=== PATIENT | female | born 1970 | race Caucasian/White ===

== ENCOUNTER 2017-04-18 13:15 | Outpatient (CLI) | payer BC | END 2017-04-18 13:16 | disposition home or self-care (01) | LOC: ULT 13:15 | PROVIDERS: ATTEND Internal Medicine Hematology & Oncology | DX: Z51.11 Encounter for antineoplastic chemotherapy (principal); C15.8 Malignant neoplasm of overlapping sites of esophagus; I34.0 Nonrheumatic mitral (valve) insufficiency; I07.1 Rheumatic tricuspid insufficiency | CPT/HCPCS: 80053; 82248; 83615; 84100; 84550; 85025; 93306 ==

== ENCOUNTER 2017-05-03 20:24 | Inpatient (IN) | payer BC ==
[~2017-05-03 20:24] MED LIST: ISOVUE-370 76%-LOCM 1 ML ONE
[2017-05-03 21:17] LABS: Hematocrit 37.1 % (36.0-47.0); Mean Platelet Volume 6.9 fL (7.4-10.4); Red Blood Cell (RBC) Count 4.33 mill/uL (4.20-5.40); White Blood Cell (WBC) Count 0.5 thou/uL (4.8-10.8)
[2017-05-03 21:26] LABS: ALT (SGPT) 108 U/L (8-55); AST (SGOT) 81 U/L (5-34); Alkaline Phosphatase 131 U/L (40-150); Anion Gap 13 mmol/L (10-20); BUN (Urea Nitrogen) 4 mg/dL (7.0-18.7); Bilirubin, Total 1.9 mg/dL (0.2-1.2); Calc. Creatinine Clearance 0 mL/min (70-130); Calcium 8.2 mg/dL (7.8-10.44); Carbon Dioxide 21 mmol/L (22-29); Chloride 98 mmol/L (98-107); Estimated GFR-MDRD Greater than 90; Globulin 2.6 g/dL (2.4-3.5); Lipase 66 U/L (8-78)
--- NOTE | 2017-05-03 21:41 | RAD ---
PORTABLE CHEST ONE VIEW: 05/03/2017 8:36 p.m. HISTORY: Fever. Dizziness. Diarrhea. Nausea. COMPARISON: 03/19/2017 FINDINGS: The right-sided Port-A-Cath remains in place. The heart size is normal. The lungs are well expande d without confluent areas of consolidation, pneumothorax, or pleural effusions. IMPRESSION: No acute process. POS: [facility]
[2017-05-03 22:08] LABS: Lactic Acid - Sepsis 2.8 mmol/L (0.5-2.2)
[2017-05-03] MEDS ORDERED: Acetaminophen 325 MG TAB ONE (22:38)
[2017-05-03] MEDS ORDERED: Ondansetron HCl/PF 4 MG/2 ML Vial ONE (22:38)
[2017-05-03 22:44] LABS: Bilirubin Small (Negative); Blood, Urine Negative (Negative); Glucose, Urine (Dipstick) Negative (Negative); Ketone, Urine Trace mg/dL (Negative); Nitrite Negative (Negative); Protein, Urine (Dipstick) Negative (Neg-Trace)
[2017-05-03] MEDS ORDERED: Cefepime 2 GM in Sodium Chloride 0.9% 100 ML IVPB SCH (22:45)
[2017-05-03 22:47] LABS: Bacteria/HPF None Seen HPF (None Seen); Hyaline Casts/LPF 0-3 HYALINE CAST LPF (0-3 Hyaline); RBC/HPF 0-3 HPF (0-3); Squamous Epithelial 0-3 HPF (0-3); WBC/HPF 0-3 HPF (0-3)
[2017-05-03] MEDS ORDERED: Potassium Chloride 20 MEQ in Sodium Chloride 0.9% 250 ML 250 ML IVPB SCH (23:45)
--- NOTE | 2017-05-03 23:46 | PDOC.EVN ---
Event Note - Event Note Event Note: [id number] h&p dictated 1. Neutropenic fever 2. Abdominal pain + Diarrhea 3. Hypokalemia 4. Hyponatremia 5. Metastatic esophageal ca plan: see orders
--- NOTE | 2017-05-03 23:58 | CT ---
CT ABDOMEN AND PELVIS WITH IV CONTRAST 05/03/17 HISTORY: Fever, nausea, vomiting, diarrhea, diffuse abdominal pain. Patient is currently undergoing chemother apy for esophageal cancer. Last treatment eight days ago. FINDINGS: Comparison is made with exam of 03/07/17. There has been interval improvement in the left lower lobe consolidation since the CT scan of the est dated 03/10/17. Bilateral pleural effusions have resolved. There are changes of fatty infiltration of the liver. There is focal area of relatively lower attenu ation in the liver close to the hilum which may be part of the fatty infiltration since there is a v essel passing through this region and less likely mass. The patient is post cholecystectomy. The spl een is enlarged. The pancreas, and kidneys are normal. There has been interval reduction in the size of the upper abdominal lymph nodes measuring 16 mm in the gastrohepatic region and 15 mm in the rig ht retrocrural region. The right adrenal mass currently measures 2 cm. The left adrenal mass has res olved in the interim. No free air is seen. There is a small amount of free fluid in the pelvis. The uterus and ovaries are present. The right retroperitoneal soft tissue mass/enlarged lymph node is significantly smaller. T he small bowel loops are not abnormally dilated. No osteolytic or osteoblastic lesions are noted. IMPRESSION: 1. Interval improvement since 03/07/17. 2. Small amount of free fluid in the pelvis is new since the previous exam of 03/07/17. POS: [facility]
[2017-05-04] MEDS ORDERED: HYDROcodone/Acetaminophen 5/325 mg Tablet PO PRN (00:34)
[2017-05-04] MEDS ORDERED: Ondansetron HCl/PF 4 MG/2 ML Vial IVP PRN (00:34)
[2017-05-04] MEDS ORDERED: Acetaminophen 325 MG TAB PO PRN (00:34)
[2017-05-04] MEDS ORDERED: PROVENTIL INHALER 6.7 G (200 INHALATIONS) INH PRN (00:36)
[2017-05-04] MEDS ORDERED: Morphine IR Tab 15 MG TAB PO SCH (01:00)
[2017-05-04] MEDS ORDERED: Morphine IR Tab 15 MG TAB PO PRN (01:04)
[2017-05-04 02:09] VITALS: BMI 28.5
[2017-05-04] MEDS: Sodium Chloride 0.9% 1,000 ML IV SCH ×3 (02:36→17:31)
[2017-05-04] MEDS ORDERED: metroNIDAZOLE 500 MG in Premix Bag 1 BAG IVPB SCH (06:00)
[2017-05-04 06:27] LABS: Anion Gap 10 mmol/L (10-20); BUN (Urea Nitrogen) 4 mg/dL (7.0-18.7); Calc. Creatinine Clearance 167 mL/min (70-130); Calcium 7.5 mg/dL (7.8-10.44); Carbon Dioxide 20 mmol/L (22-29); Chloride 103 mmol/L (98-107); Estimated GFR-MDRD Greater than 90
[2017-05-04 06:33] LABS: Anisocytosis MODERATE=16-30 cells (100X) (0-5/hpf); Band 4 % (5-11); Hematocrit 33.7 % (36.0-47.0); Macrocytosis SLIGHT = 6-15 cells (100X) (0-5/hpf); Mean Platelet Volume 8.1 fL (7.4-10.4); Neutrophil 12 % (42-75); Ovalocytes SLIGHT = 2-5 cells (100X) (0-1/hpf); Polychromasia SLIGHT = 2-3 cells (100X) (0-2/hpf); Reactive Lymphocytes 8 % (0-10); Tear Drops SLIGHT = 2-5 cells (100X) (0-1/hpf); White Blood Cell (WBC) Count 1.3 thou/uL (4.8-10.8)
[2017-05-04] MEDS ORDERED: Ferrous Sulfate 325 MG TAB PO SCH (09:00)
[2017-05-04] MEDS ORDERED: Morphine ER 30 MG TAB PO SCH (09:00)
--- NOTE | 2017-05-04 09:45 | HP ---
DATE OF ADMISSION: 05/03/2017 HISTORY OF PRESENT ILLNESS: The patient is 46 years old female with past medical history of metasta tic esophageal cancer, pancreatitis, obesity, currently on chemotherapy, last chemotherapy was 1 wee k back. The patient now came to the hospital because of the fever, body aches, and vomiting, and ab dominal pain. The patient started having abdominal pain yesterday, abdominal pain is more on the ri ght side of the abdomen and it has been constant. No aggravating or relieving factors. Associated with the diarrhea also, the patient has diarrhea for the last 6 months since the chemotherapy was st arted. Complaints of fever, fever is around 102 today. Denies any chest pain, denies any trouble b reathing, denies any cough, denies any sputum production. The patient complains of episodes of vomi ting also and fatigue, that is why she came to the ER. PAST MEDICAL HISTORY: As per HPI. PAST SURGICAL HISTORY: Cholecystectomy, ERCP, knee surgery, MediPort placement. SOCIAL HISTORY: Denies smoking, denies alcohol, denies any drugs. FAMILY HISTORY: Positive for heart problems. REVIEW OF SYSTEMS: Constitutional: Positive for body aches. Positive for fatigue. Positive for f ever. Eyes: Denies any vision problems. Ears: Denies any hearing loss. Neck: Denies any neck p ain. Cardiovascular system: Denies any chest pain, denies any palpitations. Gastrointestinal: Po sitive for abdominal pain. Positive for nausea, vomiting. Musculoskeletal: Positive for generaliz ed body aches. Integumentary: Denies any rash. Cranial nerve system: Denies syncope, denies ligh theadedness. Psychiatric: Denies anxiety. All other review of systems are reviewed and are negati ve. PHYSICAL EXAMINATION: CONSTITUTIONAL/VITAL SIGNS: At the time of H and P performed, blood pressure is stable, 102 in the ER temperature, pulse ox 97% on room air. GENERAL: The patient appears comfortable. HEENT: Pupils equal, round, and reactive. Anterior naris patent. Nose normal. Teeth intact. Ton zandra is moist. NECK: Supple. No JVD. CARDIOVASCULAR SYSTEM: S1, S2 present. Regular rate and rhythm, no murmurs, no rubs, no gallops. RESPIRATORY SYSTEM: Diminished breath sounds present. No wheezing, no rhonchi. Normal effort. GASTROINTESTINAL: Abdomen is tender to palpate, mild all over the abdomen. No guarding, no rebound tenderness. MUSCULOSKELETAL: No edema. INTEGUMENTARY: No rashes seen. PSYCHIATRIC: Mood appropriate at this time. LABORATORY DATA: At the time of H and P performed, white count 2.5, hemoglobin 12, platelet count i s 49. BMP shows sodium 129, potassium 3, chloride 98, CO2 of 21, BUN of 4, creatinine 0.59. AST 81 , ALT 108, alkaline phosphatase 131, albumin 3.4. Chest x-ray no obvious infiltrates seen. ASSESSMENT AND PLAN: The patient is 46 years old female: 1. Neutropenic fever. Plan to do blood cultures, urine culture, and sensitivity. Plan to consult ID to evaluate the patient. Plan to start the patient on broad spectrum antibiotics and will follow the patient. 2. Abdominal pain plus chronic diarrhea. Plan to check CT abdomen and pelvis with IV contrast to e valuate any colitis. Plan to start patient empirically on IV Flagyl also and we will monitor the pa tient closely, p.r.n. pain medications. 3. History of metastatic esophageal cancer. Plan to consult Hematology/Oncology to evaluate the pa tient for nausea, vomiting, p.r.n. antiemetics, start IV fluids. 4. Hypokalemia. Monitor potassium and replace potassium. 5. Hyponatremia due to hypovolemia. Monitor sodium level. We will start IV fluids. The case was discussed in detail with the patient. The patient is FULL CODE.
[2017-05-04] MEDS: Famotidine 20 MG TAB PO SCH ×2 (10:13→20:16)
[2017-05-04] MEDS ORDERED: [UNRECOGNIZED DRUG - OTHER] IVPB PRN (10:39)
[2017-05-04 11:02] LABS: Magnesium 1.3 mg/dL (1.6-2.6)
[2017-05-04] MEDS ORDERED: Magnesium Sulfate 4 GM, Admixture Fee 1 EACH in Sodium Chloride 0.9% 250 ML 250 ML IVPB SCH (11:15)
[2017-05-04] MEDS ORDERED: Ondansetron HCl/PF 8 MG, Admixture Fee 1 EACH in Sodium Chloride 0.9% 50 ML IVPB PRN (11:16)
[2017-05-04] MEDS: Cefepime 2 GM in Sodium Chloride 0.9% 100 ML IVPB SCH ×2 (12:01→20:16)
[2017-05-04] MEDS: K-Phos Neutral 250 MG TAB PO SCH ×3 (12:03→20:16)
--- NOTE | 2017-05-04 12:26 | CON ---
DATE OF CONSULTATION: 05/04/2017 REASON FOR CONSULTATION: Neutropenic fever. HISTORY OF PRESENT ILLNESS: Ms. Cummings is a 46-year-old female, who has stage IV metastatic esophag eal adenocarcinoma, currently undergoing treatment with FOLFOX and weekly Herceptin. Her last Herce ptin was on Sunday. She received FOLFOX on 04/26/2017. She has had significant nausea issues with FOLFOX treatment. She has been on Varubi and Sancuso patch. She removed her Sancuso pa tch on Sunday as directed and began to have nausea. On , she was unable to keep anything d own. She also had some abdominal pain and fevers, so presented to the emergency room for evaluation : Her WBC count was 900. She had a 101.3 fevers, so was admitted for neutropenia. She has been pa ncultured and started on empiric antibiotics with vancomycin and cefepime. Her white count has impr lan today slightly. Her diarrhea has controlled, but she still complains of nausea and overall fat igue. PAST MEDICAL HISTORY: 1. Stage IV esophageal cancer. 2. Arthritis. 3. Anemia. 4. Acid reflux. PAST SURGICAL HISTORY: 1. Left knee replacement. 2. Cholecystectomy. ALLERGIES: No known drug allergies. HOME MEDICATIONS: 1. Ativan 0.5 mg p.o. q.6 hours p.r.n. 2. Protonix 40 mg daily. 3. Sancuso patch every 7 days. 4. Varubi on the day of treatment. 5. Zofran p.r.n. FAMILY HISTORY: Noncontributory. SOCIAL HISTORY: , lives alone. No children. No alcohol, tobacco or illicit drug use. REVIEW OF SYSTEMS: CONSTITUTIONAL: Positive for fever, chills. No night sweats or weight loss. EYES: No blurred or double vision. ENT: No pain, hoarseness, sore throat or dysphagia. CARDIOVASCULAR: No chest pain, palpitations or syncope. RESPIRATORY: No shortness of breath, dyspnea on exertion or orthopnea. GASTROINTESTINAL: Positive for nausea, vomiting, diarrhea, and abdominal pain. GENITOURINARY: No dysuria or hematuria. MUSCULOSKELETAL: No joint or back pain. SKIN: No rash or pruritus. HEMATOLOGIC: No bleeding, bruising or clotting. NEUROLOGIC: Positive for weakness. No headache, numbness, tingling or seizure activity. PSYCHIATRIC: Positive for anxiety and depression. PHYSICAL EXAMINATION: VITAL SIGNS: Temperature is 97.9, pulse is 103, respiratory rate 22, BP is 119/75. She is 100% on room air. GENERAL: Well-developed, well-nourished female in no acute distress. HEENT: Normocephalic, atraumatic. Pupils equal and reactive to light. NECK: Supple with some right supraclavicular lymph nodes. CARDIOVASCULAR: Regular rate and rhythm. LUNGS: Clear. ABDOMEN: Soft, nontender, bowel sounds are positive. EXTREMITIES: No clubbing, cyanosis or edema. SKIN: No rash. HEMATOLOGIC: No petechia or purpura. NEUROLOGICAL: Nonfocal. PSYCHIATRIC: The patient is alert and oriented and appropriate. PERTINENT LABORATORY AND X-RAYS: Current WBCs of 1300, hemoglobin 10.7, hematocrit 33.7, platelet c ount is 39,000, 12% neutrophils, 4% bands, 44% lymphocytes. Sodium is 130, potassium 3.4, chloride 103, CO2 is 20, BUN is 4, creatinine 0.51. Lactic acid is 2.4, calcium 7.5, phosphorus 2, magnesium 1.3, bilirubin is 1.9, AST is 81, ALT is 108, alkaline phosphatase is 131. Serum total protein 3, albumin 3.4, globulin 2.6, lipase 66. Urine is negative for bacteria. Abdominal pelvis CT shows no acute finding but interval improvement since the February CT. Chest x-ray showed no acute process. ASSESSMENT: 1. Metastatic esophageal cancer, on chemotherapy. 2. Neutropenic fever secondary to #1. 3. Thrombocytopenia secondary to #1. 4. Abdominal pain with nausea, vomiting, and diarrhea. DISCUSSION: The patient has been pancultured and started on empiric antibiotics. She has been feve r free since admission. She does complain of nausea. We will add some antiemetic medications as becka bustamante requires a significant amount of meds to control her nausea. We will continue the IV fluid. Teo mmended discharge home once her fever is resolved for greater than 24 hours and her neutrophil count continues to rise.
--- NOTE | 2017-05-04 12:38 | PQF ---
CLINICAL DOCUMENTATION IMPROVEMENT CLARIFICATION FORM: ICD-10 Updated PLEASE DO AN ADDENDUM TO THE PROGRESS NOTE WITH ANY DOCUMENTATION UPDATES OR ADDITIONS AND CARRY THROUGH TO DC SUMMARY. THANK YOU. DATE: 05/04/17 ATTN: DR. CLAY Please exercise your independent, professional judgment in responding to the clarification form. Clinical indicators are provided on the bottom of this form for your review Please check appropriate box(s): [ ] Sepsis due to: (Pna, UTI, gangrenous gall bladder, etc.) Due to: [ ] Device (please specify) [ ] Implant [ ] Graft [ ] Infusion [ ] SIRS due to non-infectious process (please specify etiology) [ ] with organ dysfunction [ ] without organ dysfunction [ ] Severe sepsis with acute organ dysfunction of: (Examples: respiratory failure, encephalopathy, acute kidney failure, other) [ ] Localized infection without sepsis [ ] Other diagnosis [ ] Unable to determine In addition, please specify: Present on Admission (POA): [ ] Yes [ ] No [ ] Unable to determine For continuity of documentation, please document condition throughout progress notes and discharge summary. Thank You. CLINICAL INDICATORS - SIGNS / SYMPTOMS / LABS ER NOTE: "SEPSIS" PULSE 126 RR 25 TEMP 101.3 LACTIC ACID 2.4 GLUCOSE 173 RISKS: METASTATIC ESOPHAGEAL CA WITH CHEMO TREATMENT: IV FLUIDS IV VANCOMYCIN (ER-PRESENT) IV FLAGYL IV MAXIPIME (ER-PRESENT) BLOOD CULTURES CARDIAC MONITORING (This form is maintained as a part of the permanent medical record) 2014 [employer]. All Rights Reserved KAELYN [email or web address] Office: [phone] Thanks GUILLERMO
[2017-05-04] MEDS ORDERED: Lorazepam 0.5 MG TAB PO SCH (13:00)
[2017-05-04] MEDS: Lorazepam 0.5 MG TAB PO SCH ×3 (13:08→20:16)
--- NOTE | 2017-05-04 13:14 | PDOC.PN ---
- Subjective Encounter Start Date: 05/04/17 Encounter Start Time: 12:00 Patient seen and examined. Diarrhea improving. Afebrile. Feels somewhat better. No overnight events - Objective MAR Reviewed: Yes Vital Signs & Weight: Vital Signs (12 hours) Temp Pulse Resp BP Pulse Ox 05/04/17 11:30 99 F 98 16 106/61 96 05/04/17 02:05 97.9 F 103 H 22 H 119/75 100 I&O: 05/03/17 05/04/17 05/05/17 06:59 06:59 06:59 Intake Total 460 Balance 460 Result Diagrams: 05/04/17 05:22 05/04/17 05:22 Additional Labs: Laboratory Tests 05/04/17 05:22 Phosphorus 2.0 L Magnesium 1.3 L EKG Reviewed by me: Yes (Tele SR) Phys Exam - Physical Examination Constitutional: NAD Respiratory: no wheezing, no rales, no rhonchi Dec AE at bases, Symmetrical Cardiovascular: RRR, no rub no rubs/gallops Gastrointestinal: soft, no distention, positive bowel sounds mild gen tenderness Musculoskeletal: no edema Neurological: non-focal, moves all 4 limbs Psychiatric: normal affect, A&O x 3 Dx/Plan (1) Sepsis with acute organ dysfunction Code(s): A41.9 - SEPSIS, UNSPECIFIED ORGANISM; R65.20 - SEVERE SEPSIS WITHOUT SEPTIC SHOCK Status: Acute (2) Neutropenic fever Code(s): D70.9 - NEUTROPENIA, UNSPECIFIED; R50.81 - FEVER PRESENTING WITH CONDITIONS CLASSIFIED ELSEWHERE Status: Acute (3) Nausea vomiting and diarrhea Code(s): R11.2 - NAUSEA WITH VOMITING, UNSPECIFIED; R19.7 - DIARRHEA, UNSPECIFIED Status: Acute Comment: with abd pain (4) Electrolyte abnormality Code(s): E87.8 - OTH DISORDERS OF ELECTROLYTE AND FLUID BALANCE, NEC Status: Acute Comment: Hyponatremia, Hypokalemia, Hypophosphatemia (5) Pancytopenia due to chemotherapy Code(s): D61.810 - ANTINEOPLASTIC CHEMOTHERAPY INDUCED PANCYTOPENIA Status: Acute (6) Hypochromic microcytic anemia Code(s): D50.9 - IRON DEFICIENCY ANEMIA, UNSPECIFIED Status: Chronic (7) Esophageal cancer Status: Chronic (8) Metabolic acidosis Code(s): E87.2 - ACIDOSIS Status: Acute Comment: Lactic acidosis - Plan cont current plan of care, continue antibiotics, DVT proph w/SCDs * Transfer to Oncology * Replace electrolytes * Cont Vancomycin/Cefepine * Oncology following * Await ID input * Cont to monitor * Monitor Vancomycin levels * DC MS ROBB - Patient has this med at home - however has stopped taking it. * Resume other home meds * Add stool w/u Review of Systems - Review of Systems Respiratory: negative: Cough, Dry, Shortness of Breath, Hemoptysis, SOB with Excertion, Pleuritic Pain, Sputum, Wheezing Cardiovascular: negative: Chest Pain, Palpitations, Orthopnea, Paroxysmal Noc. Dyspnea, Edema, Light Headedness, Other - Medications/Allergies Allergies/Adverse Reactions: Allergies Allergy/AdvReac Type Severity Reaction Status Date / Time chicken derived Allergy Verified 03/07/17 17:22 egg Allergy Verified 03/07/17 17:22 Medications: Current Medications Acetaminophen (Tylenol) 650 mg PO Q4H PRN PRN Reason: Headache/Fever or Pain Hydrocodone Bitart/Acetaminophen ([place] 5/325) 1 tab PO Q4H PRN PRN Reason: Moderate Pain (4-6) Albuterol Sulfate (Proventil Hfa) 2 puff INH Q6H PRN PRN Reason: SOB &/or Wheezing Famotidine (Pepcid) 20 mg PO BID [facility] Last Admin: 05/04/17 10:13 Dose: 20 mg Cefepime HCl 2 gm/ Sodium (Chloride) 100 mls @ 200 mls/hr IVPB Q12HR [facility] Last Admin: 05/04/17 12:01 Dose: 100 mls Sodium Chloride (Normal Saline 0.9%) 1,000 mls @ 100 mls/hr IV .Q10H [facility] Last Admin: 05/04/17 02:36 Dose: 1,000 mls Vancomycin HCl 1.5 gm/ Sodium (Chloride) 300 mls @ 200 mls/hr IVPB 1200,2359 [facility] Metronidazole 500 mg/ Device 100 mls @ 100 mls/hr IVPB Q8HR [facility] Last Admin: 05/04/17 05:29 Dose: 100 mls Magnesium Sulfate 4 gm/Miscellaneous Medication 1 each/ Sodium Chloride 258 mls @ 86 mls/hr IVPB ONE [facility] Stop: 05/04/17 15:00 Last Admin: 05/04/17 13:04 Dose: 258 mls Ondansetron HCl 8 mg/Miscellaneous Medication 1 each/ Sodium Chloride 54 mls @ 200 mls/hr IVPB Q6H PRN PRN Reason: Nausea Lorazepam (Ativan) 0.5 mg PO QID [facility] Last Admin: 05/04/17 13:08 Dose: 0.5 mg Miscellaneous Medication (Pharmacy To Dose) 1 each IVPB PRN PRN PRN Reason: Pharmacy to dose Morphine Sulfate (Morphine Sulfate Ir Tab) 15 mg PO Q4H PRN PRN Reason: breakthrough Pain Last Admin: 05/04/17 02:32 Dose: 15 mg Ondansetron HCl (Zofran) 4 mg IVP Q6H PRN PRN Reason: Nausea/Vomiting Last Admin: 05/04/17 10:21 Dose: 4 mg Pantoprazole Sodium (Protonix) 40 mg PO DAILY [facility] Phosphorus ([place] Neutral) 500 mg PO QID- [facility] Last Admin: 05/04/17 12:03 Dose: 500 mg Promethazine HCl (Phenergan) 25 mg PO Q6H PRN PRN Reason: Nausea/Vomiting Sodium Chloride (Flush - Normal Saline) 10 ml IVF Q12HR [facility] Last Admin: 05/04/17 10:15 Dose: Not Given Sodium Chloride (Flush - Normal Saline) 10 ml IVF PRN PRN PRN Reason: Saline Flush
--- NOTE | 2017-05-04 13:56 | CON ---
DATE OF CONSULTATION: 05/04/2017 REASON FOR CONSULTATION: Fever and neutropenia. HISTORY OF PRESENT ILLNESS: A 46-year-old with a history of stage IV esophageal cancer, undergoing treatment with palliative chemo with FOLFOX and Herceptin through a port in the right subclavian loc ation. The patient developed some abdominal pain which was fairly intense localized to the entire a bdomen associated with fever and inability to keep any food or fluid. Initial evaluation showed a t emperature of 101, total neutrophil count in the 200 range and therefore she was admitted and starte d on broad spectrum coverage. CT of abdomen and pelvis with actual improvement. The spleen was fel t to be enlarged. There was evidence of reduction in size of abdominal lymph nodes, left adrenal ma ss had resolved and right adrenal mass was 2 cm. Currently, she is feeling better. She denies any headaches, visual symptoms, sore throat, odynophag ia, dysphagia, nausea is still there a little bit. No cough, no chest pain. Abdominal pain has imp roved markedly. Still with loose stools intermittently, voiding without difficulty. No joint sympt oms. No neurological symptoms. PAST MEDICAL HISTORY: Metastatic esophageal cancer, degenerative arthritis, prior left knee replace ment, cholecystectomy, chemotherapy, port placement. ALLERGIES: None. MEDICATIONS: Ativan, Protonix, Varvi and Sancuso, for nausea management Zofran. FAMILY HISTORY: Noncontributory. SOCIAL HISTORY: Never a smoker. No alcoholic beverage use. PHYSICAL EXAMINATION: VITAL SIGNS: T-max 97.9 to 99, blood pressure 106/61, pulse 98-103, respirations 16, O2 sat 96 to 1 00%. SKIN: Not remarkable. Port site appears normal and is accessed. No King catheter. No lymphadeno faith. HEENT: Ocular movements are conjugate. Sclerae white. Oral cavity normal. NECK: Supple. LUNGS: With symmetric clear breath sounds. HEART: S1, S2, regular rate. No S3 or S4. ABDOMEN: Slightly distended, not tender anymore. No bladder distention. No organomegaly or ascite s. EXTREMITIES: No joint inflammatory activity, no edema, clubbing or cyanosis. Pulses are 1+ in dors natanael pedis. Plantar responses are flexor. No clonus. Moves all extremities equally. NEUROLOGIC: Cognitive function appears to be intact. LABORATORY DATA: White cell count is now 1.3, total neutrophil count 200, hemoglobin 10.7, platelet s 39. Sodium 130, creatinine 0.51, AST 81, ALT 108, albumin 3.4, bilirubin 1.9. Urinalysis with fa irly unremarkable findings. Microbiology with 2 sets of blood cultures, no growth thus far. Negati ve influenza testing and a chest x-ray with no acute process. ASSESSMENT: 1. Metastatic esophageal cancer on chemotherapy with FOLFOX and Herceptin. 2. Neutropenia with fever and abdominal pain. DISCUSSION: The patient to continue on broad spectrum coverage. In view of the CT findings, I woul d go ahead and discontinue Flagyl and maintain vancomycin and cefepime and should expect prompt ninfa very of neutrophil count and resolution of the fever. If blood cultures remain negative then transi tion to oral antimicrobial therapy for discharge planning. If the blood cultures result positive, t hen will have to assess for the possibility of a device colonization.
[2017-05-04] MEDS: Vancomycin HCl 1.5 GM in Sodium Chloride 0.9% 250 ML 300 ML IVPB SCH (14:45)
[2017-05-05] MEDS: Loperamide HCl 2 MG CAP PO PRN ×5 (00:01→12:12)
[2017-05-05] MEDS: Vancomycin HCl 1.5 GM in Sodium Chloride 0.9% 250 ML 300 ML IVPB SCH ×3 (00:01→21:33)
[2017-05-05 05:02] LABS: Phosphorus 1.3 mg/dL (2.3-4.7)
[2017-05-05] MEDS: Sodium Chloride 0.9% 1,000 ML IV SCH ×2 (06:25→18:18)
[2017-05-05] MEDS ORDERED: Potassium Phosphate 9 MMOL in Sodium Chloride 0.9% 250 ML 250 ML IVPB SCH (06:30)
[2017-05-05] MEDS ORDERED: Potassium Chloride 20 MEQ TAB PO SCH (07:00)
[2017-05-05] MEDS: K-Phos Neutral 250 MG TAB PO SCH ×4 (07:07→21:20)
[2017-05-05] MEDS: Pantoprazole 40 MG GRANULES PACKET PO SCH (08:34)
[2017-05-05] MEDS: Cefepime 2 GM in Sodium Chloride 0.9% 100 ML IVPB SCH ×2 (08:34→21:29)
[2017-05-05] MEDS: Famotidine 20 MG TAB PO SCH ×2 (08:35→21:25)
[2017-05-05] MEDS: Lorazepam 0.5 MG TAB PO SCH ×4 (08:35→21:25)
--- NOTE | 2017-05-05 11:48 | PDOC.PN ---
- Subjective Encounter Start Date: 05/05/17 Encounter Start Time: 11:20 Subjective: No new complaint+diarrhea, vomiting. - Objective Vital Signs & Weight: Vital Signs (12 hours) Temp Pulse Resp BP BP Pulse Ox 05/05/17 07:36 98.1 F 76 16 05/05/17 07:34 98.1 F 76 16 111/63 99 05/05/17 04:00 98.6 F 82 18 119/59 L 05/05/17 01:19 96 05/05/17 00:00 98.8 F 84 18 107/59 L 98 Weight Admit Weight 166 lb Weight 166 lb I&O: 05/04/17 05/05/17 05/06/17 06:59 06:59 06:59 Intake Total 460 1440 Output Total 1900 Balance 460 -460 Result Diagrams: 05/04/17 05:22 05/05/17 04:22 Phys Exam - Physical Examination Constitutional: NAD HEENT: moist MMs, sclera anicteric Neck: no JVD Respiratory: clear to auscultation bilateral Cardiovascular: RRR Gastrointestinal: soft, non-tender Musculoskeletal: no edema Neurological: moves all 4 limbs Psychiatric: A&O x 3 Dx/Plan (1) Hypokalemia Code(s): E87.6 - HYPOKALEMIA Status: Acute Plan: f/u chemistry. Comment: supplemented. (2) Hypomagnesemia Code(s): E83.42 - HYPOMAGNESEMIA Status: Acute Plan: f/u Mg level.. (3) Metabolic acidosis Code(s): E87.2 - ACIDOSIS Status: Acute Comment: Non AG , due to diarrhea. (4) Nausea vomiting and diarrhea Code(s): R11.2 - NAUSEA WITH VOMITING, UNSPECIFIED; R19.7 - DIARRHEA, UNSPECIFIED Status: Acute Plan: f/u stools c.dif. Most likely diarrhea is due to chemotherapy. Comment: with abd pain (5) Neutropenic fever Code(s): D70.9 - NEUTROPENIA, UNSPECIFIED; R50.81 - FEVER PRESENTING WITH CONDITIONS CLASSIFIED ELSEWHERE Status: Acute Plan: As per oncology. Received granulocyte stimulating factor. (6) Pancytopenia due to chemotherapy Code(s): D61.810 - ANTINEOPLASTIC CHEMOTHERAPY INDUCED PANCYTOPENIA Status: Acute (7) Sepsis with acute organ dysfunction Code(s): A41.9 - SEPSIS, UNSPECIFIED ORGANISM; R65.20 - SEVERE SEPSIS WITHOUT SEPTIC SHOCK Status: Acute Plan: f/u BxC (8) Esophageal cancer Status: Chronic - Plan * .
[2017-05-05 12:55] LABS: Magnesium 1.9 mg/dL (1.6-2.6)
[2017-05-05 13:00] LABS: Phosphorus 1.2 mg/dL (2.3-4.7)
[2017-05-05 13:27] LABS: Hematocrit 28.7 % (36.0-47.0); Mean Platelet Volume 7.3 fL (7.4-10.4); Red Blood Cell (RBC) Count 3.34 mill/uL (4.20-5.40); White Blood Cell (WBC) Count 2.2 thou/uL (4.8-10.8)
[2017-05-05 14:13] LABS: Anisocytosis SLIGHT = 6-15 cells (100X) (0-5/hpf); Band 23 % (5-11); Dohle Bodies SLIGHT; Elliptocytes SLIGHT = 2-5 cells (100X) (0-1/hpf); Metamyelocyte 1 % (0-0); Myelocyte 1 % (0-0); Neutrophil 15 % (42-75); Nucleated RBC 2 % (0); Ovalocytes SLIGHT = 2-5 cells (100X) (0-1/hpf); Polychromasia SLIGHT = 2-3 cells (100X) (0-2/hpf); Reactive Lymphocytes 7 % (0-10); Tear Drops SLIGHT = 2-5 cells (100X) (0-1/hpf); Toxic Granulation SLIGHT
[2017-05-05] MEDS: DEXAMETHASONE IVPB SCH (16:18)
[2017-05-05] MEDS: ONDANSETRON HCL IVPB SCH (16:18)
[2017-05-05] MEDS: SODIUM CHLORIDE 0.9% IVPB SCH (16:18)
[2017-05-05] MEDS: Opium Tincture 10% (1ml Charge) PO SCH ×2 (18:14→22:00)
[2017-05-06] MEDS: DEXAMETHASONE IVPB SCH ×4 (00:16→23:28)
[2017-05-06] MEDS: SODIUM CHLORIDE 0.9% IVPB SCH ×4 (00:16→23:28)
[2017-05-06] MEDS: ONDANSETRON HCL IVPB SCH ×4 (00:16→23:28)
[2017-05-06] MEDS: Vancomycin HCl 1.5 GM in Sodium Chloride 0.9% 250 ML 300 ML IVPB SCH ×3 (03:55→19:59)
[2017-05-06] MEDS: Sodium Chloride 0.9% 1,000 ML IV SCH ×3 (04:15→18:09)
[2017-05-06 05:44] LABS: ALT (SGPT) 102 U/L (8-55); AST (SGOT) 50 U/L (5-34); Alkaline Phosphatase 188 U/L (40-150); Anion Gap 6 mmol/L (10-20); BUN (Urea Nitrogen) 12 mg/dL (7.0-18.7); Bilirubin, Total 0.4 mg/dL (0.2-1.2); Calc. Creatinine Clearance 186 mL/min (70-130); Calcium 7.6 mg/dL (7.8-10.44); Carbon Dioxide 36 mmol/L (22-29); Chloride 93 mmol/L (98-107); Estimated GFR-MDRD Greater than 90; Globulin 2.1 g/dL (2.4-3.5); Protein, Total 4.5 g/dL (6.0-8.3)
[2017-05-06] MEDS: Opium Tincture 10% (1ml Charge) PO SCH ×5 (06:01→20:37)
[2017-05-06 06:26] LABS: Band 1 % (5-11); Bite Cells SLIGHT = 2-5 cells (100X) (0-1/hpf); Mean Platelet Volume 6.2 fL (7.4-10.4); Neutrophil 80 % (42-75); Nucleated RBC 3 % (0); Red Blood Cell (RBC) Count 3.59 mill/uL (4.20-5.40); Schistocytes SLIGHT = 2-5 cells (100X) (0-1/hpf); Tear Drops SLIGHT = 2-5 cells (100X) (0-1/hpf); White Blood Cell (WBC) Count 5.9 thou/uL (4.8-10.8)
[2017-05-06] MEDS: K-Phos Neutral 250 MG TAB PO SCH ×4 (07:32→20:34)
[2017-05-06] MEDS: Famotidine 20 MG TAB PO SCH ×2 (08:47→20:36)
[2017-05-06] MEDS: Cefepime 2 GM in Sodium Chloride 0.9% 100 ML IVPB SCH ×2 (08:48→20:00)
[2017-05-06] MEDS: Pantoprazole 40 MG GRANULES PACKET PO SCH (08:49)
[2017-05-06] MEDS: Lorazepam 0.5 MG TAB PO SCH ×5 (11:26→22:59)
[2017-05-06 11:43] LABS: Vancomycin, Trough 18.8 ug/mL
--- NOTE | 2017-05-06 12:18 | PDOC.PN ---
- Subjective Encounter Start Date: 05/06/17 Encounter Start Time: 12:15 Subjective: No new complaint, feels better. -: +diarrhea. - Objective Vital Signs & Weight: Vital Signs (12 hours) Temp Pulse Resp BP Pulse Ox 05/06/17 08:00 97.4 F L 80 18 05/06/17 07:40 97.4 F L 80 18 127/80 96 05/06/17 04:00 97.7 F 74 18 131/71 97 Weight Admit Weight 166 lb Weight 166 lb I&O: 05/05/17 05/06/17 05/07/17 06:59 06:59 06:59 Intake Total 1440 6216 Output Total 1900 Balance -460 6216 Result Diagrams: 05/06/17 05:38 05/06/17 05:38 Phys Exam - Physical Examination HEENT: moist MMs Neck: no JVD Respiratory: clear to auscultation bilateral Cardiovascular: RRR Gastrointestinal: soft Musculoskeletal: no edema Neurological: moves all 4 limbs Psychiatric: A&O x 3 Dx/Plan (1) Hypokalemia Code(s): E87.6 - HYPOKALEMIA Status: Acute Comment: supplemented. (2) Hypomagnesemia Code(s): E83.42 - HYPOMAGNESEMIA Status: Acute (3) Metabolic acidosis Code(s): E87.2 - ACIDOSIS Status: Acute Comment: Non AG , due to diarrhea. (4) Nausea vomiting and diarrhea Code(s): R11.2 - NAUSEA WITH VOMITING, UNSPECIFIED; R19.7 - DIARRHEA, UNSPECIFIED Status: Acute Comment: with abd pain (5) Neutropenic fever Code(s): D70.9 - NEUTROPENIA, UNSPECIFIED; R50.81 - FEVER PRESENTING WITH CONDITIONS CLASSIFIED ELSEWHERE Status: Acute (6) Pancytopenia due to chemotherapy Code(s): D61.810 - ANTINEOPLASTIC CHEMOTHERAPY INDUCED PANCYTOPENIA Status: Acute (7) Sepsis with acute organ dysfunction Code(s): A41.9 - SEPSIS, UNSPECIFIED ORGANISM; R65.20 - SEVERE SEPSIS WITHOUT SEPTIC SHOCK Status: Acute (8) Esophageal cancer Status: Chronic - Plan Doing well. -: Neutropenia resolved. -: Home if OK with oncology. * .
[2017-05-06] MEDS ORDERED: Iopamidol 370 76% 100 ML VIAL ONE (14:56)
--- NOTE | 2017-05-06 17:24 | CT ---
CT OF CHEST WITH INTRAVENOUS CONTRAST ENHANCEMENT CT OF ABDOMEN AND PELVIS WITH INTRAVENOUS CONTRAST ENHANCEMENT: History: Follow up of esophageal carcinoma. Comparison: CT abdomen and pelvis, 05-03-17. PET scan 03-03-17. CT chest, abdomen, and pelvis 02-15-17. FINDINGS: The lungs show significant improvement in the areas of parenchymal consolidation as compared to the prior study. Some minimal residual changes along the major fissure on the left. There are small bila teral pleural effusions, left larger than right. The left effusion is larger than on the previous ex am. The right is similar. There has been a substantial improvement to the mediastinal lymphadenopathy. Right paratracheal node s are significantly reduced in size. A comparison is a node measuring 1.4 cm on the previous examina tion now measuring 7 mm. The circumferential wall thickening of the distal esophagus is also signifi cantly improved and the subcarinal lymph nodes appear to have almost completely resolved. There is a lso significant improvement in the bilateral hilar lymph nodes. The best example for comparison is a n azygous node on the previous exam measuring 2.5 cm and now measures 7 mm. The lower neck adenopath y is not completely visualized on this examination but the portion that is seen is significantly imp roved as compared to the previous exam. There is no significant axillary lymphadenopathy. Hiatal hernia is present. CT OF ABDOMEN PERFORMED WITH CONTRAST ENHANCEMENT: Liver shows no focal abnormalities. Spleen is enlarged. Pancreas region is unremarkable. The gallbla dder has been removed. The paraesophageal lymph nodes seen along the distal esophagus shows substan tial improvement, one that measured 2 cm in size on the previous examination now measures 4-5 mm. Re trocrural lymph node which measured 2.3 cm on the previous examination now measures 1.4 cm. Gastrohe patic lymph nodes are smaller. The right adrenal mass is decreased in size and measures 3.1 cm on the prior examination in maximum dimension, now measuring 1.6 cm. No significant periaortic lymphadenopathy is noted. Right and left kidneys are normal in size and not obstructed. CT OF PELVIS PERFORMED INTRAVENOUS CONTRAST ENHANCEMENT: There is no evidence of any significant adenopathy, mass, or free fluid. Due to the isodense appearance of some of the masses seen within the muscle it is difficult to defin itely compare, although the area within the tensor fascioletta on the left does appear improved. IMPRESSION: 1. Significant overall improvement of the appearance of the adenopathy within the chest, abdomen, an d pelvis. 2. Splenomegaly with fatty change of the liver. 3. Hiatal hernia. The soft tissue mass of the distal esophagus is also decreased in size. POS: [facility]
[2017-05-07] MEDS: Vancomycin HCl 1.5 GM in Sodium Chloride 0.9% 250 ML 300 ML IVPB SCH ×3 (04:03→21:11)
[2017-05-07 05:26] LABS: Mean Platelet Volume 8.2 fL (7.4-10.4); Red Blood Cell (RBC) Count 3.49 mill/uL (4.20-5.40); White Blood Cell (WBC) Count 14.8 thou/uL (4.8-10.8)
[2017-05-07 05:27] LABS: Band 16 % (5-11); Metamyelocyte 2 % (0-0); Neutrophil 64 % (42-75)
[2017-05-07] MEDS: DEXAMETHASONE IVPB SCH (07:17)
[2017-05-07] MEDS: ONDANSETRON HCL IVPB SCH (07:17)
[2017-05-07] MEDS: K-Phos Neutral 250 MG TAB PO SCH ×3 (07:17→17:31)
[2017-05-07] MEDS: SODIUM CHLORIDE 0.9% IVPB SCH (07:17)
[2017-05-07 09:12] LABS: Anion Gap 12 mmol/L (10-20); BUN (Urea Nitrogen) Less than 4 mg/dL (7.0-18.7); Calc. Creatinine Clearance 158 mL/min (70-130); Carbon Dioxide 21 mmol/L (22-29); Chloride 110 mmol/L (98-107); Estimated GFR-MDRD Greater than 90
[2017-05-07] MEDS: Lorazepam 0.5 MG TAB PO SCH ×4 (09:17→21:10)
[2017-05-07] MEDS: Cefepime 2 GM in Sodium Chloride 0.9% 100 ML IVPB SCH ×2 (09:17→21:11)
[2017-05-07] MEDS: Famotidine 20 MG TAB PO SCH ×2 (09:17→21:10)
[2017-05-07] MEDS: Pantoprazole 40 MG GRANULES PACKET PO SCH (09:18)
[2017-05-07] MEDS: Sodium Chloride 0.9% 1,000 ML IV SCH (09:46)
[2017-05-07] MEDS: Opium Tincture 10% (1ml Charge) PO SCH ×4 (10:22→21:09)
[2017-05-07] MEDS: NS 0.9% w/ 40 MEQ KCL 1,000 ML IV SCH (10:23)
--- NOTE | 2017-05-07 14:12 | PDOC.PN ---
- Subjective Encounter Start Date: 05/07/17 Encounter Start Time: 13:30 Patient seen and examined. No new complaints. No overnight events. Diarrhea + - Objective MAR Reviewed: Yes Vital Signs & Weight: Vital Signs (12 hours) Temp Pulse Resp BP BP Pulse Ox 05/07/17 08:00 98 F 68 16 132/69 98 05/07/17 04:00 98 F 78 18 126/74 98 Weight Admit Weight 166 lb Weight 166 lb I&O: 05/06/17 05/07/17 05/08/17 06:59 06:59 06:59 Intake Total 6216 4911 Balance 6216 4911 Result Diagrams: 05/07/17 04:20 05/07/17 08:26 Phys Exam - Physical Examination Constitutional: NAD Respiratory: no wheezing, no rales, no rhonchi Cardiovascular: RRR, no rub Gastrointestinal: soft, positive bowel sounds Musculoskeletal: no edema Neurological: moves all 4 limbs Dx/Plan (1) Sepsis with acute organ dysfunction Code(s): A41.9 - SEPSIS, UNSPECIFIED ORGANISM; R65.20 - SEVERE SEPSIS WITHOUT SEPTIC SHOCK Status: Acute (2) Neutropenic fever Code(s): D70.9 - NEUTROPENIA, UNSPECIFIED; R50.81 - FEVER PRESENTING WITH CONDITIONS CLASSIFIED ELSEWHERE Status: Acute (3) Nausea vomiting and diarrhea Code(s): R11.2 - NAUSEA WITH VOMITING, UNSPECIFIED; R19.7 - DIARRHEA, UNSPECIFIED Status: Acute Comment: with abd pain (4) Electrolyte abnormality Code(s): E87.8 - OTH DISORDERS OF ELECTROLYTE AND FLUID BALANCE, NEC Status: Acute Comment: Hyponatremia, Hypokalemia, Hypophosphatemia (5) Pancytopenia due to chemotherapy Code(s): D61.810 - ANTINEOPLASTIC CHEMOTHERAPY INDUCED PANCYTOPENIA Status: Acute Comment: improving (6) Hypochromic microcytic anemia Code(s): D50.9 - IRON DEFICIENCY ANEMIA, UNSPECIFIED Status: Chronic (7) Esophageal cancer Status: Chronic (8) Metabolic acidosis Code(s): E87.2 - ACIDOSIS Status: Acute - Plan cont current plan of care, DVT proph w/SCDs * Cont Atbx * ID/Oncology following * Cont to monitor * On Steroids * Cont Opium tincture * Replace Electrolytes * AM labs Review of Systems - Review of Systems Constitutional: negative: Fever, Chills, Sweats, Weakness, Malaise, Other Cardiovascular: negative: Chest Pain, Palpitations, Orthopnea, Paroxysmal Noc. Dyspnea, Edema, Light Headedness, Other Gastrointestinal: Diarrhea. negative: Nausea, Vomiting, Abdominal Pain, Constipation, Melena, Hematochezia, Other - Medications/Allergies Allergies/Adverse Reactions: Allergies Allergy/AdvReac Type Severity Reaction Status Date / Time chicken derived Allergy Verified 03/07/17 17:22 egg Allergy Verified 03/07/17 17:22 Medications: Current Medications Acetaminophen (Tylenol) 650 mg PO Q4H PRN PRN Reason: Headache/Fever or Pain Hydrocodone Bitart/Acetaminophen (Thrall 5/325) 1 tab PO Q4H PRN PRN Reason: Moderate Pain (4-6) Albuterol Sulfate (Proventil Hfa) 2 puff INH Q6H PRN PRN Reason: SOB &/or Wheezing Famotidine (Pepcid) 20 mg PO BID [facility] Last Admin: 05/07/17 09:17 Dose: 20 mg Cefepime HCl 2 gm/ Sodium (Chloride) 100 mls @ 200 mls/hr IVPB Q12HR [facility] Last Admin: 05/07/17 09:17 Dose: 100 mls Vancomycin HCl 1.5 gm/ Sodium (Chloride) 300 mls @ 200 mls/hr IVPB 0400,1200, 2000 [facility] Last Admin: 05/07/17 12:33 Dose: 300 mls Potassium Chloride/Sodium Chloride (Ns 0.9% W/ 40 Meq Kcl) 1,000 mls @ 100 mls/ hr IV .Q10H [facility] Last Admin: 05/07/17 10:23 Dose: 1,000 mls Loperamide HCl (Imodium) 2 mg PO PRN PRN PRN Reason: Diarrhea/Loose Stools Last Admin: 05/05/17 12:12 Dose: 2 mg Lorazepam (Ativan) 0.5 mg PO QID [facility] Last Admin: 05/07/17 12:34 Dose: 0.5 mg Miscellaneous Medication (Pharmacy To Dose) 1 each IVPB PRN PRN PRN Reason: Pharmacy to dose Miscellaneous Medication (Phos-Nak) 1 pkt PO BID-[facility] Morphine Sulfate (Morphine Sulfate Ir Tab) 15 mg PO Q4H PRN PRN Reason: breakthrough Pain Last Admin: 05/04/17 02:32 Dose: 15 mg Ondansetron HCl (Zofran Odt) 8 mg SL TID [facility] Opium Tincture (Opium Tincture 10%) 1 ml PO QID [facility] Last Admin: 05/07/17 10:22 Dose: 1 ml Pantoprazole Sodium (Protonix) 40 mg PO DAILY [facility] Phosphorus (Kphos Neutral) 500 mg PO QID-WM [facility] Last Admin: 05/07/17 12:34 Dose: 500 mg Potassium Chloride (Klor-Con) 20 meq PO BID-WM [facility] Prednisone (Prednisone) 20 mg PO QAM-WM [facility] Promethazine HCl (Phenergan) 25 mg PO Q6H PRN PRN Reason: Nausea/Vomiting Sodium Chloride (Flush - Normal Saline) 10 ml IVF Q12HR [facility] Last Admin: 05/07/17 09:18 Dose: 10 ml Sodium Chloride (Flush - Normal Saline) 10 ml IVF PRN PRN PRN Reason: Saline Flush
[2017-05-07] MEDS: Ondansetron ODT 8 MG TAB SL SCH ×2 (14:18→21:10)
[2017-05-08 04:36] LABS: Anion Gap 7 mmol/L (10-20); BUN (Urea Nitrogen) Less than 4 mg/dL (7.0-18.7); BUN/Creatinine Ratio 7.55; Calc. Creatinine Clearance 161 mL/min (70-130); Calcium 7.7 mg/dL (7.8-10.44); Carbon Dioxide 23 mmol/L (22-29); Chloride 111 mmol/L (98-107); Estimated GFR-MDRD Greater than 90; Magnesium 1.8 mg/dL (1.6-2.6)
[2017-05-08 05:23] LABS: Anisocytosis MODERATE=16-30 cells (100X) (0-5/hpf); Band 14 % (5-11); Hematocrit 28.4 % (36.0-47.0); Mean Platelet Volume 6.8 fL (7.4-10.4); Metamyelocyte 2 % (0-0); Neutrophil 62 % (42-75); Ovalocytes SLIGHT = 2-5 cells (100X) (0-1/hpf); Polychromasia SLIGHT = 2-3 cells (100X) (0-2/hpf); Red Blood Cell (RBC) Count 3.38 mill/uL (4.20-5.40); Tear Drops SLIGHT = 2-5 cells (100X) (0-1/hpf); White Blood Cell (WBC) Count 17.8 thou/uL (4.8-10.8)
[2017-05-08] MEDS: Vancomycin HCl 1.5 GM in Sodium Chloride 0.9% 250 ML 300 ML IVPB SCH (06:21)
[2017-05-08] MEDS ORDERED: predniSONE 20 MG TAB PO SCH (08:00)
[2017-05-08 08:15] VITALS: BP 157/83; TEMP 98.3
[2017-05-08] MEDS: Cefepime 2 GM in Sodium Chloride 0.9% 100 ML IVPB SCH (09:38)
[2017-05-08] MEDS: Ondansetron ODT 8 MG TAB SL SCH ×2 (09:38→16:02)
[2017-05-08] MEDS: Famotidine 20 MG TAB PO SCH (09:39)
[2017-05-08] MEDS: Lorazepam 0.5 MG TAB PO SCH ×3 (09:39→17:34)
[2017-05-08] MEDS: Opium Tincture 10% (1ml Charge) PO SCH ×3 (10:37→17:36)
[2017-05-08] MEDS: NS 0.9% w/ 40 MEQ KCL 1,000 ML IV SCH ×2 (13:02)
--- NOTE | 2017-05-08 16:00 | DIS ---
DATE OF DISCHARGE: 05/08/2017 DISCHARGE DISPOSITION: Home. FOLLOWUP: 1. Follow up with primary care physician, Dr. Anant Esquivel in 1 week. 2. Follow up with Dr. Moya as scheduled. 3. Base met with phosphorus in 3-4 days is recommended, primary care physician to follow. ALLERGIES: The patient is allergic to CHICKEN and EGGS. The patient was seen and examined on the day of discharge. Denies any new complaints. Diarrhea has improved. DISCHARGE MEDICATIONS: 1. Levaquin 500 mg daily for the next 5 days. 2. Imodium as needed. 3. Prednisone 10 mg daily for the next 2 days, then 5 mg for the next 2 days, then discontinue. 4. Potassium chloride 20 mEq twice a day for next 5 days. 5. Phos-NaK 1 packet twice a day. 6. Protonix 40 mg daily. 7. Zofran as needed. 8. Morphine sulfate as needed. 9. Prochlorperazine 10 mg 4 times a day. INPATIENT CONSULTANTS: Oncology, Dr. Moya. Infectious Disease, Dr. Gil. BRIEF HOSPITAL COURSE: The patient is a 46-year-old female with esophageal cancer, currently on marvin motherapy, who presented to the hospital with fever, nausea, vomiting, diarrhea, with generalized cheri dy aches. Please refer to the history and physical dated 05/04/2017 for further details. The patient was admitted to the hospital with the diagnosis of neutropenic fever. Her initial labs showed WBC of 0.5. She was started on broad spectrum antibiotics. A CT scan of the abdomen and pel vis on admission showed a small amount of free fluid in the pelvis, otherwise unremarkable. She was seen by Infectious Disease as well as Oncology. Her white blood cell gradually improved. Nausea a nd vomiting were controlled with antiemetics. Diarrhea was controlled with opium tincture. Overall , symptoms have improved. White blood cells on the day of discharge is 17.8. She also had electrol yte imbalance including hypokalemia, hypomagnesemia, and hypophosphatemia that has been replaced. S he appears stable for discharge. She has been cleared by Oncology Service. FINAL DIAGNOSES: 1. Sepsis with acute organ dysfunction/neutropenic fever. 2. Pancytopenia secondary to chemotherapy. 3. Nausea, vomiting, and diarrhea. 4. Electrolyte imbalance as discussed above. 5. Chronic anemia. 6. Moderate protein calorie malnutrition. 7. Esophageal cancer. 8. Fatty liver. 9. Hyponatremia, corrected. 10. Abnormal liver function tests. Her total bilirubin on admission was 1.9, repeat was 0.4. AST was 81 on admission and 50 two days later. 11. Repeat magnesium and phosphorus as outpatient is recommended later this week. Primary care han ch advised to follow. Plan of care was discussed with the patient in detail. She stated understanding.
== END 2017-05-08 18:35 | disposition home or self-care (01) | DRG 871 ==
LOC: ERS 20:24 → 2NO 05-04 02:02 → ONC 05-04 14:50
PROVIDERS: ADMIT Internal Medicine; ATTEND Internal Medicine
DX: A41.9 Sepsis, unspecified organism (principal); D61.810 Antineoplastic chemotherapy induced pancytopenia; C15.9 Malignant neoplasm of esophagus, unspecified; D70.9 Neutropenia, unspecified; E44.0 Moderate protein-calorie malnutrition; E87.1 Hypo-osmolality and hyponatremia; E86.0 Dehydration; E87.6 Hypokalemia; E83.42 Hypomagnesemia; E83.39 Other disorders of phosphorus metabolism; R50.81 Fever presenting with conditions classified elsewhere; T45.1X5A Adverse effect of antineoplastic and immunosuppressive drugs, initial encounter; D53.9 Nutritional anemia, unspecified; R94.5 Abnormal results of liver function studies; M19.90 Unspecified osteoarthritis, unspecified site; E66.9 Obesity, unspecified
CPT/HCPCS: 36415; 36416; 51701; 71010; 71260; 74177; 80048; 80053; 80069; 80202; 81003; 81015; 83605; 83630; 83690; 83735; 84100; 84132; 85025; 87015; 87040; 87045; 87046; 87077; 87086; 87324; 87328; 87329; 87449; 87899; 93005; 94760; 96361; 96365; 96366; 96367; 96375; A4216; A4353; J0692; J1100; J1642; J2405; J3370; J3475; J3480; J7050; J7506

== ENCOUNTER 2017-05-28 13:39 | Outpatient (CLI) | payer BC ==
--- NOTE | 2017-05-28 19:37 | NM ---
NUCLEAR MEDICINE MUGA SCAN: Radiopharmaceutical: 27.4 mCi Technetium 99M tagged red cells, IV. Indication: Malignant neoplasm of overlapping sites of the esophagus. FINDINGS: Scintigraphic imaging performed of the cardiac chambers. The estimated LVEF is 54.5%. IMPRESSION: Calculated LVEF of 54.5%. POS: [facility]
== END 2017-05-28 13:40 | disposition home or self-care (01) ==
LOC: NM 13:39
PROVIDERS: ATTEND Internal Medicine Hematology & Oncology
DX: C15.8 Malignant neoplasm of overlapping sites of esophagus (principal); N18.2 Chronic kidney disease, stage 2 (mild); D63.1 Anemia in chronic kidney disease; D50.8 Other iron deficiency anemias
CPT/HCPCS: 78472; A9604; J1642

== ENCOUNTER 2017-06-25 13:34 | Outpatient (CLI) | payer BC ==
--- NOTE | 2017-06-25 18:57 | NM ---
MUGA SCAN: Technique: Multiple gated acquisitions of the heart performed after administration of 20 mCi Techneti um tagged red blood cells IV. History: Malignant neoplasm of the esophagus. Follow up ejection fraction. FINDINGS: Left ventricular wall motion appears normal. Left ventricular ejection fraction recorded at 54.9%. Prior left ventricular ejection fraction from a MUGA scan dated 05-28-17 was recorded at 54.5%. POS: [facility]
== END 2017-06-25 13:35 | disposition home or self-care (01) ==
LOC: NM 13:34
PROVIDERS: ATTEND Internal Medicine Hematology & Oncology
DX: C15.8 Malignant neoplasm of overlapping sites of esophagus (principal); D50.8 Other iron deficiency anemias; N18.2 Chronic kidney disease, stage 2 (mild); D63.1 Anemia in chronic kidney disease
CPT/HCPCS: 78472; A9604

== ENCOUNTER 2017-08-13 08:37 | Outpatient (CLI) | payer BC ==
--- NOTE | 2017-08-13 11:52 | NM ---
NUCLEAR MEDICINE MUGA SCAN: CLINICAL HISTORY: Malignant neoplasm of overlapping sites of esophagus. Cardiac function evaluation. FINDINGS: Scintigraphic imaging is performed which reveals appropriate scintigraphic activity overlying the car diac chambers. Gated imaging reveals a calculated LVEF at 54.8%. IMPRESSION: 1. Left ventricular ejection fraction calculated at 54.8%. 2. Comparing to 06/25/17 exam, this is grossly stable. POS: [facility]
== END 2017-08-13 08:38 | disposition home or self-care (01) ==
LOC: NM 08:37
PROVIDERS: ATTEND Internal Medicine Hematology & Oncology
DX: C15.8 Malignant neoplasm of overlapping sites of esophagus (principal)
CPT/HCPCS: 78472; A9604; J1642

== ENCOUNTER 2017-09-06 08:48 | Outpatient (CLI) | payer BC ==
--- NOTE | 2017-09-06 10:52 | CT ---
CT CHEST WITH IV CONTRAST CT ABDOMEN WITH IV CONTRAST: Date: 09/06/17 HISTORY: Esophageal cancer. Patient is currently on chemotherapy. COMPARISON: 05/06/17. FINDINGS: There are multiple new parenchymal lung nodules consistent with metastatic disease. There is patchy c onsolidation in the lower lobes, left greater than right. There is a 3.9 cm mass in the posteromedial aspect of the right middle lobe. Bilateral small pleural effusions, left larger than right, are agai n seen. There is interval development of left axillary lymphadenopathy noted with the larger axillary lymph node measuring 2.1 cm. There is a right paraesophageal 10.0 mm lymph node. Enlarged right retrocrural lymph nodes are again noted. A hiatal hernia is again seen. There is thickening of the wall of the esophagus. The spleen is enlarg ed measuring 16.0 cm in AP dimension. There are changes of cholecystectomy. The pancreas and kidneys are unremarkable. Changes of fatty infiltration of the liver with focal sparing adjacent to the gallbladder fossa are a gain noted. There is a new 1.0 cm low density lesion in the subcapsular aspect of the right lobe of t he liver. The right adrenal mass is enlarged measuring 2.0 cm. A new left adrenal mass is noted measu ring 4.0 cm. A 12.0 mm periaortic lymph node and another 12.0 mm posterior gastric/gastrohepatic lymph node is see n. No free air or free fluid is seen in the abdomen. There are new lytic lesions in the skeleton involving the L3 vertebral body, right iliac crest, and t he posterior aspect of the right iliac bone adjacent to the sacrum. The bone island in the right sacr al ala is again seen. IMPRESSION: Interval worsening since 05/06/17, with lung, liver, adrenal, osseous, and lymph yareli metastatic dis ease. POS: [facility]
[2017-09-06] MEDS ORDERED: Iopamidol 370 76% 100 ML VIAL ONE (11:47)
--- NOTE | 2017-09-06 11:48 | CT ---
CT SOFT TISSUES NECK UTILIZING IV CONTRAST: Date: 09/06/17 INDICATION: History of esophageal cancer, follow-up response to therapy. COMPARISON: Prior exam dated 02/08/17. FINDINGS: The air space opacities involving the right upper lobe and superior segment of both lower lobes has s ignificantly improved. There is mild area of patchy opacity seen within the medial aspect of the righ t upper lobe that remains, image 87, series 2. Scattered emphysema is similar. There is persistent circumferential wall thickening involving the intrathoracic esophagus that is sli ghtly less prominent than seen on the comparison examination. The bulky mediastinal hilar lymphadenopathy has significantly decreased in size from the prior examin ation. The proximal subcarinal lymph node measuring 1.5 cm has significantly reduced in size. The add itional index node within the left supraclavicular region previously measuring 5.4 x 3.5 cm now measu res 2.8 x 1.1 cm. The right-sided supraclavicular node previously measuring 2.6 cm now measures 8.0 m m in size. The remaining visualized aerodigestive tract is normal appearing. The parotid, submandibular, and thy roid glands are normal appearing. The visualized carotid vasculature appears within normal limits. Pa rapharyngeal fat and croze cutter space appears within normal limits. Visualized orbits and intracrania l contents are unremarkable. No acute osseous abnormality is evident. There are small bilateral pleural effusions, left greater than right, that are slightly increased fro m the prior exam. IMPRESSION: 1. Findings consistent with response to therapy. There has been significant reduction in size of the extensive lymphadenopathy involving the neck base and upper mediastinal and hilar regions. There has also been decrease in prominence of the circumferential soft tissue thickening involving the intrath oracic esophagus. 2. There has been improvement in the air space disease involving the superior segments of both lower lobes, as well as the right upper lobe. Small focal area of air space opacity remains within the med ial right upper lobe which may reflect a residual area of pneumonitis. Recommend continued follow-up. 3. Small bilateral pleural effusions, left greater than right, slightly more prominent than seen on the most recent comparison in January. POS: [facility]
== END 2017-09-06 08:49 | disposition home or self-care (01) ==
LOC: CT 08:48
PROVIDERS: ATTEND Internal Medicine Hematology & Oncology
DX: C15.8 Malignant neoplasm of overlapping sites of esophagus (principal); C79.51 Secondary malignant neoplasm of bone; C78.2 Secondary malignant neoplasm of pleura; C78.7 Secondary malignant neoplasm of liver and intrahepatic bile duct; C77.9 Secondary and unspecified malignant neoplasm of lymph node, unspecified; J90 Pleural effusion, not elsewhere classified
CPT/HCPCS: 70491; 71260; 74160

== ENCOUNTER 2017-09-19 10:15 | Outpatient (CLI) | payer BC | END 2017-09-19 10:16 | disposition home or self-care (01) | LOC: BICRAD 10:15 | PROVIDERS: ATTEND Internal Medicine Hematology & Oncology | DX: R06.02 Shortness of breath (principal); C15.8 Malignant neoplasm of overlapping sites of esophagus; N18.2 Chronic kidney disease, stage 2 (mild); D50.8 Other iron deficiency anemias; J81.1 Chronic pulmonary edema; R91.8 Other nonspecific abnormal finding of lung field | CPT/HCPCS: 71046 ==

== ENCOUNTER 2017-10-03 13:05 | Outpatient (CLI) | payer BC ==
--- NOTE | 2017-10-03 15:46 | RAD ---
PA AND LATERAL CHEST: HISTORY: A 46-year-old female with shortness of breath and known esophageal cancer. 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 FINDINGS: Right subclavian catheter and injection port. There are extensive bilateral new interstitial and maximiliano eolar nodular parenchymal changes in the lungs bilaterally, particularly the perihilar regions and th e infrahilar regions, with some nodularity, moreso on the right side. There is evidence for a small hiatal hernia. Postop cholecystectomy changes are noted. IMPRESSION: Interval development of new interstitial and alveolar nodular parenchymal changes bilaterally, partic ularly in the perihilar and low and mid lung zone regions, greater on the right side. These are new when compared to the 09/06/2017 study. Given this significant change, I favor this being either asym metric edema versus bilateral pneumonia or pneumonitis over this being new pulmonary metastasis. Findings were discussed with Dr. Moya by phone at 2:14 p.m. [facility]
== END 2017-10-03 13:06 | disposition home or self-care (01) ==
LOC: ULT 13:05
PROVIDERS: ATTEND Internal Medicine Hematology & Oncology
DX: Z51.11 Encounter for antineoplastic chemotherapy (principal); C15.8 Malignant neoplasm of overlapping sites of esophagus; R06.02 Shortness of breath
CPT/HCPCS: 71046; 77412; 93306

== ENCOUNTER 2017-10-04 16:57 | Inpatient (IN) | payer BC ==
[2017-10-04 17:49] VITALS: BMI 24.0
[2017-10-04] MEDS ORDERED: Albuterol Sulfate 2.5 mg/3 ml Neb NEB PRN (18:03)
[2017-10-04] MEDS ORDERED: Acetaminophen 325 MG TAB PO PRN (18:03)
[2017-10-04] MEDS: Sodium Chloride 0.9% 1,000 ML IV SCH (18:18)
[2017-10-04 18:49] LABS: #Lymphocytes 0.3 thou/uL (1.20-3.40); #Monocytes 0.7 thou/uL (0.11-0.59); #Neutrophils 9.2 thou/uL (1.40-6.50); %Basophils 0.3 % (0.0-1.0); %Eosinophils 0.4 % (0.0-10.0); %Lymphocytes 2.6 % (21.0-51.0); %Monocytes 6.6 % (0.0-10.0); %Neutrophils 90.1 % (42.0-75.0); Hemoglobin 11.9 g/dL (12.0-16.0); Mean Corpuscular HGB CONC 31.3 g/dL (32.0-36.0); Mean Corpuscular Hemoglobin 24.7 pg (27.0-31.0); Mean Corpuscular Volume 78.9 fl (81.0-99.0); Mean Platelet Volume 10.1 fL (7.4-10.4); Platelet Count 235 thou/uL (130-400); RBC Distribution Width 17.1 % (11.5-14.5); Red Blood Cell (RBC) Count 4.83 mill/uL (4.20-5.40); White Blood Cell (WBC) Count 10.2 thou/uL (4.8-10.8)
[2017-10-04] MEDS ORDERED: Lorazepam 2 MG/ML VIAL SLOW IVP PRN (18:58)
[2017-10-04] MEDS ORDERED: guaiFENesin/Codeine Phosphate 200 mg/20 mg 10 ml UD Cup PO PRN (18:59)
[2017-10-04 19:02] LABS: Anion Gap 16 mmol/L (10-20); BUN (Urea Nitrogen) 19 mg/dL (7.0-18.7); Calc. Creatinine Clearance 122 mL/min (70-130); Calcium 8.7 mg/dL (7.8-10.44); Carbon Dioxide 23 mmol/L (22-29); Chloride 96 mmol/L (98-107); Estimated GFR-MDRD Greater than 90; Glucose 126 mg/dL (70-105); Potassium 4.5 mmol/L (3.5-5.1); Sodium 130 mmol/L (136-145)
[2017-10-04] MEDS: Vancomycin HCl 1 GM in Premix Bag 1 BAG IVPB SCH (19:45)
[2017-10-04] MEDS ORDERED: Acetaminophen/Codeine 30-300mg Tablet PO PRN (20:07)
[2017-10-04] MEDS: guaiFENesin ER 600 MG TAB PO SCH (20:07)
[2017-10-04] MEDS ORDERED: Calcium Carbonate 500 MG ChewTAB PO PRN (20:11)
[2017-10-04] MEDS ORDERED: Senokot 8.6 MG TAB PO PRN (20:11)
[2017-10-04] MEDS ORDERED: Bisacodyl 5 MG TAB PO PRN (20:11)
[2017-10-04] MEDS ORDERED: Ondansetron HCl/PF 4 MG/2 ML Vial IVP PRN (20:11)
[2017-10-04] MEDS ORDERED: Mag-Al 1200 mg/1200 mg/30 ML UDCUP PO PRN (20:11)
[2017-10-04] MEDS ORDERED: Milk Of Magnesia 30 ML UDCUP PO PRN (20:11)
[2017-10-04] MEDS ORDERED: cloNIDine 0.1 MG TAB PO PRN (20:13)
[2017-10-04] MEDS: Morphine ER 30 MG TAB PO SCH (20:48)
[2017-10-04] MEDS: Meropenem 1 GM in Sterile Water 20 ML SLOW IVP SCH (21:26)
--- NOTE | 2017-10-04 21:32 | HP ---
DATE OF ADMISSION: 10/04/2017 CHIEF COMPLAINT: Shortness of breath for 2 or 3 weeks. HISTORY OF PRESENTING ILLNESS: Ms. Cummings is a very pleasant 46-year-old female, who has known stage IV esophageal cancer, who presented as a direct admit from Cardiology office today. History is main ly obtained by the patient herself and electronic medical records have been reviewed. According to Ms. Cummings, she has been off of chemotherapy since 06/2017. She has been diagnosed with lung mets even before then. She has been feeling fine since June up until 3 weeks ago when she started to have more weakness, tiredness and worsening shortness of breath. She has known metastases to lung, liver, adrenal bones and lymph nodes. She has finished chemo and radiation in the past, bu t also was restarted on chemotherapy and radiation just earlier this month. In fact, she has finishe d her first round of chemotherapy just yesterday. Because of the worsening shortness of breath for 3 weeks, she has seen her oncologist, Dr. Moya and was referred to Cardiology today and actually un derwent an echocardiogram. The echocardiogram was unremarkable except for mild decrease in the eject ion fraction at 45% to 50%. Because of significant shortness of breath, a chest x-ray was ordered, w hich was concerning for possible bilateral pneumonitis versus pneumonia versus edema with multiple pe rihilar and alveolar interstitial nodular parenchymal changes. Because of all of this, she was sent to the hospital as a direct admit from apartment rental clerk, Dr. Cat's office. At the time of my exam, she is on an Oncology unit. She has been having difficulty because of persis tent cough and despite adequate oxygen saturation on room air, she is very tachypneic. She does report chronic cough without any significant change in the nature. She is bringing up scant clear phlegm. She denies any chest pain. She does take a diuretic for pleural effusion. She does report that in the past she has to have a thoracentesis done. She denies any orthopnea or PND. She denies any fever or chills. Her main complaint is just weakness, tiredness and worsening shortness o f breath. Today, her CBC and serum chemistries are rather unremarkable except for neutrophil counts at 90%. Justus bustamante is now being admitted to medical floor for possible postobstructive pneumonia as a cause of acute r espiratory distress. She reports that she follows up with Pulmonary, [facility]. PAST MEDICAL HISTORY: 1. Stage IV esophageal cancer. 2. Arthritis. 3. Anemia. 4. Acid reflux. 5. History of pancreatitis in 2013, requiring endoscopic retrograde cholangiopancreatography with pa pillotomy. 6. Fatty liver. PAST SURGICAL HISTORY: 1. Left knee replacement. 2. Cholecystectomy. 3. ERCP. 4. Multiple knee surgeries. 5. MediPort placement. ALLERGIES: The patient is allergic to EGGS and CHICKEN PRODUCTS, but no known drug allergies. FAMILY HISTORY: Significant for liver cancer in her grandfather who was a smoker. Stroke and brain tumor in the grandmother. SOCIAL HISTORY: She has no history of drug, tobacco or alcohol abuse. Lives at home with family. HOME MEDICATIONS: Lansoprazole 30 mg p.o. b.i.d., Lasix 20 mg daily, dexamethasone 4 mg p.o. b.i.d., MS Contin 30 mg p.o. b.i.d., lorazepam 1 tablet p.o. q.i.d. p.r.n., potassium chloride 20 mEq p.o. b .i.d. REVIEW OF SYSTEMS: The following complete review of systems was negative, unless otherwise mentioned in the HPI or below: Constitutional: Weight loss or gain, ability to conduct usual activities. Skin: Rash, itching. Eyes: Double vision, pain. ENT/Mouth: Nose bleeding, neck stiffness, pain, tenderness. Cardiovascular: Palpitations, dyspnea on exertion, orthopnea. Respiratory: Shortness of breath, wheezing, cough, hemoptysis, fever or night sweats. Gastrointestinal: Poor appetite, abdominal pain, heartburn, nausea, vomiting, constipation, or diarr hea. Genitourinary: Urgency, frequency, dysuria, nocturia. Musculoskeletal: Pain, swelling. Neurologic/Psychiatric: Anxiety, depression. Allergy/Immunologic: Skin rash, bleeding tendency. It is negative except for those mentioned in the history and physical. The patient is feeling a william le bit better now after some breathing treatment. LABORATORY DATA: CBC shows WBCs 10.2, hemoglobin 11.9, platelet count 235, neutrophils 90%. Serum c hemistries: Sodium 130, potassium 4.5, chloride 97, bicarbonate 23, BUN 19, creatinine 0.59, blood s ugar 126, calcium 8.7. Chest x-ray done yesterday by my review shows multiple nodular opacities in t he lung parenchyma interstitium and alveolar areas. Possibility of bilateral pneumonia or edema aliyah ot be ruled out. Echocardiogram done today shows EF of 40% to 45% with normal right ventricular size and function. PHYSICAL EXAMINATION: VITAL SIGNS: Upon presentation, temperature 97.5, pulse of 79, respirations 44, saturating 96% on ro om air, blood pressure 162/89. GENERAL: No acute distress, does appear pale and tired, but awake, alert, oriented x3, able to discu ss most of the care, but gets easily winded. HEENT: Mucous membrane is moist and pink. No oropharyngeal exudate or erythema. Head is normocepha lic, atraumatic. Pupils are equal, reactive to light and accommodation. Extraocular movement intact . NECK: Supple without any lymphadenopathy, JVD or bruit. CHEST: Showing reduced breath sounds bilaterally without any significant wheezing or rales. Rate an d rhythm is regular without any murmur, rubs or gallops. ABDOMEN: Soft, nontender, nondistended with positive bowel sounds. EXTREMITIES: Free of any cyanosis, clubbing, or edema. NEUROLOGIC: Nonfocal. SKIN: Free of any rashes or bruises. Feels warm and dry to touch. PSYCHIATRIC: Normal affect. IMPRESSION AND PLAN: 1. Dyspnea. This is most likely secondary to lung metastasis with development of a possible post-ob structive pneumonia now. The patient will be started on broad spectrum IV antibiotics as well as sup portive care with IV steroids, nebulizers, Mucinex, etc. We will add Dulera as well. Incentive spir ometry. We will request consultation from Pulmonary Medicine for further evaluation. The patient goncalves s had radiation done just few days ago. For this reason, we are not ordering a CT scan for now. We will defer this to the Pulmonary Medicine team if she really needs a CT scan done. Her last chest CT was done in 08/2017, which showed interval worsening since 04/2017. Continue gentle IV fluid hydrat ion and monitor labs on a daily basis and symptomatology. She is at high risk for developing neutrop enia given recent chemotherapy yesterday. We will also obtain blood culture and urine culture for co mpletion of infectious workup. Also, consult her primary oncologist, Dr. Moya at this time. 2. Metastatic stage IV esophageal cancer. Continue treatment outpatient as per her Oncology team. Continue supportive care. 3. Pain management. We will continue with her home dose of MS Contin 30 mg p.o. b.i.d. along with T ylenol No. 3. Add [place] at a small dose for breakthrough pain. 4. Add deep venous thrombosis and gastrointestinal prophylaxis. 5. We will consult dietitian given the fact that the patient has esophageal cancer for nutritional a ssessment. 6. Anemia of chronic disease. Her hemoglobin is stable and actually has improved in comparison to . Continue to monitor. 7. Code status: FULL CODE. DISPOSITION: Ms. Cummings is currently being admitted for worsening dyspnea, most likely secondary to bilateral pneumonia. Further management will depend upon her clinical course. Estimated length of s tera at this time is at least 2-3 midnights.
[2017-10-05 00:47] LABS: Bilirubin Negative (Negative); Blood, Urine Negative (Negative); Clarity CLEAR (Clear); Glucose, Urine (Dipstick) Negative (Negative); Leukocyte Negative (Negative); Nitrite Negative (Negative); Protein, Urine (Dipstick) Trace mg/dL (Neg-Trace); Specific Gravity, Urine 1.026 (1.002-1.036); pH, Urine 6.5 (5.0-9.0)
[2017-10-05] MEDS: Meropenem 1 GM in Sterile Water 20 ML SLOW IVP SCH ×3 (05:14→22:45)
[2017-10-05 06:05] LABS: ALT (SGPT) 32 U/L (8-55); AST (SGOT) 41 U/L (5-34); Albumin 3.4 g/dL (3.5-5.0); Alkaline Phosphatase 118 U/L (40-150); Anion Gap 13 mmol/L (10-20); BUN (Urea Nitrogen) 15 mg/dL (7.0-18.7); Bilirubin, Total 0.7 mg/dL (0.2-1.2); Calc. Creatinine Clearance 120 mL/min (70-130); Calcium 8.5 mg/dL (7.8-10.44); Carbon Dioxide 24 mmol/L (22-29); Chloride 97 mmol/L (98-107); Estimated GFR-MDRD Greater than 90; Globulin 2.8 g/dL (2.4-3.5); Glucose 163 mg/dL (70-105); Protein, Total 6.2 g/dL (6.0-8.3); Sodium 129 mmol/L (136-145)
[2017-10-05] MEDS: Enoxaparin Sodium 40 MG/0.4 ML SYRINGE SC SCH (08:19)
[2017-10-05] MEDS: guaiFENesin ER 600 MG TAB PO SCH ×2 (08:19→20:59)
[2017-10-05] MEDS: Furosemide 20 MG TAB PO SCH (08:19)
[2017-10-05] MEDS: Morphine ER 30 MG TAB PO SCH ×2 (08:20→20:58)
[2017-10-05] MEDS: Vancomycin HCl 1 GM in Premix Bag 1 BAG IVPB SCH ×2 (08:23→20:58)
[2017-10-05] MEDS: Mometasone/Formoterol 120 PUFF INHALER INH SCH ×2 (09:05→18:50)
--- NOTE | 2017-10-05 10:27 | CON ---
DATE OF CONSULTATION: 10/05/2017 Total time spent in performing consultation is 70 minutes. Of this time, greater than 50 minutes was spent face to face with the patient and/or on the patient's floor. CONSULTING PHYSICIAN: Dr. Vega. REASON FOR CONSULTATION: Shortness of breath with abnormal chest x-ray. HISTORY OF PRESENT ILLNESS: The patient is a 46-year-old female who has stage IV esophageal cancer, which was diagnosed last year. She has seen my partner, Dr. Bryant Hendricks in the past. She had bee n doing well up until about 3 weeks ago when she begun having increasing shortness of breath. At honorio t time, she underwent a CT of the chest which showed metastasis of tumor to her chest, liver, adrenal s, and bones. She restarted chemo last week. She saw Dr. Moya in the office earlier in the week and was felt to be doing poorly. She referred her to Cardiology for an evaluation because it was fel t that the chemo could be affecting her EF. She had a mild decrease in her EF to 45%-50%. An x-ray obtained yesterday showed worsening of bilateral infiltrates. She did not undergo repeat CT imaging and did not have a CT pulmonary angiogram. She has had a dry cough, but no fever. PAST MEDICAL HISTORY: 1. Esophageal cancer which is stage 4. 2. Arthritis. 3. Anemia. 4. Gastroesophageal reflux. 5. Pancreatitis. 6. Fatty liver. PAST SURGICAL HISTORY: 1. Knee replacement. 2. Cholecystectomy. 3. ERCP 4. MediPort placement. ALLERGIES: EGGS and CHICKEN PRODUCTS. FAMILY MEDICAL HISTORY: Remarkable for liver cancer in her grandfather, stroke in grandmother. SOCIAL HISTORY: Never a smoker. Does not consume alcohol, does not use illicit drugs. MEDICATIONS PRIOR TO ADMISSION: Lansoprazole, Lasix, dexamethasone, MS Contin, lorazepam, potassium. REVIEW OF SYSTEMS: Twelve point review of systems otherwise negative. PHYSICAL EXAMINATION: VITAL SIGNS: Temperature 97.8, pulse 106, respirations 24, O2 sat 96%, blood pressure 135/79. HEENT: Mild alopecia. NECK: No adenopathy or JVD. LUNGS: She has inspiratory crackles throughout her lungs best heard posteriorly. CARDIOVASCULAR: S1, S2 regular. ABDOMEN: Soft, nontender, nondistended. EXTREMITIES: No clubbing, cyanosis, or edema. NEUROLOGIC: Grossly intact throughout. SKIN: Shows no obvious lesions. LABORATORY DATA AND IMAGING DATA: Sodium 129, potassium 5, chloride 97, CO2 24, BUN 15, creatinine 0 .6, glucose 163. White blood cell count 10.2, hematocrit 38.1, platelet count 235. Urinalysis is ne gative. Chest x-ray was reviewed by me personally. The findings are as noted in the radiology repor t. ASSESSMENT: 1. Metastatic esophageal cancer. 2. Bilateral pulmonary infiltrative changes suggestive of metastasis. 3. High risk for pulmonary emboli. PLAN: CT pulmonary angiogram to look for pulmonary emboli. Additionally, we will do plain CT cuts t o compare the current imaging to that obtained in August. Differential diagnosis includes pneumoni a, pulmonary emboli, metastatic disease, and hypersensitivity to a chemotherapeutic agent. I will co ntinue current antibiotic steroids and breathing treatments, continue low flow oxygen. I will follow with you.
[2017-10-05] MEDS ORDERED: Iopamidol 370 76% 100 ML VIAL ONE (11:32)
--- NOTE | 2017-10-05 14:39 | CT ---
CT ANGIOGRAM OF CHEST: Date: 10/05/17 COMPARISON: 03/10/17. HISTORY: Cancer. Cough. Shortness of breath x3 weeks. Bone, lung, and adrenal metastasis. Primary cancer invol ving the esophagus. TECHNIQUE: CT angiogram of the chest is performed in the axial plane. Coronal and bilateral oblique three-dimens ional reformatted images are submitted for interpretation. FINDINGS: There is stranding of the anterior left and right mediastinal fat suggesting mediastinal involvement of tumor. There is circumferential thickening of the thoracic esophagus. Heart size is within normal limits. No pericardial fluid. There is a moderate hiatal hernia. The thoracic aorta and upper abdomin al aorta have an overall normal caliber. No periaortic fat stranding. Enlarged left axillary lymph nodes with central hypoattenuation suggesting necrosis. Oil Expeller e nlarged left axillary lymph node measures 3.3 x 3.0 cm. There are enlarged gastroesophageal lymph nodes, incompletely evaluated. Enlarged right retrocrural l ymph node measuring 1.1 x 1.7 cm. There is fullness of both adrenal glands, suggesting metastasis. Hypoattenuation of the liver, also s uggesting metastasis involving the left hepatic lobe and anterior segment of the right hepatic lobe. Hepatic lesions are incompletely evaluated. There are small bilateral pleural effusions. There is extensive consolidation with air bronchogram in the left lower lobe and right perihilar region suggesting multifocal infection or atelectasis. Under lying malignant process cannot be excluded. Additional nodules are noted throughout the right upper l obe, right lower lobe, and superior segment of left lower lobe. Multifocal metastasis favored. There is a small and a trace right-sided pleural effusion. No pneumothorax. Trachea and central bronchi are patent. Adequate contrast opacification of the pulmonary arterial system to the level of the segmental arteri es. No filling defects to imply thromboembolism. No definite lytic or blastic lesions. IMPRESSION: 1. No evidence of pulmonary artery embolism to the level of the segmental arteries. 2. Esophageal mucosal thickening, compatible with history of primary esophageal cancer. 3. Multifocal enlarged lymph nodes as described above. 4. Extensive opacification of the lung parenchyma has developed since April 2017. Note, these find ings were present in February 2017. Given resolution and recurrence, pneumonia, atelectasis is favored. Malignancy involving the lung parenchyma cannot be excluded. POS: JANINE
--- NOTE | 2017-10-05 17:23 | CON ---
DATE OF CONSULTATION: 10/05/2017 REASON FOR CONSULTATION: Metastatic esophageal adenocarcinoma. HISTORY OF PRESENT ILLNESS: Ms. Cummings is a 46-year-old female who was diagnosed with stage IV esoph ageal cancer in 02/2017. She was treated with FOLFOX and Herceptin. She continued Herceptin until 09/2017 when her ejection fraction dropped to around 40%. In 08/2017, she had progression on PET scan . She had bone mets and esophageal strictures. She completed radiation this past Sunday to her e sophagus and mid lumbar spine. She received one dose of Taxotere on Tuesday 10/03. An echo was do ne this week, which showed again decreased ejection fraction, so she saw Dr. Cat yesterday for further evaluation. The patient has had significant shortness of breath over the last 2-3 weeks. Sh dinana was treated with steroids and diuretic and did improve. She was direct admitted from Dr. Cat 's office for bilateral infiltrates. Dr. Michael was consulted. The patient has been started on ant ibiotics. She continues to complain of shortness of breath particularly with any exertion. She nasir es any chest pain, no abdominal pain, no headaches, no dysphagia, no recent fever. PAST MEDICAL HISTORY: 1. Stage IV metastatic esophageal cancer. 2. Iron deficiency anemia. 3. Arthritis. 4. Acid reflux. PAST SURGICAL HISTORY: 1. MediPort placement. 2. Knee surgery. 3. Cholecystectomy. ALLERGIES: No known drug allergies. HOME MEDICATIONS: 1. Tylenol #3 p.r.n. 2. Dexamethasone 4 mg b.i.d. 3. Lasix 20 mg daily. 4. Lansoprazole 30 mg b.i.d. 5. Lorazepam 1 mg q.i.d. 6. Morphine extended release 30 mg b.i.d. 7. Potassium chloride 20 mEq b.i.d. FAMILY HISTORY: Her dad had liver cancer. SOCIAL HISTORY: She is single. No children, lives alone. No alcohol, tobacco or illicit drug use. REVIEW OF SYSTEMS: Twelve-point review of systems is negative except for noted in HPI. PHYSICAL EXAMINATION: VITAL SIGNS: Temperature is 97.8, pulse is 100, respiratory 24, blood pressure is 136/76. She is 94 % on room air. GENERAL: A well-developed, well-nourished female in no acute distress. HEENT: Normocephalic and atraumatic. Pupils are equal and reactive to light. NECK: Supple. CARDIOVASCULAR: Regular rate and rhythm. She is tachycardic. LUNGS: Positive for crackles. ABDOMEN: Soft and nontender. Bowel sounds are positive. EXTREMITIES: No clubbing, cyanosis or edema. SKIN: No rash. HEMATOLOGIC: No petechia or purpura. NEUROLOGIC: Nonfocal. PSYCHIATRIC: The patient is alert and oriented and appropriate. PERTINENT LABORATORY AND X-RAYS: WBCs are 10.2, hemoglobin 11.9, hematocrit 38.1, platelet count is 235,000, 90% neutrophils and 3% lymphocytes. Sodium is 129, potassium 5.0, chloride 97, CO2 is 24, B UN is 15, creatinine 0.60, calcium 8.5, total bilirubin is 0.7, AST is 41, ALT 32 and alkaline phosph atase 118. Serum total protein 6.2, albumin 3.4 and globulin 2.8. Urine is negative for bacteria. A CT angio pending. ASSESSMENT: 1. Metastatic esophageal cancer, status post radiation to the esophagus and lumbar spine completed 0 10/03 with cycle 1 Taxotere on 10/03/2017. 2. Progressive shortness of breath secondary to disease progression. 3. Recent decrease in ejection fraction secondary to Herceptin. DISCUSSIONS: The case was discussed with Dr. Moya. Dr. Michael has seen the patient and started antibiotics and ordered some CT scans appreciate his assistance. We will provide supportive care and consider Palliative Care consult. Thank you for the consult.
[2017-10-05] MEDS: Sodium Chloride 0.9% 1,000 ML IV SCH (17:47)
--- NOTE | 2017-10-05 18:04 | PDOC.PN ---
- Subjective Encounter Start Date: 10/05/17 Encounter Start Time: 18:02 Subjective: seen and examined feeling better - Objective Vital Signs & Weight: Vital Signs (12 hours) Temp Pulse Resp BP Pulse Ox 10/05/17 15:50 97.8 F 105 H 22 H 136/71 96 10/05/17 13:42 100 24 H 10/05/17 11:26 98.1 F 91 24 H 136/76 94 L 10/05/17 09:05 106 H 20 96 10/05/17 08:45 106 H 24 H 96 10/05/17 08:00 97.8 F 75 20 135/79 95 Weight Admit Weight 140 lb Weight 140 lb I&O: 10/04/17 10/05/17 10/06/17 06:59 06:59 06:59 Intake Total 480 Balance 480 Result Diagrams: 10/04/17 18:19 10/05/17 05:42 Phys Exam - Physical Examination Constitutional: NAD HEENT: PERRLA, moist MMs, sclera anicteric, TM's clear Neck: no nodes, no JVD, supple, full ROM Respiratory: no rales, wheezing present, clear to auscultation bilateral Cardiovascular: RRR, no significant murmur, no rub Gastrointestinal: soft, non-tender, no distention, positive bowel sounds Dx/Plan (1) Hyponatremia Code(s): E87.1 - HYPO-OSMOLALITY AND HYPONATREMIA Status: Acute (2) Respiratory distress Code(s): R06.03 - ACUTE RESPIRATORY DISTRESS Status: Acute (3) Esophageal cancer Status: Chronic - Plan cont current plan of care, continue antibiotics, PT/OT, respiratory therapy Appreciate pulmonary input -: Appreciate Oncology input * .
[2017-10-06] MEDS: Meropenem 1 GM in Sterile Water 20 ML SLOW IVP SCH ×3 (05:00→21:02)
[2017-10-06] MEDS: HYDROcodone/Acetaminophen 5/325 mg Tablet PO PRN ×2 (05:09→22:24)
[2017-10-06 05:18] LABS: Hemoglobin 9.6 g/dL (12.0-16.0); Platelet Count 101 thou/uL (130-400)
[2017-10-06 05:27] LABS: Calc. Creatinine Clearance 124 mL/min (70-130); Estimated GFR-MDRD Greater than 90
[2017-10-06] MEDS ORDERED: Loratadine 10 MG TAB PO PRN (07:49)
[2017-10-06] MEDS ORDERED: Chloraseptic Spray 180 ml Bottle PO PRN (07:49)
[2017-10-06] MEDS ORDERED: Loperamide HCl 2 MG CAP PO PRN (07:49)
[2017-10-06] MEDS ORDERED: Ondansetron ODT 4 MG TAB PO PRN (07:49)
[2017-10-06] MEDS ORDERED: hydrALAZINE 20 MG/ML VIAL SLOW IVP PRN (07:49)
[2017-10-06] MEDS ORDERED: Artificial Tears 18 DROP/0.9 ML EA EYE PRN (07:49)
[2017-10-06] MEDS ORDERED: Eucerin (Mineral Oil/Petrolatum,White) 30 gm Jar TOP PRN (07:49)
[2017-10-06] MEDS ORDERED: Zolpidem Tartrate 5 MG TAB PO PRN (07:49)
[2017-10-06] MEDS ORDERED: Sodium Chloride 0.65% Nasal 44 ML BOT EA NARE PRN (07:49)
[2017-10-06] MEDS: Enoxaparin Sodium 40 MG/0.4 ML SYRINGE SC SCH (08:16)
[2017-10-06] MEDS: Morphine ER 30 MG TAB PO SCH ×2 (08:17→20:59)
[2017-10-06] MEDS: guaiFENesin ER 600 MG TAB PO SCH ×3 (08:17→21:00)
[2017-10-06] MEDS: Furosemide 20 MG TAB PO SCH (08:17)
[2017-10-06] MEDS: Mometasone/Formoterol 120 PUFF INHALER INH SCH ×2 (08:36→19:26)
[2017-10-06 08:42] LABS: Vancomycin, Trough 7.9 ug/mL
[2017-10-06] MEDS: Vancomycin HCl 1 GM in Premix Bag 1 BAG IVPB SCH ×2 (09:59→18:20)
[2017-10-06] MEDS ORDERED: VANCOMYCIN IVPB PRN (10:33)
--- NOTE | 2017-10-06 10:37 | PDOC.PN ---
- Subjective Encounter Start Date: 10/06/17 Encounter Start Time: 07:10 Patient seen and examined. No overnight events still has dyspnea on exertion, no fever - Objective MAR Reviewed: Yes Vital Signs & Weight: Vital Signs (12 hours) Temp Pulse Resp BP Pulse Ox 10/06/17 08:36 102 H 20 97 10/06/17 08:27 97 10/06/17 08:26 102 H 20 97 10/06/17 07:50 98.1 F 96 18 136/78 97 10/06/17 01:09 95 10/06/17 00:37 103 H 22 H 95 Weight Admit Weight 140 lb Weight 140 lb I&O: 10/05/17 10/06/17 10/07/17 06:59 06:59 06:59 Intake Total 480 2500 Balance 480 2500 Result Diagrams: 10/06/17 05:08 10/06/17 05:08 Phys Exam - Physical Examination Constitutional: NAD HEENT: PERRLA, moist MMs, sclera anicteric Neck: no JVD, supple Respiratory: no wheezing, no rales, no rhonchi reduced air entry Cardiovascular: RRR, no significant murmur, no rub Gastrointestinal: soft, non-tender, no distention, positive bowel sounds Musculoskeletal: no edema, pulses present Neurological: non-focal, normal sensation, moves all 4 limbs Psychiatric: normal affect, A&O x 3 Skin: no rash, normal turgor Dx/Plan (1) Hyponatremia Code(s): E87.1 - HYPO-OSMOLALITY AND HYPONATREMIA Status: Acute Comment: due to siadh (2) Respiratory distress Code(s): R06.03 - ACUTE RESPIRATORY DISTRESS Status: Acute Comment: due to systolic dysfunction, pneumonia, mets (3) Lymphadenopathy Code(s): R59.1 - GENERALIZED ENLARGED LYMPH NODES Status: Acute Comment: due to mets (4) Esophageal cancer Status: Chronic Comment: s/p chemo and radation therapy (5) GERD (gastroesophageal reflux disease) Code(s): K21.9 - GASTRO-ESOPHAGEAL REFLUX DISEASE WITHOUT ESOPHAGITIS Status: Chronic Qualifiers: Esophagitis presence: without esophagitis Qualified Code(s): K21.9 - Gastro -esophageal reflux disease without esophagitis (6) Hiatal hernia Code(s): K44.9 - DIAPHRAGMATIC HERNIA WITHOUT OBSTRUCTION OR GANGRENE Status: Chronic (7) Hypochromic microcytic anemia Code(s): D50.9 - IRON DEFICIENCY ANEMIA, UNSPECIFIED Status: Chronic (8) 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 Review of Systems - Review of Systems Constitutional: negative: fever, chills, sweats, weakness, malaise, other Eyes: negative: Pain, Vision Change, Conjunctivae Inflammation, Eyelid Inflammation, Redness, Other ENT: negative: Ear Pain, Ear Discharge, Nose Pain, Nose Discharge, Nose Congestion, Mouth Pain, Mouth Swelling, Throat Pain, Throat Swelling, Other Respiratory: SOB with Excertion. negative: Cough, Dry, Shortness of Breath, Hemoptysis, Pleuritic Pain, Sputum, Wheezing Cardiovascular: negative: chest pain, palpitations, orthopnea, paroxysmal nocturnal dyspnea, edema, light headedness, other Gastrointestinal: negative: Nausea, Vomiting, Abdominal Pain, Diarrhea, Constipation, Melena, Hematochezia, Other Genitourinary: negative: Dysuria, Frequency, Incontinence, Hematuria, Retention , Other Musculoskeletal: negative: Neck Pain, Shoulder Pain, Arm Pain, Back Pain, Hand Pain, Leg Pain, Foot Pain, Other Skin: negative: Rash, Lesions, Juan, Bruising, Other Neurological: negative: Weakness, Numbness, Incoordination, Change in Speech, Confusion, Seizures, Other - Medications/Allergies Allergies/Adverse Reactions: Allergies Allergy/AdvReac Type Severity Reaction Status Date / Time chicken derived Allergy Verified 10/04/17 17:53 egg AdvReac Mild Verified 10/05/17 14:34 Medications: Current Medications Acetaminophen (Tylenol) 650 mg PO Q4H PRN PRN Reason: Headache/Fever or Pain Acetaminophen/Codeine Phosphate (Tylenol #3) 1 tab PO Q6HR PRN PRN Reason: Pain Last Admin: 10/04/17 22:47 Dose: 1 tab Hydrocodone Bitart/Acetaminophen ([place] 5/325) 1 tab PO Q4H PRN PRN Reason: Moderate Pain (4-6) Last Admin: 10/06/17 05:09 Dose: 1 tab Al Hydroxide/Mg Hydroxide (Maalox) 30 ml PO Q6H PRN PRN Reason: Heartburn or Indigestion Albuterol Sulfate (Ventolin) 2.5 mg NEB Q2H PRN PRN Reason: SOB &/or Wheezing Albuterol/Ipratropium (Duoneb) 3 ml NEB Q4H PRN PRN Reason: SOB &/or Wheezing Last Admin: 10/05/17 05:02 Dose: 3 ml Albuterol/Ipratropium (Duoneb) 3 ml NEB [id number] [facility] Last Admin: 10/06/17 08:26 Dose: 3 ml Artificial Tears (Tears Naturale) 0 drop EA EYE PRN PRN PRN Reason: Dry Eyes Bisacodyl (Dulcolax) 10 mg PO DAILYPRN PRN PRN Reason: Constipation Last Admin: 10/06/17 05:11 Dose: 10 mg Calcium Carbonate (Tums) 1,000 mg PO Q4H PRN PRN Reason: Heartburn or Indigestion Carvedilol (Coreg) 3.125 mg PO BID [facility] Clonidine (Catapres) 0.1 mg PO Q4H PRN PRN Reason: SBP>160 Enoxaparin Sodium (Lovenox) 40 mg SC 0900 [facility] Last Admin: 10/06/17 08:16 Dose: 40 mg Furosemide (Lasix) 20 mg PO QAM [facility] Last Admin: 10/06/17 08:17 Dose: 20 mg Guaifenesin (Mucinex) 600 mg PO TID [facility] Guaifenesin/Codeine Phosphate (Robitussin Ac) 10 ml PO Q6H PRN PRN Reason: Cough Hydralazine HCl (Apresoline) 10 mg SLOW IVP Q4H PRN PRN Reason: Systolic BP > 180 Meropenem 1 gm/ Sterile Water 20 mls @ 240 mls/hr SLOW IVP Q8HR [facility] Last Admin: 10/06/17 05:00 Dose: 20 mls Vancomycin HCl 1 gm/ Device 200 mls @ 200 mls/hr IVPB Q12HR [facility] Last Admin: 10/06/17 09:59 Dose: 200 mls Lisinopril (Zestril) 2.5 mg PO DAILY [facility] Loperamide HCl (Imodium) 2 mg PO PRN PRN PRN Reason: Diarrhea/Loose Stools Loratadine (Claritin) 10 mg PO DAILYPRN PRN PRN Reason: Sinus Symptoms Lorazepam (Ativan) 1 mg SLOW IVP Q4H PRN PRN Reason: Anxiety/Agitation Magnesium Hydroxide (Milk Of Magnesium) 30 ml PO DAILYPRN PRN PRN Reason: Constipation Methylprednisolone Sodium Succinate (Solu-Medrol) 20 mg IVP Q6HR [facility] Mineral Oil/White Petrolatum (Eucerin Cream) 0 gm TOP BIDPRN PRN PRN Reason: Dry Skin Miscellaneous Medication (Pharmacy To Dose) 1 each IVPB ONE PRN PRN Reason: Pharmacy to dose Mometasone Furoate/Formoterol Fumar (Dulera 200 Mcg/5 Mcg Inhaler) 2 puff INH BID-RT [facility] Last Admin: 10/06/17 08:36 Dose: 2 puff Morphine Sulfate (Ms Contin) 30 mg PO BID [facility] Last Admin: 10/06/17 08:17 Dose: 30 mg Ondansetron HCl (Zofran) 4 mg IVP Q6H PRN PRN Reason: Nausea/Vomiting Ondansetron HCl (Zofran Odt) 4 mg PO Q6H PRN PRN Reason: Nausea/Vomiting Pantoprazole Sodium (Protonix) 40 mg PO BID [facility] Last Admin: 10/06/17 08:18 Dose: 40 mg Phenol (Chloraseptic [place] 180 Ml Bot) 0 ml PO PRN PRN PRN Reason: Sore Throat Potassium Chloride (Klor-Con) 20 meq PO BID [facility] Last Admin: 10/06/17 08:18 Dose: 20 meq Senna (Senokot) 2 tab PO HSPRN PRN PRN Reason: Constipation Sodium Chloride (Flush - Normal Saline) 10 ml IVF Q12HR [facility] Last Admin: 10/06/17 08:16 Dose: 10 ml Sodium Chloride (Flush - Normal Saline) 10 ml IVF PRN PRN PRN Reason: Saline Flush Sodium Chloride ([place] Nasal [place] 0.65%) 0 ml EA NARE QIDPRN PRN PRN Reason: Nasal Congestion Zolpidem Tartrate (Ambien) 5 mg PO HSPRN PRN PRN Reason: Insomnia
[2017-10-06] MEDS: Sodium Chloride 0.9% 1,000 ML IV SCH (12:01)
--- NOTE | 2017-10-06 13:03 | PRG ---
DATE OF SERVICE: 10/06/2017 SUBJECTIVE: The patient continues to be in good spirits. OBJECTIVE: VITAL SIGNS: Temperature 99.1, pulse 102, respirations 20, O2 saturation 97% on room air. HEENT: Unremarkable. NECK: No JVD. LUNGS: Fairly clear without rhonchi or wheezing. CARDIAC: S1 and S2 regular. ABDOMEN: Soft. EXTREMITIES: No edema. LABORATORY DATA: Hemoglobin 9.6, hematocrit 31, platelet count 101. I have reviewed the CT scan fro m yesterday. She has extensive bilateral nodular changes of the small effusion on the left. She has more of a mass in the hilum pointing down towards the right lower lobe. ASSESSMENT: I think we are likely dealing with metastatic disease in the lungs. My other concern wo uld be the possibility of a TE fistula connection, although I would expect more unilateral findings. PLAN: She is scheduled to receive chemotherapy next week. I would continue her on antibiotics and s ee if there is some response. I will discuss with Dr. Hendricks when he comes back on Sunday. Overall , the patient's prognosis is extremely poor.
[2017-10-06] MEDS: Carvedilol 3.125 MG TAB PO SCH (21:00)
[2017-10-07] MEDS: Vancomycin HCl 1 GM in Premix Bag 1 BAG IVPB SCH ×2 (04:10→12:12)
[2017-10-07] MEDS: Meropenem 1 GM in Sterile Water 20 ML SLOW IVP SCH ×3 (05:53→22:02)
[2017-10-07 06:12] LABS: #Lymphocytes 0.2 thou/uL (1.20-3.40); #Monocytes 0.3 thou/uL (0.11-0.59); #Neutrophils 6.7 thou/uL (1.40-6.50); %Eosinophils 0.1 % (0.0-10.0); %Lymphocytes 2.8 % (21.0-51.0); %Monocytes 3.9 % (0.0-10.0); %Neutrophils 93.3 % (42.0-75.0); Hemoglobin 9.8 g/dL (12.0-16.0); Mean Corpuscular HGB CONC 31.3 g/dL (32.0-36.0); Mean Corpuscular Volume 79.7 fl (81.0-99.0); Mean Platelet Volume 9.9 fL (7.4-10.4); Platelet Count 134 thou/uL (130-400); RBC Distribution Width 16.7 % (11.5-14.5); Red Blood Cell (RBC) Count 3.91 mill/uL (4.20-5.40); White Blood Cell (WBC) Count 7.2 thou/uL (4.8-10.8)
[2017-10-07 06:26] LABS: Anion Gap 11 mmol/L (10-20); BUN (Urea Nitrogen) 15 mg/dL (7.0-18.7); Calc. Creatinine Clearance 131 mL/min (70-130); Calcium 8.5 mg/dL (7.8-10.44); Carbon Dioxide 26 mmol/L (22-29); Chloride 99 mmol/L (98-107); Estimated GFR-MDRD Greater than 90; Glucose 180 mg/dL (70-105); Magnesium 2.4 mg/dL (1.6-2.6); Phosphorus 2.4 mg/dL (2.3-4.7); Potassium 4.8 mmol/L (3.5-5.1); Sodium 131 mmol/L (136-145)
[2017-10-07] MEDS: Mometasone/Formoterol 120 PUFF INHALER INH SCH ×2 (06:26→19:19)
[2017-10-07] MEDS: Carvedilol 3.125 MG TAB PO SCH ×2 (08:09→20:05)
[2017-10-07] MEDS: Morphine ER 30 MG TAB PO SCH ×2 (08:09→20:05)
[2017-10-07] MEDS: guaiFENesin ER 600 MG TAB PO SCH ×3 (08:10→20:05)
[2017-10-07] MEDS: Furosemide 20 MG TAB PO SCH (08:10)
[2017-10-07] MEDS: Lisinopril 2.5 MG TAB PO SCH (08:10)
[2017-10-07] MEDS: Enoxaparin Sodium 40 MG/0.4 ML SYRINGE SC SCH (08:10)
--- NOTE | 2017-10-07 09:48 | PDOC.PN ---
- Subjective Encounter Start Date: 10/07/17 Encounter Start Time: 07:10 Patient seen and examined. No overnight events she had vomiting this morning, feels weak - Objective MAR Reviewed: Yes Vital Signs & Weight: Vital Signs (12 hours) Temp Pulse Resp BP BP Pulse Ox 10/07/17 08:10 96 134/76 10/07/17 07:55 97.9 F 96 20 134/76 93 L 10/07/17 06:24 101 H 20 95 Weight Admit Weight 140 lb Weight 140 lb I&O: 10/06/17 10/07/17 10/08/17 06:59 06:59 06:59 Intake Total 2500 1350 Balance 2500 1350 Result Diagrams: 10/07/17 04:00 10/07/17 04:00 Phys Exam - Physical Examination Constitutional: NAD HEENT: PERRLA, moist MMs, sclera anicteric Neck: no JVD, supple Respiratory: no wheezing, no rales, no rhonchi mediport in place Cardiovascular: RRR, no significant murmur, no rub Gastrointestinal: soft, non-tender, no distention, positive bowel sounds Musculoskeletal: no edema, pulses present Neurological: non-focal, normal sensation, moves all 4 limbs Lymphatic: no nodes Psychiatric: normal affect, A&O x 3 Skin: no rash, normal turgor Dx/Plan (1) Hyponatremia Code(s): E87.1 - HYPO-OSMOLALITY AND HYPONATREMIA Status: Acute Comment: due to siadh (2) Respiratory distress Code(s): R06.03 - ACUTE RESPIRATORY DISTRESS Status: Acute Comment: due to systolic dysfunction, pneumonia, mets (3) Lymphadenopathy Code(s): R59.1 - GENERALIZED ENLARGED LYMPH NODES Status: Acute Comment: due to mets (4) Esophageal cancer Status: Chronic Comment: s/p chemo and radation therapy (5) GERD (gastroesophageal reflux disease) Code(s): K21.9 - GASTRO-ESOPHAGEAL REFLUX DISEASE WITHOUT ESOPHAGITIS Status: Chronic Qualifiers: Esophagitis presence: without esophagitis Qualified Code(s): K21.9 - Gastro -esophageal reflux disease without esophagitis (6) Hiatal hernia Code(s): K44.9 - DIAPHRAGMATIC HERNIA WITHOUT OBSTRUCTION OR GANGRENE Status: Chronic (7) Hypochromic microcytic anemia Code(s): D50.9 - IRON DEFICIENCY ANEMIA, UNSPECIFIED Status: Chronic (8) 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 Review of Systems - Review of Systems Constitutional: weakness. negative: fever, chills, sweats, malaise, other Eyes: negative: Pain, Vision Change, Conjunctivae Inflammation, Eyelid Inflammation, Redness, Other ENT: negative: Ear Pain, Ear Discharge, Nose Pain, Nose Discharge, Nose Congestion, Mouth Pain, Mouth Swelling, Throat Pain, Throat Swelling, Other Respiratory: SOB with Excertion. negative: Cough, Dry, Shortness of Breath, Hemoptysis, Pleuritic Pain, Sputum, Wheezing Cardiovascular: negative: chest pain, palpitations, orthopnea, paroxysmal nocturnal dyspnea, edema, light headedness, other Gastrointestinal: Vomiting. negative: Nausea, Abdominal Pain, Diarrhea, Constipation, Melena, Hematochezia, Other Genitourinary: negative: Dysuria, Frequency, Incontinence, Hematuria, Retention , Other Musculoskeletal: negative: Neck Pain, Shoulder Pain, Arm Pain, Back Pain, Hand Pain, Leg Pain, Foot Pain, Other Skin: negative: Rash, Lesions, Juan, Bruising, Other - Medications/Allergies Allergies/Adverse Reactions: Allergies Allergy/AdvReac Type Severity Reaction Status Date / Time chicken derived Allergy Verified 10/04/17 17:53 egg AdvReac Mild Verified 10/05/17 14:34 Medications: Current Medications Acetaminophen (Tylenol) 650 mg PO Q4H PRN PRN Reason: Headache/Fever or Pain Acetaminophen/Codeine Phosphate (Tylenol #3) 1 tab PO Q6HR PRN PRN Reason: Pain Last Admin: 10/04/17 22:47 Dose: 1 tab Hydrocodone Bitart/Acetaminophen ([place] 5/325) 1 tab PO Q4H PRN PRN Reason: Moderate Pain (4-6) Last Admin: 10/06/17 22:24 Dose: 1 tab Al Hydroxide/Mg Hydroxide (Maalox) 30 ml PO Q6H PRN PRN Reason: Heartburn or Indigestion Albuterol Sulfate (Ventolin) 2.5 mg NEB Q2H PRN PRN Reason: SOB &/or Wheezing Albuterol/Ipratropium (Duoneb) 3 ml NEB Q4H PRN PRN Reason: SOB &/or Wheezing Last Admin: 10/05/17 05:02 Dose: 3 ml Albuterol/Ipratropium (Duoneb) 3 ml NEB [id number] [facility] Last Admin: 10/07/17 06:24 Dose: 3 ml Artificial Tears (Tears Naturale) 0 drop EA EYE PRN PRN PRN Reason: Dry Eyes Bisacodyl (Dulcolax) 10 mg PO DAILYPRN PRN PRN Reason: Constipation Last Admin: 10/06/17 05:11 Dose: 10 mg Calcium Carbonate (Tums) 1,000 mg PO Q4H PRN PRN Reason: Heartburn or Indigestion Carvedilol (Coreg) 3.125 mg PO BID [facility] Last Admin: 10/07/17 08:09 Dose: 3.125 mg Clonidine (Catapres) 0.1 mg PO Q4H PRN PRN Reason: SBP>160 Enoxaparin Sodium (Lovenox) 40 mg SC 0900 [facility] Last Admin: 10/07/17 08:10 Dose: 40 mg Furosemide (Lasix) 20 mg PO QAM [facility] Last Admin: 10/07/17 08:10 Dose: 20 mg Guaifenesin (Mucinex) 600 mg PO TID [facility] Last Admin: 10/07/17 08:10 Dose: 600 mg Guaifenesin/Codeine Phosphate (Robitussin Ac) 10 ml PO Q6H PRN PRN Reason: Cough Hydralazine HCl (Apresoline) 10 mg SLOW IVP Q4H PRN PRN Reason: Systolic BP > 180 Meropenem 1 gm/ Sterile Water 20 mls @ 240 mls/hr SLOW IVP Q8HR [facility] Last Admin: 10/07/17 05:53 Dose: 20 mls Vancomycin HCl 1 gm/ Device 200 mls @ 200 mls/hr IVPB 0200,1000,1800 [facility] Last Admin: 10/07/17 04:10 Dose: 200 mls Lisinopril (Zestril) 2.5 mg PO DAILY [facility] Last Admin: 10/07/17 08:10 Dose: 2.5 mg Loperamide HCl (Imodium) 2 mg PO PRN PRN PRN Reason: Diarrhea/Loose Stools Loratadine (Claritin) 10 mg PO DAILYPRN PRN PRN Reason: Sinus Symptoms Lorazepam (Ativan) 1 mg SLOW IVP Q4H PRN PRN Reason: Anxiety/Agitation Magnesium Hydroxide (Milk Of Magnesium) 30 ml PO DAILYPRN PRN PRN Reason: Constipation Methylprednisolone Sodium Succinate (Solu-Medrol) 20 mg IVP Q6HR [facility] Last Admin: 10/07/17 05:53 Dose: 20 mg Mineral Oil/White Petrolatum (Eucerin Cream) 0 gm TOP BIDPRN PRN PRN Reason: Dry Skin Miscellaneous Medication (Pharmacy To Dose) 1 each IVPB DAILYPRN PRN PRN Reason: LABS Mometasone Furoate/Formoterol Fumar (Dulera 200 Mcg/5 Mcg Inhaler) 2 puff INH BID-RT [facility] Last Admin: 10/07/17 06:26 Dose: 2 puff Morphine Sulfate (Ms Contin) 30 mg PO BID [facility] Last Admin: 10/07/17 08:09 Dose: 30 mg Ondansetron HCl (Zofran) 4 mg IVP Q6H PRN PRN Reason: Nausea/Vomiting Ondansetron HCl (Zofran Odt) 4 mg PO Q6H PRN PRN Reason: Nausea/Vomiting Pantoprazole Sodium (Protonix) 40 mg PO BID [facility] Last Admin: 10/07/17 08:09 Dose: 40 mg Phenol (Chloraseptic [place] 180 Ml Bot) 0 ml PO PRN PRN PRN Reason: Sore Throat Potassium Chloride (Klor-Con) 20 meq PO BID [facility] Last Admin: 10/07/17 08:08 Dose: 20 meq Senna (Senokot) 2 tab PO HSPRN PRN PRN Reason: Constipation Sodium Chloride (Flush - Normal Saline) 10 ml IVF Q12HR [facility] Last Admin: 10/07/17 08:08 Dose: 10 ml Sodium Chloride (Flush - Normal Saline) 10 ml IVF PRN PRN PRN Reason: Saline Flush Sodium Chloride ([place] Nasal [place] 0.65%) 0 ml EA NARE QIDPRN PRN PRN Reason: Nasal Congestion Zolpidem Tartrate (Ambien) 5 mg PO HSPRN PRN PRN Reason: Insomnia
[2017-10-07] MEDS ORDERED: Vancomycin HCl 1 GM in Premix Bag 1 BAG IVPB SCH (12:00)
--- NOTE | 2017-10-07 14:36 | PRG ---
DATE OF SERVICE: 10/07/2017 SUBJECTIVE: The patient is doing okay, had no acute complaints. OBJECTIVE: VITAL SIGNS: Temperature 97.3, pulse 96, blood pressure 134/76, O2 sat 93%. HEENT: Unremarkable. NECK: No JVD. LUNGS: A few crackles in both bases. CARDIAC: S1 and S2 regular. ABDOMEN: Soft. EXTREMITIES: No edema. LABORATORY DATA: White blood cell count 7.2, hematocrit 31.2, platelet count 134. Sodium 131, potas sium 4.8, chloride 99, CO2 is 26, BUN 15, creatinine 0.5, glucose 180. ASSESSMENT: Metastatic esophageal cancer. PLAN: Chemotherapy next week, little to add from a pulmonary perspective. Dr. Hendricks will return t omorrow.
[2017-10-08] MEDS: HYDROcodone/Acetaminophen 5/325 mg Tablet PO PRN
[2017-10-08] MEDS: Meropenem 1 GM in Sterile Water 20 ML SLOW IVP SCH ×3 (05:42→22:01)
[2017-10-08] MEDS: Mometasone/Formoterol 120 PUFF INHALER INH SCH ×2 (06:34→19:17)
[2017-10-08] MEDS: Carvedilol 3.125 MG TAB PO SCH ×2 (09:41→21:05)
[2017-10-08] MEDS: Furosemide 20 MG TAB PO SCH (09:41)
[2017-10-08] MEDS: Enoxaparin Sodium 40 MG/0.4 ML SYRINGE SC SCH (09:41)
[2017-10-08] MEDS: Lisinopril 2.5 MG TAB PO SCH (09:42)
[2017-10-08] MEDS: guaiFENesin ER 600 MG TAB PO SCH ×3 (09:42→21:05)
[2017-10-08] MEDS: Morphine ER 30 MG TAB PO SCH ×2 (09:43→21:04)
--- NOTE | 2017-10-08 10:58 | PDOC.PN ---
- Subjective Encounter Start Date: 10/08/17 Encounter Start Time: 07:20 Patient seen and examined. No new complaints. No overnight events - Objective MAR Reviewed: Yes Vital Signs & Weight: Vital Signs (12 hours) Temp Pulse Resp BP BP Pulse Ox 10/08/17 09:42 100 123/73 10/08/17 08:35 99.0 F 100 18 123/73 94 L 10/08/17 06:32 85 20 95 Weight Admit Weight 140 lb Weight 140 lb I&O: 10/07/17 10/08/17 10/09/17 06:59 06:59 06:59 Intake Total 1350 1120 Balance 1350 1120 Result Diagrams: 10/07/17 04:00 10/07/17 04:00 Phys Exam - Physical Examination Constitutional: NAD HEENT: PERRLA, moist MMs, sclera anicteric Neck: no JVD, supple Respiratory: no wheezing, no rales, no rhonchi Cardiovascular: RRR, no significant murmur, no rub Gastrointestinal: soft, non-tender, no distention, positive bowel sounds Musculoskeletal: no edema, pulses present Neurological: non-focal, normal sensation, moves all 4 limbs Psychiatric: normal affect, A&O x 3 Skin: no rash, normal turgor Dx/Plan (1) Hyponatremia Code(s): E87.1 - HYPO-OSMOLALITY AND HYPONATREMIA Status: Acute Comment: due to siadh (2) Respiratory distress Code(s): R06.03 - ACUTE RESPIRATORY DISTRESS Status: Acute Comment: due to systolic dysfunction, pneumonia, mets (3) Lymphadenopathy Code(s): R59.1 - GENERALIZED ENLARGED LYMPH NODES Status: Acute Comment: due to mets (4) Esophageal cancer Status: Chronic Comment: s/p chemo and radation therapy (5) GERD (gastroesophageal reflux disease) Code(s): K21.9 - GASTRO-ESOPHAGEAL REFLUX DISEASE WITHOUT ESOPHAGITIS Status: Chronic Qualifiers: Esophagitis presence: without esophagitis Qualified Code(s): K21.9 - Gastro -esophageal reflux disease without esophagitis (6) Hiatal hernia Code(s): K44.9 - DIAPHRAGMATIC HERNIA WITHOUT OBSTRUCTION OR GANGRENE Status: Chronic (7) Hypochromic microcytic anemia Code(s): D50.9 - IRON DEFICIENCY ANEMIA, UNSPECIFIED Status: Chronic (8) 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 Review of Systems - Review of Systems ENT: negative: Ear Pain, Ear Discharge, Nose Pain, Nose Discharge, Nose Congestion, Mouth Pain, Mouth Swelling, Throat Pain, Throat Swelling, Other Respiratory: SOB with Excertion. negative: Cough, Dry, Shortness of Breath, Hemoptysis, Pleuritic Pain, Sputum, Wheezing Cardiovascular: negative: chest pain, palpitations, orthopnea, paroxysmal nocturnal dyspnea, edema, light headedness, other Gastrointestinal: negative: Nausea, Vomiting, Abdominal Pain, Diarrhea, Constipation, Melena, Hematochezia, Other Genitourinary: negative: Dysuria, Frequency, Incontinence, Hematuria, Retention , Other Musculoskeletal: negative: Neck Pain, Shoulder Pain, Arm Pain, Back Pain, Hand Pain, Leg Pain, Foot Pain, Other - Medications/Allergies Allergies/Adverse Reactions: Allergies Allergy/AdvReac Type Severity Reaction Status Date / Time chicken derived Allergy Verified 10/04/17 17:53 egg AdvReac Mild Verified 10/05/17 14:34 Medications: Current Medications Acetaminophen (Tylenol) 650 mg PO Q4H PRN PRN Reason: Headache/Fever or Pain Acetaminophen/Codeine Phosphate (Tylenol #3) 1 tab PO Q6HR PRN PRN Reason: Pain Last Admin: 10/04/17 22:47 Dose: 1 tab Hydrocodone Bitart/Acetaminophen ([place] 5/325) 1 tab PO Q4H PRN PRN Reason: Moderate Pain (4-6) Last Admin: 10/08/17 00:00 Dose: 1 tab Al Hydroxide/Mg Hydroxide (Maalox) 30 ml PO Q6H PRN PRN Reason: Heartburn or Indigestion Albuterol Sulfate (Ventolin) 2.5 mg NEB Q2H PRN PRN Reason: SOB &/or Wheezing Albuterol/Ipratropium (Duoneb) 3 ml NEB Q4H PRN PRN Reason: SOB &/or Wheezing Last Admin: 10/05/17 05:02 Dose: 3 ml Albuterol/Ipratropium (Duoneb) 3 ml NEB [id number] [facility] Last Admin: 10/08/17 06:32 Dose: 3 ml Artificial Tears (Tears Naturale) 0 drop EA EYE PRN PRN PRN Reason: Dry Eyes Bisacodyl (Dulcolax) 10 mg PO DAILYPRN PRN PRN Reason: Constipation Last Admin: 10/06/17 05:11 Dose: 10 mg Calcium Carbonate (Tums) 1,000 mg PO Q4H PRN PRN Reason: Heartburn or Indigestion Carvedilol (Coreg) 3.125 mg PO BID [facility] Last Admin: 10/08/17 09:41 Dose: 3.125 mg Clonidine (Catapres) 0.1 mg PO Q4H PRN PRN Reason: SBP>160 Enoxaparin Sodium (Lovenox) 40 mg SC 0900 [facility] Last Admin: 10/08/17 09:41 Dose: 40 mg Furosemide (Lasix) 20 mg PO QAM [facility] Last Admin: 10/08/17 09:41 Dose: 20 mg Guaifenesin (Mucinex) 600 mg PO TID [facility] Last Admin: 10/08/17 09:42 Dose: 600 mg Guaifenesin/Codeine Phosphate (Robitussin Ac) 10 ml PO Q6H PRN PRN Reason: Cough Hydralazine HCl (Apresoline) 10 mg SLOW IVP Q4H PRN PRN Reason: Systolic BP > 180 Meropenem 1 gm/ Sterile Water 20 mls @ 240 mls/hr SLOW IVP Q8HR [facility] Last Admin: 10/08/17 05:42 Dose: 20 mls Lisinopril (Zestril) 2.5 mg PO DAILY [facility] Last Admin: 10/08/17 09:42 Dose: 2.5 mg Loperamide HCl (Imodium) 2 mg PO PRN PRN PRN Reason: Diarrhea/Loose Stools Loratadine (Claritin) 10 mg PO DAILYPRN PRN PRN Reason: Sinus Symptoms Lorazepam (Ativan) 1 mg SLOW IVP Q4H PRN PRN Reason: Anxiety/Agitation Magnesium Hydroxide (Milk Of Magnesium) 30 ml PO DAILYPRN PRN PRN Reason: Constipation Methylprednisolone Sodium Succinate (Solu-Medrol) 20 mg IVP Q8HR [facility] Last Admin: 10/08/17 05:42 Dose: 20 mg Mineral Oil/White Petrolatum (Eucerin Cream) 0 gm TOP BIDPRN PRN PRN Reason: Dry Skin Mometasone Furoate/Formoterol Fumar (Dulera 200 Mcg/5 Mcg Inhaler) 2 puff INH BID-RT [facility] Last Admin: 10/08/17 06:34 Dose: 2 puff Morphine Sulfate (Ms Contin) 30 mg PO BID [facility] Last Admin: 10/08/17 09:43 Dose: 30 mg Ondansetron HCl (Zofran) 4 mg IVP Q6H PRN PRN Reason: Nausea/Vomiting Ondansetron HCl (Zofran Odt) 4 mg PO Q6H PRN PRN Reason: Nausea/Vomiting Pantoprazole Sodium (Protonix) 40 mg PO BID [facility] Last Admin: 10/08/17 09:43 Dose: 40 mg Phenol (Chloraseptic [place] 180 Ml Bot) 0 ml PO PRN PRN PRN Reason: Sore Throat Potassium Chloride (Klor-Con) 20 meq PO BID [facility] Last Admin: 10/08/17 09:44 Dose: 20 meq Senna (Senokot) 2 tab PO HSPRN PRN PRN Reason: Constipation Sodium Chloride (Flush - Normal Saline) 10 ml IVF Q12HR [facility] Last Admin: 10/08/17 09:44 Dose: 10 ml Sodium Chloride (Flush - Normal Saline) 10 ml IVF PRN PRN PRN Reason: Saline Flush Sodium Chloride ([place] Nasal [place] 0.65%) 0 ml EA NARE QIDPRN PRN PRN Reason: Nasal Congestion Zolpidem Tartrate (Ambien) 5 mg PO HSPRN PRN PRN Reason: Insomnia
--- NOTE | 2017-10-08 15:34 | PRG ---
DATE OF SERVICE: 10/08/2017 SERVICE: Pulmonary Medicine. INTERVAL HISTORY: The patient is doing okay from a respiratory standpoint. She denies any current f yanira, chills, nausea, vomiting or chest discomfort. She continues to have a cough, but this is not producing any sputum. Otherwise, there has been no interval change to her condition. PHYSICAL EXAMINATION: VITAL SIGNS: Afebrile with T-max of 99.0, pulse 100, blood pressure 123/73, respirations 18, saturat ion 95% on room air. GENERAL: The patient is awake and alert, in no apparent distress. LUNGS: Decent air entry. Dependent crackles are present. No prolonged expiratory phase is apprecia lorraine. HEART: Normal rate, regular. ABDOMEN: Soft, nontender, nondistended. Bowel sounds are positive. MUSCULOSKELETAL: No cyanosis or clubbing. There is no pitting in the bilateral lower extremities. NEUROLOGIC: Grossly nonfocal. LABORATORY DATA: WBC 7.2, hemoglobin 9.8, platelets 134,000. Basic metabolic profile is essentially unremarkable except for sodium 131. Magnesium and phosphorus fall within the normal limits. BNP is normal. Urinalysis is unremarkable. Blood cultures x2 and urine culture negative. ASSESSMENT: 1. Acute hypoxic respiratory failure, improving. 2. Pulmonary infiltrate. 3. Pleural effusion, bilateral, but larger on the left. 4. Adenocarcinoma of the esophagus, widely metastatic. DISCUSSION AND PLAN: I truthfully do not know what this infiltrate represents. It was there previou sly. Interventions during the previous hospitalization made that infiltrate go away. It has been go ing on for the last 6 months, but it has once again reappeared. We will continue the steroids and an tibiotics. If she remains stable tomorrow morning, she can be discharged from the hospital on a 7-da y course of Augmentin and a 10 day course of prednisone. We will have her back to clinic in 1-2 week s in the outpatient setting when I will repeat a chest x-ray to verify the infiltrate is going away. If it does not resolve, bronchoscopy may need to be considered looking for infectious, inflammatory, neoplastic processes. I will switch her steroids over to 40 mg of prednisone.
--- NOTE | 2017-10-08 15:41 | DIS ---
DATE OF ADMISSION: 10/04/2017 DATE OF DISCHARGE: 10/08/2017 PRIMARY CARE PHYSICIAN: Anant Esquivel D.O. DISCHARGE DISPOSITION: Home. PRIMARY DISCHARGE DIAGNOSES: Metastatic esophageal cancer, hypochromic microcytic anemia, hiatal her zakia, gastroesophageal reflux disease, esophageal cancer, lymphadenopathy, thrombocytopenia, respirato ry distress, and hyponatremia. PRIMARY PROCEDURE/OPERATION: None. RADIOLOGICAL INVESTIGATION: CT angiography. SIGNIFICANT LABORATORY DATA: Hemoglobin 9.8 and creatinine 0.55. Urinalysis normal. Blood culture negative. Urine culture negative. DISCHARGE MEDICATIONS: Tylenol #3 one or two tablets p.o. q.6 hourly p.r.n., Ventolin HFA 2 puffs q. 6 hourly p.r.n., Decadron 4 mg p.o. b.i.d., Lasix 20 mg p.o. daily, lansoprazole 30 mg p.o. b.i.d., L evaquin 500 mg p.o. daily, lisinopril 2.5 mg p.o. daily, lorazepam one tablet q.i.d. p.r.n., Dulera 2 puffs inhalation b.i.d., morphine ER 30 mg p.o. b.i.d., potassium chloride 20 mEq p.o. b.i.d., Coreg 3.125 mg p.o. b.i.d. CONTRAINDICATIONS: None. CODE STATUS: FULL CODE. INPATIENT CONSULTANTS: Dr. Michael and Dr. Hendricks were following while in hospital. TEST RESULTS PENDING ON DISCHARGE: None. ALLERGIES: No known drug allergy. DISCHARGE PLAN: Post hospital, patient will follow up with Oncology and Pulmonology as well as prima care physician. HOSPITAL COURSE: A 46-year-old female who was admitted by Dr. Vega, please see her H&P for furthe r detail. This patient was admitted for dyspnea. CT angio was negative for pulmonary embolism, but it did show metastasis to the lung. This patient also has systolic dysfunction and that is why we ad ded lisinopril during this admission. Patient was treated with respiratory therapy. We suspected pn eumonia and that is why she was given any antibiotic therapy as well. While in hospital, she was giv en meropenem and vancomycin. On discharge, we changed to Levaquin. Her blood culture remained negat [place]. Rest of medication was continued as per previous. Because of systolic dysfunction, we are also adding Coreg 3.125 mg p.o. b.i.d. All new medication prescription sent to her pharmacy. Patient is seen and examined at bedside today. She is on room air. She is ambulatory. She is abdi ating p.o. well and she will come back again on 10/10/2017 for chemoradiation therapy. This patient is at high risk for recurrent admission. The patient is seen and examined at bedside today. Please see my progress note from today for furthe r detail.
[2017-10-09] MEDS: Meropenem 1 GM in Sterile Water 20 ML SLOW IVP SCH (05:59)
[2017-10-09] MEDS ORDERED: predniSONE 20 MG TAB PO SCH (08:00)
[2017-10-09] MEDS: Mometasone/Formoterol 120 PUFF INHALER INH SCH (08:00)
[2017-10-09 08:40] VITALS: TEMP 97.9
[2017-10-09] MEDS: Enoxaparin Sodium 40 MG/0.4 ML SYRINGE SC SCH (08:45)
[2017-10-09] MEDS: Lisinopril 2.5 MG TAB PO SCH (08:46)
[2017-10-09] MEDS: Morphine ER 30 MG TAB PO SCH (08:47)
[2017-10-09] MEDS: Carvedilol 3.125 MG TAB PO SCH (08:48)
[2017-10-09] MEDS: guaiFENesin ER 600 MG TAB PO SCH ×2 (08:48→16:43)
[2017-10-09] MEDS: Furosemide 20 MG TAB PO SCH (08:48)
[2017-10-09] MEDS: HYDROcodone/Acetaminophen 5/325 mg Tablet PO PRN (10:14)
--- NOTE | 2017-10-09 12:18 | ADD-DIS ---
ADDENDUM: "THE DISCHARGE DATE IS SAY 10/09/2017." ANTONIAD
[2017-10-09 13:23] VITALS: BP 102/59
[2017-10-09] MEDS ORDERED: MEROPENEM 1 GM/50 ML 1 GM in Premix Bag 1 BAG IVPB SCH (14:00)
[2017-10-09] MEDS ORDERED: MEROPENEM 1 GM/50 ML 1 GM in Admixture Fee 1 EACH IVPB SCH (14:00)
== END 2017-10-09 17:35 | disposition home or self-care (01) | DRG 189 ==
LOC: ONC 16:57
PROVIDERS: ADMIT Internal Medicine; ATTEND Internal Medicine
DX: J96.00 Acute respiratory failure, unspecified whether with hypoxia or hypercapnia (principal); J18.9 Pneumonia, unspecified organism; C78.00 Secondary malignant neoplasm of unspecified lung; C77.9 Secondary and unspecified malignant neoplasm of lymph node, unspecified; C15.9 Malignant neoplasm of esophagus, unspecified; C78.7 Secondary malignant neoplasm of liver and intrahepatic bile duct; D69.6 Thrombocytopenia, unspecified; E87.1 Hypo-osmolality and hyponatremia; C79.51 Secondary malignant neoplasm of bone; K21.9 Gastro-esophageal reflux disease without esophagitis; D63.0 Anemia in neoplastic disease; K44.9 Diaphragmatic hernia without obstruction or gangrene; D50.9 Iron deficiency anemia, unspecified
CPT/HCPCS: 71275; 80048; 80053; 80202; 81003; 82565; 83735; 83880; 84100; 85014; 85018; 85025; 85049; 87040; 87086; 94640; 94664; 94760; A4216; J1642; J1650; J2185; J2405; J2920; J3370; J7506; J7620

== ENCOUNTER 2017-10-17 09:13 | Inpatient (IN) | payer BC ==
[2017-10-17] MEDS ORDERED: HYDROcodone/Acetaminophen 5/325 mg Tablet ONE (10:58)
--- NOTE | 2017-10-17 12:53 | RAD ---
TWO VIEWS RIGHT HIP: 10/17/2017 HISTORY: Fall from wheelchair, trying to get out of wheelchair. The patient is complaining of right hip pain. FINDINGS: There is no fracture or dislocation involving the right hip. No lytic or sclerotic lesion is appreci ated. There is a lucency overlying the superolateral aspect of the right iliac bone, but this is pro bably related to artifact from overlying soft tissue. This does not appear to represent a fracture. No other findings. IMPRESSION: No acute osseous abnormality, right hip. POS: JANINE
--- NOTE | 2017-10-17 15:23 | CT ---
CT PELVIS NONCONTRAST: HISTORY: Pelvic pain. COMPARISON: 09/06/17. FINDINGS: Aggressive destructive lesion involving the lateral margin of the right iliac crest has progressed si nce the prior study, now with a nondisplaced obliquely oriented linear fracture with minimal displace ment. Soft tissue component of the mass extending into the right lateral pelvis along the right marleni cus muscle is now 5.4 x 2.7 cm greatest diameters on the axial images. A small amount of free fluid is apparent within the pelvis. The lobular lytic lesion involving the posterior aspect of the right iliac bone adjacent to the sacro iliac joint is now 2.9 cm greatest diameter. It is larger and more conspicuous than the previous CT. IMPRESSION: 1. Enlargement and progression of the aggressive metastatic disease involving the right iliac bone, as detailed above, now with a pathologic fracture involving the anterior margin of the right iliac cr est. 2. Small amount of free fluid has developed within the pelvis. POS: LUKASZ
[2017-10-17] MEDS ORDERED: Morphine 4 MG/ML VIAL SLOW IVP PRN (16:43)
[2017-10-17] MEDS ORDERED: Milk Of Magnesia 30 ML UDCUP PO PRN (16:43)
[2017-10-17] MEDS ORDERED: Acetaminophen 325 MG TAB PO PRN (16:43)
[2017-10-17] MEDS ORDERED: HYDROcodone/Acetaminophen 10/325 mg Tablet ONE (18:06)
--- NOTE | 2017-10-17 20:04 | HP ---
PRIMARY CARE PHYSICIAN: Anant Esquivel D.O. PRESENTING COMPLAINT: Right hip pain. HISTORY OF PRESENT ILLNESS: Ms. Emiliano Haddad is a 46-year-old female with history of metastatic esoph ageal cancer, who reports pain in her right hip. She stated that on Sunday evening she was taking a step down and suddenly heard a hip pop with subsequent 10/10 excruciating right hip pain, aggravated by motion and relieved by not moving her limb. She decided to take her home pain meds and see if it would get better, but due to continuous pain, she decided to present to the emergency room. No histo ry of trauma to the affected extremity. No history of falls. PAST MEDICAL HISTORY: Stage IV esophageal cancer, arthritis, anemia, acid reflux, history of pericar ditis in 2013, fatty liver. PAST SURGICAL HISTORY: Left knee replacement, cholecystectomy, ERCP, multiple left knee surgeries, M ediPort placement. ALLERGIES: EGGS and CHICKEN products, but no drug allergies. FAMILY HISTORY: Liver cancer in her grandfather who was a smoker, also reports CVA and brain tumor i n her grandmother. SOCIAL HISTORY: No drugs, tobacco or alcohol use. HOME MEDICATIONS: Acetaminophen with codeine 1-2 tablets every 6 hours p.r.n. for pain, albuterol krause lfate 2 puffs inhaled q.6 hours p.r.n. for shortness of breath, carvedilol 3.125 mg p.o. b.i.d., dexa methasone 4 mg b.i.d., furosemide 20 mg q.a.m., lansoprazole 30 mg b.i.d., levofloxacin 500 mg daily, lisinopril 2.5 mg daily, lorazepam 1 tablet p.o. q.i.d., mometasone/formoterol inhaler two puffs inh aled t.i.d., morphine extended release 30 mg b.i.d., potassium chloride 20 mEq b.i.d. CODE STATUS: FULL. REVIEW OF SYSTEMS: General: Negative. Skin: Negative. HEENT: Negative. Respiratory: Negative. Cardiovascular: Denies chest pain, shortness of breath. Abdomen: Denies abdominal pain, nausea, vomiting, diarrhea or constipation. Musculoskeletal: Positive for right hip pain. Neurologic: Negative. Psychiatric: Negative. Allergy/Immunology: Negative. Hematologic: Negative. PHYSICAL EXAMINATION: VITAL SIGNS: Stable. GENERAL: Not in acute distress, sitting comfortably in bed. HEENT: Normocephalic, atraumatic. Not pale, anicteric. Moist mucous membranes. PERRLA. EOMI. NECK: Supple, full range of movement. No JVD. RESPIRATORY: Vesicular breath sounds bilaterally with no wheezes or rales. CARDIOVASCULAR: S1 and S2 only. Regular rate and rhythm. No murmurs, rubs or gallops. ABDOMEN: Soft, nontender, nondistended. Normoactive bowel sounds. No hepatosplenomegaly. MUSCULOSKELETAL: Limited motion of the right hip. No edema. NEUROLOGIC: Alert and well oriented to time, place, and person. No focal deficits. SKIN: Warm, dry, well perfused. No rashes or lesions. PSYCHIATRIC: Normal mood and affect. IMAGING: Pelvis CT shows enlargement and progression of the aggressive metastatic disease involving the right iliac bone, now with a pathological fracture involving the anterior margin of the right brijesh ac crest, small amounts of free fluid developed within the pelvis. Hip x-ray, no acute abnormalities of the right hip is noted. ASSESSMENT/ PLAN: 1. Pathological fracture of the right iliac crest. The patient's pain is going to be well controlle d with Campbell and IV morphine for severe pain. We will consult PT/OT. Initial plan was to have the p atkelsie admitted through [facility], but no beds available for now. We will have her see our physical and occupational therapies while she is in hospital and control her pain. Also, sheila rubalcava disability case manager for discharge planning. 2. Intractable pain as above. 3. Metastatic esophageal cancer, stable. She has metastasis to lungs and bones. We will continue h er home medications. 4. Gastroesophageal reflux disease. Continue proton pump inhibitor.
[2017-10-17] MEDS: Docusate 100 MG CAP PO SCH (21:21)
[2017-10-17] MEDS: HYDROcodone/Acetaminophen 7.5/325 mg Tablet PO PRN (22:14)
[2017-10-18] MEDS: HYDROcodone/Acetaminophen 7.5/325 mg Tablet PO PRN ×2 (05:07→14:03)
[2017-10-18 06:19] LABS: Hemoglobin 7.4 g/dL (12.0-16.0); Mean Corpuscular Hemoglobin 25.2 pg (27.0-31.0); Mean Corpuscular Volume 78.7 fl (81.0-99.0); Mean Platelet Volume 9.7 fL (7.4-10.4); Platelet Count 93 thou/uL (130-400); RBC Distribution Width 17.3 % (11.5-14.5); Red Blood Cell (RBC) Count 2.93 mill/uL (4.20-5.40); White Blood Cell (WBC) Count 1.4 thou/uL (4.8-10.8)
[2017-10-18 06:24] LABS: Anion Gap 5 mmol/L (10-20); BUN (Urea Nitrogen) 12 mg/dL (7.0-18.7); Calc. Creatinine Clearance 185 mL/min (70-130); Calcium 6.3 mg/dL (7.8-10.44); Carbon Dioxide 24 mmol/L (22-29); Chloride 110 mmol/L (98-107); Estimated GFR-MDRD Greater than 90; Glucose 72 mg/dL (70-105); Potassium 3.1 mmol/L (3.5-5.1); Sodium 136 mmol/L (136-145)
[2017-10-18] MEDS ORDERED: Lorazepam 0.5 MG TAB PO PRN (08:01)
[2017-10-18] MEDS ORDERED: Acetaminophen/Codeine 30-300mg Tablet PO PRN (08:01)
[2017-10-18] MEDS: Dexamethasone 4 MG TAB PO SCH (08:44)
[2017-10-18] MEDS: Morphine ER 30 MG TAB PO SCH ×2 (08:45→21:40)
[2017-10-18] MEDS: Docusate 100 MG CAP PO SCH ×2 (08:45→21:35)
[2017-10-18] MEDS: Enoxaparin Sodium 40 MG/0.4 ML SYRINGE SC SCH (08:46)
[2017-10-18] MEDS ORDERED: Non-Formulary Item 1 EACH (Lansoprazole [Lansoprazole] 30 MG) PO SCH (09:00)
[2017-10-18] MEDS ORDERED: PACLITAXEL IVPB SCH (09:15)
[2017-10-18] MEDS ORDERED: ADMIXTURE FEE IVPB SCH (09:15)
[2017-10-18] MEDS ORDERED: Dexamethasone 10 MG/ML VIAL SLOW IVP SCH (09:15)
[2017-10-18] MEDS ORDERED: SODIUM CHLORIDE IVPB SCH (09:15)
--- NOTE | 2017-10-18 11:20 | CON ---
DATE OF CONSULTATION: 10/18/2017 REASON FOR CONSULTATION: Esophageal cancer. HISTORY OF PRESENT ILLNESS: Ms. Cummings is a pleasant 46-year-old female who was diagnosed with stage IV esophageal cancer in 02/2017. She underwent palliative treatment, but unfortunately progressed i august of this year with lung and bone mets. She has undergone radiation to her esophagus and ba ck. She started a new treatment plan consisting of Taxol and Cyramza last week. On Sunday, she took a step and felt a sharp pain in her right hip. The pain has been unrelenting. She presented to the emergency room for evaluation. Pelvic CT scan showed a pathological fracture of the right iliac bon e. She was admitted for pain control and further treatment. Her pain has been managed with narcotic pain medications. She denies any pain at this time. No chest pain or shortness of breath. No dysp hagia. PAST MEDICAL HISTORY: 1. Metastatic esophageal adenocarcinoma. 2. Iron deficient anemia. 3. Arthritis. 4. Acid reflux. PAST SURGICAL HISTORY: 1. MediPort placement. 2. Knee surgery. 3. Cholecystectomy. ALLERGIES: No known drug allergies. HOME MEDICATIONS: 1. Tylenol #3 p.r.n. 2. Dexamethasone 4 mg daily. 3. Lisinopril 30 mg b.i.d. 4. Lorazepam 0.5 mg q.i.d. p.r.n. 5. Morphine ER 30 mg b.i.d. FAMILY HISTORY: Her father had liver cancer. SOCIAL HISTORY: She is single and lives alone. No alcohol, tobacco or illicit drug use. REVIEW OF SYSTEMS: Twelve point review of systems is negative except for noted in HPI. PHYSICAL EXAMINATION: VITAL SIGNS: Temperature is 98.2, pulse is 103, respiratory rate 16, BP is 123/78. She is 96% on ro om air. GENERAL: This is a well-developed, well-nourished female in no acute distress. HEENT: Normocephalic, atraumatic. Pupils equal and reactive to light. NECK: Supple. CARDIOVASCULAR: Regular rate and rhythm. LUNGS: Clear. ABDOMEN: Soft, nontender, bowel sounds are positive. EXTREMITIES: There is no clubbing, cyanosis or edema. SKIN: No rash. HEMATOLOGIC: No petechia or purpura. NEUROLOGIC: Nonfocal. PSYCHIATRIC: The patient is alert and oriented and appropriate. PERTINENT LABORATORY AND X-RAYS: Current WBCs are 1.4, hemoglobin 7.4, hematocrit 23.1, platelet cou nt is 93,000. Sodium is 136, potassium 3.1, chloride 110, CO2 is 24, BUN is 12, creatinine is less t ott 0.4, calcium is 6.3. Radiology per HPI. IMPRESSION: 1. Metastatic esophageal cancer. 2. Pathological fracture of the right iliac crest bone. 3. Neutropenia. DISCUSSION: The patient's pain has been controlled with narcotic pain medication. She has not had a bowel movement in several days. We will start a bowel regimen. Dr. Kohler has seen the patient and planned simulation today for radiation to this metastatic lesion. She is due for weekly Taxol today which I will give as an inpatient. The case has been discussed with Dr. Moya and Dr. Kohler. Thank you for the consult. We will follow her closely.
--- NOTE | 2017-10-18 11:38 | CON ---
DATE OF CONSULTATION: 10/18/2017 REASON FOR CONSULTATION: Ms. Cummings is a 46-year-old female well known to me from her metastatic ned nocarcinoma of the esophagus. She recently developed a new bony metastatic lesion with a pathologica l fracture. HISTORY OF PRESENT ILLNESS: Ms. Cummings is well known to me. She recently completed a course of pall iative radiation therapy, because of bone metastasis from her known esophageal cancer. She was havin g lower back pain, but also mid thoracic pain. She tolerated her radiation therapy well and actually has had resolution of pain in those areas that was treated. More recently, she was started on chemo therapy with Taxol and Cyramza and she is receiving this weekly. She received 2 weekly doses of this therapy and was scheduled to receive her third weekly dose today. Yesterday, she took a step down a nd felt a pop in her right upper hip region and has had severe pain since then. She was brought to [facility] for admission for pain control and workup. She did have a CT scan of the pelvis, which s howed progression of a lesion in the right iliac crest region with an obliquely oriented pathological fracture through this area. Additional lytic lesions were seen in the bone. Presently, her pain lo calizes to the right iliac crest region. This is her only area of pain. Her shortness of breath is much improved since I saw her. She is eating and swallowing without difficulty. She voices no other complaints. PAST MEDICAL HISTORY: 1. Esophageal adenocarcinoma as mentioned above. 2. GE reflux disease. 3. Status post cholecystectomy. 4. History of knee surgeries. MEDICATIONS: Dexamethasone, [place], morphine, Paclitaxel, Cyramza, potassium, and lansoprazole. ALLERGIES: No known medical allergies. SOCIAL HISTORY: She has no cigarette use. She drinks approximately 1-2 alcoholic beverages per patricia h. She lives here in town by herself. She works for [employer]. FAMILY HISTORY: Her paternal grandfather had lung cancer. Her maternal grandfather had liver cancer . She had an uncle with pancreatic cancer. Her mother is still living at age 71 and her father is s till living at age 82 with no particular medical problems. REVIEW OF SYSTEMS: A 12 system review of systems is otherwise negative. PHYSICAL EXAMINATION: VITAL SIGNS: Blood pressure 123/78, pulse is 103, respirations are 16, temperature 98.2, O2 saturati on was 96%. GENERAL: She is alert and oriented and in no apparent distress. Karnofsky performance status is an 80%. EYES: Pupils equal, round, reactive to light. Extraocular movements are intact. ENT: Oral cavity and oropharynx normal without lesion or erythema. Palate elevates symmetrically. Ging[place] is intact. NECK: Supple, without cervical or supraclavicular adenopathy. No thyromegaly. Larynx midline. LUNGS: Breathing nonlabored. Clear to auscultation and percussion. CARDIOVASCULAR: Heart is regular rate and rhythm without murmur. No lower extremity edema. BACK: No tenderness on fist percussion of her spine. Her area of tenderness localized to the right iliac crest region. ABDOMEN: Bowel sounds present. Soft, nontender, nondistended, without mass or hepatosplenomegaly. Liver percussed to normal size. LYMPHATIC: No axillary or inguinal adenopathy. SKIN: Without rash or purpura. NEUROLOGIC: Cranial nerves II through XII grossly intact. Motor strength is 5/5 in both upper and l ower extremities in all muscle groups tested. Gait was not tested. RADIOLOGIC: CT scan of the pelvis was personally reviewed and again shows enlargement in progression of the metastatic lesion involving the right iliac bone. There is soft tissue extension. There is an oblique pathological fracture through this area. She has additional lytic lesion in the pelvis as well. LABORATORY DATA: CBC revealed a white blood count of 1400 with hemoglobin of 7.4, hematocrit of 23.1 , platelet count of 93,000. Chemistry group revealed sodium of 136 and potassium of 3.1. Creatinine was less than 0.4. Calcium was 6.3. ASSESSMENT: Ms. Cummings is a 46-year-old female with progressive metastatic adenocarcinoma who now goncalves s a new area of painful bone metastasis from her stage IV esophageal cancer. PLAN: I have discussed the case with Dr. Moya and with Samantha Varela, Nurse Practitioner. I have also discussed this with Ms. Cummings. I think it is reasonable to add palliative radiation therapy to her chemotherapy. Radiation will be given to the right iliac crest region. The logistics of radiat ion as well as the benefits and risks of treatment were discussed. Side effects would include but no t be limited to skin reaction, fatigue, lower blood counts, nausea, vomiting, abdominal cramping, herlinda rrhea, and small risk of damage to her intestines or other structures which receive radiation therapy . She is tentatively agreeable to proceed with radiations recommended to her. I anticipate that she will continue her chemotherapy during the radiation. We will take steps to minimize the amount of anila abebe in the treatment field. I will make arrangements for simulation either later today or tomorrow, so that we can begin her treatment shortly. Time was taken to answer all of her questions and again she is well motivated to proceed with the treatment plan. Thank you for this interesting consultation.
[2017-10-18] MEDS: Lorazepam 0.5 MG TAB PO PRN ×2 (14:06→21:35)
--- NOTE | 2017-10-18 14:23 | PDOC.PN ---
- Subjective Encounter Start Date: 10/18/17 Encounter Start Time: 14:28 Subjective: Feels much better today. Pain well controlled. -: No acute events overnight. - Objective MAR Reviewed: Yes Vital Signs & Weight: Vital Signs (12 hours) Temp Pulse Resp BP BP Pulse Ox 10/18/17 08:02 98.2 F 103 H 16 123/78 123 H 10/18/17 08:00 98.2 F 103 H 16 123/78 96 Weight Weight 144 lb I&O: 10/17/17 10/18/17 10/19/17 06:59 06:59 06:59 Intake Total 480 120 Output Total 850 Balance -370 120 Result Diagrams: 10/18/17 06:12 10/18/17 04:00 Phys Exam - Physical Examination Constitutional: NAD HEENT: PERRLA, moist MMs, sclera anicteric, oral pharynx no lesions Neck: no JVD, supple, full ROM Respiratory: no wheezing, no rales, no rhonchi, clear to auscultation bilateral Cardiovascular: RRR, no significant murmur, no rub Gastrointestinal: soft, non-tender, no distention, positive bowel sounds Musculoskeletal: no edema, pulses present Neurological: non-focal Psychiatric: normal affect, A&O x 3 Skin: no rash, normal turgor Dx/Plan (1) Fracture of right iliac crest Code(s): S32.301A - UNSP FRACTURE OF RIGHT ILIUM, INIT FOR CLOS FX Status: Acute Qualifiers: Encounter type: subsequent encounter Fracture type: closed Comment: Pathological fracture. Pain adequately controlled. Oncology consult in place. Patient might also benefit from RadOnc evaluation. (2) Esophageal cancer Status: Chronic Qualifiers: Malignant neoplasm of esophagus location: unspecified location Qualified Code(s): C15.9 - Malignant neoplasm of esophagus, unspecified Comment: s/p chemo and radation therapy (3) GERD (gastroesophageal reflux disease) Code(s): K21.9 - GASTRO-ESOPHAGEAL REFLUX DISEASE WITHOUT ESOPHAGITIS Status: Chronic Qualifiers: Esophagitis presence: without esophagitis Qualified Code(s): K21.9 - Gastro -esophageal reflux disease without esophagitis Comment: Continue PPI (4) Metastasis from esophageal cancer Code(s): C79.9 - SECONDARY MALIGNANT NEOPLASM OF UNSPECIFIED SITE; C15.9 - MALIGNANT NEOPLASM OF ESOPHAGUS, UNSPECIFIED Status: Chronic (5) Intractable pain Code(s): R52 - PAIN, UNSPECIFIED Status: Resolved Comment: 2/2 pathological fracture. - Plan cont current plan of care, PT/OT, social group worker, DVT proph w/lovenox * . Review of Systems - Medications/Allergies Allergies/Adverse Reactions: Allergies Allergy/AdvReac Type Severity Reaction Status Date / Time chicken derived Allergy Verified 10/04/17 17:53 Medications: Current Medications Acetaminophen (Tylenol) 650 mg PO Q4H PRN PRN Reason: Headache/Fever or Pain Acetaminophen/Codeine Phosphate (Tylenol #3) 1 tab PO Q6H PRN PRN Reason: Pain Hydrocodone Bitart/Acetaminophen ([place] 7.5/325) 1 tab PO Q4H PRN PRN Reason: Moderate Pain (4-6) Last Admin: 10/18/17 14:03 Dose: 1 tab Dexamethasone (Decadron) 4 mg PO DAILY [facility] Last Admin: 10/18/17 08:44 Dose: 4 mg Dexamethasone (Decadron) 10 mg SLOW IVP ONE [facility] Stop: 10/18/17 21:00 Last Admin: 10/18/17 10:01 Dose: 10 mg Docusate Sodium (Colace) 100 mg PO BID [facility] Last Admin: 10/18/17 08:45 Dose: 100 mg Enoxaparin Sodium (Lovenox) 40 mg SC 0900 [facility] Last Admin: 10/18/17 08:46 Dose: 40 mg Paclitaxel 135 mg/Miscellaneous Medication 1 each/ Sodium Chloride 272.5 mls @ 272.5 mls/hr IVPB ONE [facility] Stop: 10/18/17 21:00 Last Admin: 10/18/17 10:41 Dose: 272.5 mls Lactulose (Lactulose) 20 gm PO DAILYPRN PRN PRN Reason: Constipation Lorazepam (Ativan) 0.5 mg PO QIDPRN PRN PRN Reason: Anxiety Last Admin: 10/18/17 14:06 Dose: 0.5 mg Magnesium Hydroxide (Milk Of Magnesium) 30 ml PO DAILYPRN PRN PRN Reason: Constipation Morphine Sulfate (Morphine) 2 mg SLOW IVP Q4H PRN PRN Reason: Severe Pain (7-10) Morphine Sulfate (Ms Contin) 30 mg PO BID [facility] Last Admin: 10/18/17 08:45 Dose: 30 mg Pantoprazole Sodium (Protonix) 40 mg PO BID [facility] Last Admin: 10/18/17 08:45 Dose: 40 mg Polyethylene Glycol (Miralax) 17 gm PO DAILY [facility] Potassium Chloride (K-Dur) 40 meq PO BID-[facility] Stop: 10/19/17 17:01 Sodium Chloride (Flush - Normal Saline) 10 ml IVF Q12HR [facility] Sodium Chloride (Flush - Normal Saline) 10 ml IVF PRN PRN PRN Reason: Saline Flush
[2017-10-18 14:59] LABS: #Lymphocytes 0.1 thou/uL (1.20-3.40); #Neutrophils 1.9 thou/uL (1.40-6.50); %Basophils 0.7 % (0.0-1.0); %Eosinophils 0.8 % (0.0-10.0); %Lymphocytes 5.2 % (21.0-51.0); %Monocytes 0.7 % (0.0-10.0); %Neutrophils 92.6 % (42.0-75.0); Hemoglobin 9.6 g/dL (12.0-16.0); Mean Corpuscular HGB CONC 32.5 g/dL (32.0-36.0); Mean Corpuscular Hemoglobin 25.4 pg (27.0-31.0); Mean Corpuscular Volume 78.2 fl (81.0-99.0); Mean Platelet Volume 9.5 fL (7.4-10.4); Platelet Count 123 thou/uL (130-400); RBC Distribution Width 17.8 % (11.5-14.5); Red Blood Cell (RBC) Count 3.79 mill/uL (4.20-5.40); White Blood Cell (WBC) Count 2.1 thou/uL (4.8-10.8)
[2017-10-18] MEDS: Potassium Chloride 20 MEQ TAB PO SCH (16:32)
[2017-10-19] MEDS: HYDROcodone/Acetaminophen 7.5/325 mg Tablet PO PRN ×3 (01:04→21:08)
[2017-10-19 05:56] LABS: #Lymphocytes 0.1 thou/uL (1.20-3.40); #Monocytes 0.1 thou/uL (0.11-0.59); #Neutrophils 1.4 thou/uL (1.40-6.50); %Eosinophils 0.1 % (0.0-10.0); %Lymphocytes 6.3 % (21.0-51.0); %Monocytes 4.2 % (0.0-10.0); %Neutrophils 89.5 % (42.0-75.0); Hemoglobin 8.8 g/dL (12.0-16.0); Mean Corpuscular Hemoglobin 25.1 pg (27.0-31.0); Mean Corpuscular Volume 78.3 fl (81.0-99.0); Mean Platelet Volume 9.8 fL (7.4-10.4); Platelet Count 130 thou/uL (130-400); RBC Distribution Width 17.8 % (11.5-14.5); White Blood Cell (WBC) Count 1.6 thou/uL (4.8-10.8)
[2017-10-19 06:20] LABS: Anion Gap 10 mmol/L (10-20); BUN (Urea Nitrogen) 10 mg/dL (7.0-18.7); Calc. Creatinine Clearance 164 mL/min (70-130); Calcium 7.9 mg/dL (7.8-10.44); Carbon Dioxide 24 mmol/L (22-29); Chloride 104 mmol/L (98-107); Estimated GFR-MDRD Greater than 90; Glucose 119 mg/dL (70-105); Potassium 4.8 mmol/L (3.5-5.1); Sodium 133 mmol/L (136-145)
[2017-10-19] MEDS: Docusate 100 MG CAP PO SCH ×2 (08:16→21:07)
[2017-10-19] MEDS: Dexamethasone 4 MG TAB PO SCH (08:16)
[2017-10-19] MEDS: Potassium Chloride 20 MEQ TAB PO SCH ×2 (08:16→17:14)
[2017-10-19] MEDS: Morphine ER 15 MG TAB PO SCH ×2 (08:17→21:07)
[2017-10-19] MEDS: Polyethylene Glycol 3350 17 GM Packet PO SCH (08:17)
[2017-10-19] MEDS: Enoxaparin Sodium 40 MG/0.4 ML SYRINGE SC SCH (08:18)
--- NOTE | 2017-10-19 13:07 | PDOC.PN ---
- Subjective Encounter Start Date: 10/19/17 Encounter Start Time: 13:10 Subjective: No acute events overnight. -: No complaints today. Pain well controlled. - Objective MAR Reviewed: Yes Vital Signs & Weight: Vital Signs (12 hours) Temp Pulse Resp BP Pulse Ox 10/19/17 08:21 98.1 F 89 16 135/85 100 10/19/17 08:00 98.1 F 89 16 Weight Admit Weight 143 lb 9.6 oz Weight 143 lb 9.393 oz I&O: 10/18/17 10/19/17 10/20/17 06:59 06:59 06:59 Intake Total 480 2140 Output Total 850 1675 Balance -370 465 Result Diagrams: 10/19/17 05:51 10/19/17 05:51 Phys Exam - Physical Examination Constitutional: NAD HEENT: PERRLA, moist MMs, sclera anicteric, oral pharynx no lesions Neck: no JVD, supple, full ROM Respiratory: no wheezing, no rales, no rhonchi, clear to auscultation bilateral Cardiovascular: RRR, no significant murmur, no rub Gastrointestinal: soft, non-tender, no distention, positive bowel sounds Musculoskeletal: no edema, pulses present Neurological: non-focal, moves all 4 limbs Psychiatric: normal affect, A&O x 3 Skin: no rash, normal turgor Dx/Plan (1) Fracture of right iliac crest Code(s): S32.301A - UNSP FRACTURE OF RIGHT ILIUM, INIT FOR CLOS FX Status: Acute Qualifiers: Encounter type: subsequent encounter Fracture type: closed Comment: Stable. Pathological fracture- shceduled for radiation therapy. (2) Esophageal cancer Status: Chronic Qualifiers: Malignant neoplasm of esophagus location: unspecified location Qualified Code(s): C15.9 - Malignant neoplasm of esophagus, unspecified Comment: Stable. s/p chemo and radation therapy. 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 Review of Systems - Medications/Allergies Allergies/Adverse Reactions: Allergies Allergy/AdvReac Type Severity Reaction Status Date / Time chicken derived Allergy Verified 10/04/17 17:53 Medications: Current Medications Acetaminophen (Tylenol) 650 mg PO Q4H PRN PRN Reason: Headache/Fever or Pain Acetaminophen/Codeine Phosphate (Tylenol #3) 1 tab PO Q6H PRN PRN Reason: Pain Hydrocodone Bitart/Acetaminophen ([place] 7.5/325) 1 tab PO Q4H PRN PRN Reason: Moderate Pain (4-6) Last Admin: 10/19/17 01:04 Dose: 1 tab Dexamethasone (Decadron) 4 mg PO DAILY [facility] Last Admin: 10/19/17 08:16 Dose: 4 mg Docusate Sodium (Colace) 100 mg PO BID [facility] Last Admin: 10/19/17 08:16 Dose: 100 mg Enoxaparin Sodium (Lovenox) 40 mg SC 0900 [facility] Last Admin: 10/19/17 08:18 Dose: 40 mg Lactulose (Lactulose) 20 gm PO DAILYPRN PRN PRN Reason: Constipation Lorazepam (Ativan) 0.5 mg PO QIDPRN PRN PRN Reason: Anxiety Last Admin: 10/18/17 21:35 Dose: 0.5 mg Magnesium Hydroxide (Milk Of Magnesium) 30 ml PO DAILYPRN PRN PRN Reason: Constipation Morphine Sulfate (Morphine) 2 mg SLOW IVP Q4H PRN PRN Reason: Severe Pain (7-10) Last Admin: 10/18/17 15:04 Dose: 2 mg Morphine Sulfate (Ms Contin) 30 mg PO BID [facility] Last Admin: 10/19/17 08:17 Dose: 30 mg Pantoprazole Sodium (Protonix) 40 mg PO BID [facility] Last Admin: 10/19/17 08:16 Dose: 40 mg Polyethylene Glycol (Miralax) 17 gm PO DAILY [facility] Last Admin: 10/19/17 08:17 Dose: 17 gm Potassium Chloride (K-Dur) 40 meq PO BID-[facility] Stop: 10/19/17 17:01 Last Admin: 10/19/17 08:16 Dose: 40 meq Sodium Chloride (Flush - Normal Saline) 10 ml IVF Q12HR [facility] Last Admin: 10/19/17 08:19 Dose: 10 ml Sodium Chloride (Flush - Normal Saline) 10 ml IVF PRN PRN PRN Reason: Saline Flush
[2017-10-19] MEDS: Lorazepam 0.5 MG TAB PO PRN (21:09)
[2017-10-20] MEDS ORDERED: Ondansetron ODT 4 MG TAB PO PRN (03:54)
[2017-10-20] MEDS: Ondansetron HCl/PF 4 MG/2 ML Vial IVP PRN (04:23)
[2017-10-20 06:35] LABS: Mean Corpuscular HGB CONC 33.1 g/dL (32.0-36.0); Mean Corpuscular Hemoglobin 25.9 pg (27.0-31.0); Mean Corpuscular Volume 78.1 fl (81.0-99.0); Mean Platelet Volume 9.4 fL (7.4-10.4); Platelet Count 106 thou/uL (130-400); RBC Distribution Width 17.7 % (11.5-14.5); Red Blood Cell (RBC) Count 3.07 mill/uL (4.20-5.40); White Blood Cell (WBC) Count 0.9 thou/uL (4.8-10.8)
[2017-10-20 06:41] LABS: Anion Gap 9 mmol/L (10-20); BUN (Urea Nitrogen) 12 mg/dL (7.0-18.7); Calc. Creatinine Clearance 171 mL/min (70-130); Calcium 7.7 mg/dL (7.8-10.44); Carbon Dioxide 25 mmol/L (22-29); Chloride 103 mmol/L (98-107); Estimated GFR-MDRD Greater than 90; Glucose 82 mg/dL (70-105); Potassium 4.3 mmol/L (3.5-5.1); Sodium 133 mmol/L (136-145)
[2017-10-20 06:49] LABS: MDiff Complete? YES
[2017-10-20 06:50] LABS: Eosinophils 2 % (0-10); Lymphocytes 14 % (21-51); Monocytes 12 % (0-10); Neutrophil 72 % (42-75); PLT Morphology Comment Appears Decreased
[2017-10-20] MEDS: Docusate 100 MG CAP PO SCH ×2 (08:23→23:29)
[2017-10-20] MEDS: Morphine ER 15 MG TAB PO SCH ×2 (08:24→23:30)
[2017-10-20] MEDS: Dexamethasone 4 MG TAB PO SCH (08:24)
[2017-10-20] MEDS: Enoxaparin Sodium 40 MG/0.4 ML SYRINGE SC SCH (08:25)
[2017-10-20] MEDS: Polyethylene Glycol 3350 17 GM Packet PO SCH (08:26)
[2017-10-20] MEDS ORDERED: Meropenem 1 GM in Sterile Water 20 ML SLOW IVP SCH (11:30)
[2017-10-20] MEDS ORDERED: Meropenem 1 GM in Sodium Chloride 0.9% 100 ML IVPB SCH (12:00)
--- NOTE | 2017-10-20 12:07 | PDOC.PN ---
- Subjective Encounter Start Date: 10/20/17 Encounter Start Time: 12:16 Subjective: No complaints. -: No acute events overnight. - Objective MAR Reviewed: Yes Vital Signs & Weight: Vital Signs (12 hours) Temp Pulse Resp BP BP Pulse Ox 10/20/17 11:07 98 10/20/17 10:12 97 10/20/17 10:00 98 10/20/17 09:00 97 10/20/17 08:00 96.7 F L 82 16 98 10/20/17 07:57 96.7 F L 82 16 132/83 98 10/20/17 07:00 95.7 F L 82 16 132/83 98 10/20/17 05:00 98.1 F 89 18 134/77 99 Weight Admit Weight 143 lb Weight 143 lb 4.807 oz I&O: 10/19/17 10/20/17 10/21/17 06:59 06:59 06:59 Intake Total 2140 1200 340 Output Total 1675 1575 Balance 465 -375 340 Result Diagrams: 10/20/17 06:22 10/20/17 06:22 Phys Exam - Physical Examination Constitutional: NAD HEENT: PERRLA, moist MMs, sclera anicteric, oral pharynx no lesions Neck: no JVD, supple, full ROM Respiratory: no wheezing, no rales, no rhonchi, clear to auscultation bilateral Cardiovascular: RRR, no significant murmur, no rub Gastrointestinal: soft, non-tender, no distention, positive bowel sounds Musculoskeletal: no edema, pulses present Neurological: non-focal, moves all 4 limbs Psychiatric: normal affect, A&O x 3 Skin: no rash, normal turgor Dx/Plan (1) Fracture of right iliac crest Code(s): S32.301A - UNSP FRACTURE OF RIGHT ILIUM, INIT FOR CLOS FX Status: Acute Qualifiers: Encounter type: subsequent encounter Fracture type: closed Comment: Stable. Pathological fracture- to have focussed radiation therapy by RadOnc. (2) Esophageal cancer Status: Chronic Qualifiers: Malignant neoplasm of esophagus location: unspecified location Qualified Code(s): C15.9 - Malignant neoplasm of esophagus, unspecified Comment: Stable. s/p chemo and radation therapy. 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 - Plan cont current plan of care, PT/OT, social services assistant, DVT proph w/lovenox Awaiting placement. junior project manager on board. * . Review of Systems - Medications/Allergies Allergies/Adverse Reactions: Allergies Allergy/AdvReac Type Severity Reaction Status Date / Time chicken derived Allergy Verified 10/04/17 17:53 acetaminophen AdvReac Unknown Diarrhea Verified 10/20/17 11:24 [From Tylenol-Codeine] codeine AdvReac Unknown Diarrhea Verified 10/20/17 11:24 [From Tylenol-Codeine] Medications: Current Medications Acetaminophen (Tylenol) 650 mg PO Q4H PRN PRN Reason: Headache/Fever or Pain Acetaminophen/Codeine Phosphate (Tylenol #3) 1 tab PO Q6H PRN PRN Reason: Pain Hydrocodone Bitart/Acetaminophen ([place] 7.5/325) 1 tab PO Q4H PRN PRN Reason: Moderate Pain (4-6) Last Admin: 10/19/17 21:08 Dose: 1 tab Dexamethasone (Decadron) 4 mg PO DAILY [facility] Last Admin: 10/20/17 08:24 Dose: 4 mg Docusate Sodium (Colace) 100 mg PO BID [facility] Last Admin: 10/20/17 08:23 Dose: 100 mg Enoxaparin Sodium (Lovenox) 40 mg SC 0900 [facility] Last Admin: 10/20/17 08:25 Dose: 40 mg Meropenem 1 gm/ Sodium (Chloride) 100 mls @ 200 mls/hr IVPB NOW [facility] Stop: 10/20/17 14:00 Lactulose (Lactulose) 20 gm PO DAILYPRN PRN PRN Reason: Constipation Lorazepam (Ativan) 0.5 mg PO QIDPRN PRN PRN Reason: Anxiety Last Admin: 10/19/17 21:09 Dose: 0.5 mg Magnesium Hydroxide (Milk Of Magnesium) 30 ml PO DAILYPRN PRN PRN Reason: Constipation Morphine Sulfate (Morphine) 2 mg SLOW IVP Q4H PRN PRN Reason: Severe Pain (7-10) Last Admin: 10/18/17 15:04 Dose: 2 mg Morphine Sulfate (Ms Contin) 30 mg PO BID [facility] Last Admin: 10/20/17 08:24 Dose: 30 mg Ondansetron HCl (Zofran Odt) 4 mg PO Q6H PRN PRN Reason: Nausea/Vomiting Ondansetron HCl (Zofran) 4 mg IVP Q6H PRN PRN Reason: Nausea/Vomiting Last Admin: 10/20/17 04:23 Dose: 4 mg Pantoprazole Sodium (Protonix) 40 mg PO BID [facility] Last Admin: 10/20/17 08:24 Dose: 40 mg Polyethylene Glycol (Miralax) 17 gm PO DAILY [facility] Last Admin: 10/20/17 08:26 Dose: 17 gm Sodium Chloride (Flush - Normal Saline) 10 ml IVF Q12HR [facility] Last Admin: 10/20/17 08:27 Dose: 10 ml Sodium Chloride (Flush - Normal Saline) 10 ml IVF PRN PRN PRN Reason: Saline Flush
[2017-10-20] MEDS ORDERED: GRANIX 300 MCG/0.5 ML VIAL SC SCH (12:30)
[2017-10-20] MEDS: HYDROcodone/Acetaminophen 7.5/325 mg Tablet PO PRN ×2 (13:37→23:31)
[2017-10-20 18:23] VITALS: BMI 24.9
[2017-10-20] MEDS: Lorazepam 0.5 MG TAB PO PRN (23:31)
[2017-10-21] MEDS: Ondansetron HCl/PF 4 MG/2 ML Vial IVP PRN (07:21)
[2017-10-21 07:34] LABS: Anion Gap 9 mmol/L (10-20); BUN (Urea Nitrogen) 12 mg/dL (7.0-18.7); Calc. Creatinine Clearance 169 mL/min (70-130); Calcium 7.9 mg/dL (7.8-10.44); Carbon Dioxide 26 mmol/L (22-29); Chloride 102 mmol/L (98-107); Estimated GFR-MDRD Greater than 90; Glucose 82 mg/dL (70-105); Potassium 4.4 mmol/L (3.5-5.1); Sodium 133 mmol/L (136-145)
[2017-10-21 07:37] VITALS: BP 128/81; TEMP 98
[2017-10-21 07:57] LABS: Band 29 % (5-11); Hemoglobin 8.5 g/dL (12.0-16.0); Lymphocytes 16 % (21-51); MDiff Complete? YES; Mean Corpuscular HGB CONC 32.6 g/dL (32.0-36.0); Mean Corpuscular Hemoglobin 25.4 pg (27.0-31.0); Mean Corpuscular Volume 77.9 fl (81.0-99.0); Mean Platelet Volume 9.7 fL (7.4-10.4); Metamyelocyte 6 % (0-0); Monocytes 5 % (0-10); Neutrophil 44 % (42-75); Nucleated RBC 1 % (0); Platelet Count 107 thou/uL (130-400); RBC Distribution Width 18.1 % (11.5-14.5); Red Blood Cell (RBC) Count 3.36 mill/uL (4.20-5.40); Vacuoles SLIGHT; White Blood Cell (WBC) Count 1.3 thou/uL (4.8-10.8)
[2017-10-21] MEDS: Docusate 100 MG CAP PO SCH (08:15)
[2017-10-21] MEDS: Dexamethasone 4 MG TAB PO SCH (08:16)
[2017-10-21] MEDS: Morphine ER 15 MG TAB PO SCH (08:16)
[2017-10-21] MEDS: Polyethylene Glycol 3350 17 GM Packet PO SCH (08:16)
[2017-10-21] MEDS: Enoxaparin Sodium 40 MG/0.4 ML SYRINGE SC SCH (08:18)
[2017-10-21] MEDS ORDERED: GRANIX 300 MCG/0.5 ML VIAL SC SCH (09:00)
--- NOTE | 2017-10-21 16:25 | DIS ---
DATE OF ADMISSION: 10/17/2017 DATE OF DISCHARGE: 10/21/2017 PRIMARY CARE PHYSICIAN: Dr. Anant Esquivel. PRIMARY ONCOLOGIST: Dr. Tasia Moay and Dr. Antolin Kohler. DISCHARGE DIAGNOSES: 1. Metastatic esophageal cancer. 2. Pathologic fracture of the right iliac crest. 3. Status post reinitiation of radiation therapy. 4. Reinitiation of chemotherapy. 5. Gastroesophageal reflux disease. 6. Neutropenia without fever. HOSPITAL COURSE: Ms. Cummings is a pleasant 46-year-old white female with a history of esophageal canc er, metastatic who presented to the emergency department the day of admission with complaints of righ t hip pain. A couple of days prior to admission, she was taking a step down and suddenly heard a pop with subsequ ent 04/24 intractable right hip pain. It was aggravated by motion. She took her home medicines to g et better, but did not, so she presented to the emergency department. There she was worked up and found to have a right iliac crest fracture, pathologic and we were subseq uently called for admit. HOSPITAL COURSE: The patient was seen and examined by Dr. Mora and admitted to the hospital. On cology was consulted, and PT, OT was consulted. The patient was started on [place] and IV morphine for severe pain. The patient was not able to go through [facility] for rehabilitation due to no bed av ailability. Overnight 10/17/2017 to 10/18/2017, patient remained relatively stable. Pain responded to narcotics. Dr. Antolin Kohler with Radiation Oncology saw the patient and agreed to start the patient on radiatio n therapy and recommended Decadron. She was set to start treatments on 10/22/2017. The patient was seen by Ms. Samantha Varela, Nurse Practitioner, with the Oncology team. She did receive her weekly Tax ol 3 days ago and was set up for outpatient salvage chemotherapy. The patient did well from 10/18/2017 to 10/19/2017 with symptoms under fair control. She had no fevers or chills. White blood cell count did trend down some due to her recent Taxol. By 10/20/2017, she was neutropenic. She was started on filgrastim and watch. Pain was controlled an d on today on 10/21/2017, the patient was stable for outpatient followup. She had appointments for h er radiation therapy started on 10/22/2017 and appointment 4 days from now for her next dose of Taxol . DISCHARGE CONDITION: Stable. DISPOSITION: Discharged home via private vehicle with home health care and PT, OT. DISCHARGE MEDICATIONS: 1. Dexamethasone 4 mg p.o. daily. 2. Colace 100 mg p.o. b.i.d. 3. Hydrocodone/APAP 7.5/325 one p.o. q.4 h. p.r.n. pain. 4. Lansoprazole 30 mg p.o. b.i.d. 5. Lorazepam 1 mg p.o. q.i.d. p.r.n. 6. MS Contin 30 mg p.o. b.i.d. 7. MiraLax 17 grams daily. 8. Tylenol #3 as needed. FOLLOWUP APPOINTMENTS 1. Oncology this , on 10/25/2017 and Radiation Oncology for scheduled treatment on 8. 2. Dr. Esquivel within a week. DISCHARGE ACTIVITY: Per orthopedic and cardiopulmonary limits. DISCHARGE DIET: Heart healthy recommended.
[2017-10-21] MEDS: HYDROcodone/Acetaminophen 7.5/325 mg Tablet PO PRN (17:57)
== END 2017-10-21 18:29 | disposition home health service (06) | DRG 543 ==
LOC: ERS 09:13 → OBSVTOIN 18:58 → ONC 18:58
PROVIDERS: ADMIT Internal Medicine Hematology & Oncology; ATTEND Internal Medicine Hematology & Oncology
DX: M84.550A Pathological fracture in neoplastic disease, pelvis, initial encounter for fracture (principal); C15.9 Malignant neoplasm of esophagus, unspecified; C78.00 Secondary malignant neoplasm of unspecified lung; C79.51 Secondary malignant neoplasm of bone; D61.818 Other pancytopenia; C79.9 Secondary malignant neoplasm of unspecified site; K21.9 Gastro-esophageal reflux disease without esophagitis; Z51.11 Encounter for antineoplastic chemotherapy; D63.0 Anemia in neoplastic disease; G89.3 Neoplasm related pain (acute) (chronic)
CPT/HCPCS: 36415; 72192; 77014; 77290; 80048; 83735; 85025; 85027; A4216; G8978-GP-CJ; G8979-GP-CI; G8987-GO-CK; G8988-GO-CI; J1100; J1442; J1642; J1650; J2185; J2270; J2405; J7050; J8540; J9267

== ENCOUNTER 2017-11-06 09:31 | Outpatient (CLI) | payer BC ==
--- NOTE | 2017-11-06 09:53 | RAD ---
CHEST TWO VIEWS: History: Dyspnea. Comparison: 10-03-17 FINDINGS: Cardiac silhouette is unremarkable. Pulmonary vasculature is upper limits of normal. Reticular nodula r parenchymal opacities throughout each lung are much less pronounced than on the prior exam. No loba r consolidation or pneumothorax. Minimal fluid is present within the major fissures on the lateral vi ew. Right internal jugular Mediport remains in place. IMPRESSION: 1. Significantly improved aeration of the lungs. Borderline coronary vascular congestion remains, but significantly improved. POS: [facility]
== END 2017-11-06 09:32 | disposition home or self-care (01) ==
LOC: RAD 09:31
PROVIDERS: ATTEND Internal Medicine
DX: R06.00 Dyspnea, unspecified (principal); R91.8 Other nonspecific abnormal finding of lung field
CPT/HCPCS: 71046

== ENCOUNTER 2017-11-22 11:17 | Day surgery (SDC) | payer BC ==
[2017-11-22] MEDS ORDERED: Acetaminophen 500 MG TAB PO SCH (12:00)
[2017-11-22] MEDS ORDERED: diphenhydrAMINE 25 MG CAP PO SCH (12:00)
[2017-11-22 15:46] LABS: Hemoglobin 7.7 g/dL (12.0-16.0)
[2017-11-22 18:27] VITALS: BP 110/70; TEMP 98.7
== END 2017-11-22 19:24 | disposition home or self-care (01) ==
LOC: ONC/OP 11:17
PROVIDERS: ATTEND Internal Medicine Hematology & Oncology
PROC: 30233N1 Transfusion of Nonautologous Red Blood Cells into Peripheral Vein, Percutaneous Approach (ICD-10-PCS; principal; 2017-11-22)
DX: C15.9 Malignant neoplasm of esophagus, unspecified (principal); D63.0 Anemia in neoplastic disease; D69.6 Thrombocytopenia, unspecified; M19.90 Unspecified osteoarthritis, unspecified site; K21.9 Gastro-esophageal reflux disease without esophagitis; Z98.890 Other specified postprocedural states; Z91.012 Allergy to eggs; Z91.018 Allergy to other foods; Z79.899 Other long term (current) drug therapy
CPT/HCPCS: 36430; 85014; 85018; 86850; 86900; 86901; P9016

== ENCOUNTER 2017-12-04 08:25 | Outpatient (CLI) | payer BC ==
[2017-12-04] MEDS ORDERED: ISOVUE-370 76%-LOCM 1 ML ONE (13:57)
== END 2017-12-04 08:26 | disposition home or self-care (01) ==
LOC: BICCT 08:25
PROVIDERS: ATTEND Internal Medicine Hematology & Oncology
DX: C15.8 Malignant neoplasm of overlapping sites of esophagus (principal); C16.0 Malignant neoplasm of cardia; J90 Pleural effusion, not elsewhere classified; E27.8 Other specified disorders of adrenal gland; R59.0 Localized enlarged lymph nodes; R91.1 Solitary pulmonary nodule
CPT/HCPCS: 71260; 74177

== ENCOUNTER 2017-12-07 14:38 | Emergency (ER) | payer BC ==
[2017-12-07 15:41] LABS: #Lymphocytes 0.8 thou/uL (1.20-3.40); #Monocytes 0.3 thou/uL (0.11-0.59); #Neutrophils 14.5 thou/uL (1.40-6.50); %Eosinophils 0.1 % (0.0-10.0); %Lymphocytes 4.8 % (21.0-51.0); %Monocytes 2.1 % (0.0-10.0); Hemoglobin 9.3 g/dL (12.0-16.0); Mean Corpuscular HGB CONC 32.8 g/dL (32.0-36.0); Mean Corpuscular Hemoglobin 29.7 pg (27.0-31.0); Mean Corpuscular Volume 90.6 fl (81.0-99.0); Mean Platelet Volume 9.7 fL (7.4-10.4); Platelet Count 102 thou/uL (130-400); RBC Distribution Width 21.9 % (11.5-14.5); Red Blood Cell (RBC) Count 3.12 mill/uL (4.20-5.40); White Blood Cell (WBC) Count 15.6 thou/uL (4.8-10.8)
--- NOTE | 2017-12-07 15:57 | RAD ---
CHEST 2 VIEWS: HISTORY: Dyspnea. COMPARISON: 11/06/17. FINDINGS: Cardiac silhouette and pulmonary vasculature are unremarkable. Mediastinum midline with right leadership program internship al jugular Port-A-Cath. No lobar consolidation, pneumothorax, or pleural fluid. IMPRESSION: No active cardiopulmonary abnormalities are demonstrated. POS: [facility]
[2017-12-07 16:02] LABS: ALT (SGPT) 16 U/L (8-55); AST (SGOT) 26 U/L (5-34); Albumin 3.1 g/dL (3.5-5.0); Alkaline Phosphatase 156 U/L (40-150); Anion Gap 12 mmol/L (10-20); BUN (Urea Nitrogen) 7 mg/dL (7.0-18.7); Bilirubin, Total 0.9 mg/dL (0.2-1.2); CK (CPK) 18 U/L (29-168); Calc. Creatinine Clearance 0 mL/min (70-130); Calcium 8.3 mg/dL (7.8-10.44); Carbon Dioxide 22 mmol/L (22-29); Chloride 103 mmol/L (98-107); Estimated GFR-MDRD Greater than 90; Globulin 2.4 g/dL (2.4-3.5); Glucose 103 mg/dL (70-105); Protein, Total 5.5 g/dL (6.0-8.3); Sodium 134 mmol/L (136-145)
[2017-12-07 16:06] LABS: CKMB 0.2 ng/mL (0-6.6); Troponin I Less than 0.010 ng/mL (< 0.028)
[2017-12-07] MEDS ORDERED: Potassium Chloride 20 MEQ TAB ONE (17:16)
--- NOTE | 2017-12-07 18:31 | CT ---
CTA CHEST WITH 3D VOLUME RENDERING: INDICATIONS: Short of breath. Orthopnea. COMPARISON: 10/05/2017 FINDINGS: There is heterogeneity of contrast bolus of the pulmonary arteries, which does limit sensitivity. No definite enlarged central pulmonary embolus is seen. The thoracic aorta is nonaneurysmal. There is thickening of the esophagus with a hiatal hernia present, as well as fluid-filled distention of the esophagus. Correlate for evidence of reflux and associated esophagitis. Periesophageal edema is als o seen, as well as adenopathy. There is bilateral mild to moderate pleural fluid. There are scatter ed linear parenchymal densities, as well as interstitial prominence and mild ground glass opacificati on, including ground glass alveolar opacities and ground glass nodularity bilaterally, nonspecific. There is no pneumothorax. Cholecystectomy clips are present. When comparing the prior exam, there h as been marked interval improvement with regard to bilateral parenchymal opacities. Pleural fluid vo lume has increased. Adenopathy, notably at the left axilla, has improved. Redemonstration of bilate ral adrenal masses. IMPRESSION: 1. No definite large central pulmonary embolus identified, within limitations. 2. Redemonstration of findings indicative of esophageal malignancy with regional spread of disease, as discussed above. 3. Interval improvement with regard to bilateral areas of pulmonary parenchymal mass-like consolidat ion, with interval increase in volume of bilateral pleural fluid. 4. Redemonstration of bilateral adrenal masses. 5. Improved adenopathy. POS: [facility]
== END 2017-12-07 18:52 | disposition home or self-care (01) ==
LOC: ERS 14:38
DX: R06.02 Shortness of breath (principal); Z79.891 Long term (current) use of opiate analgesic; Z79.899 Other long term (current) drug therapy
CPT/HCPCS: 36415; 71046; 71275; 80053; 82550; 82553; 84484; 85025; 85379; 87040; 93005; 94760

== ENCOUNTER 2017-12-13 16:28 | Observation (INO) | payer BC, OTHER ==
[2017-12-13 16:53] LABS: #Eosinphils 0.1 thou/uL (0.0-0.7); #Lymphocytes 0.7 thou/uL (1.20-3.40); #Monocytes 0.1 thou/uL (0.11-0.59); #Neutrophils 7.7 thou/uL (1.40-6.50); %Basophils 0.1 % (0.0-1.0); %Eosinophils 0.8 % (0.0-10.0); %Lymphocytes 8.1 % (21.0-51.0); %Monocytes 0.6 % (0.0-10.0); %Neutrophils 90.4 % (42.0-75.0); Hemoglobin 10.4 g/dL (12.0-16.0); Mean Corpuscular Hemoglobin 30.6 pg (27.0-31.0); Mean Corpuscular Volume 89.9 fl (81.0-99.0); Mean Platelet Volume 9.9 fL (7.4-10.4); Platelet Count 121 thou/uL (130-400); RBC Distribution Width 21.2 % (11.5-14.5); Red Blood Cell (RBC) Count 3.39 mill/uL (4.20-5.40); White Blood Cell (WBC) Count 8.5 thou/uL (4.8-10.8)
[2017-12-13 17:16] LABS: ALT (SGPT) 24 U/L (8-55); AST (SGOT) 30 U/L (5-34); Alkaline Phosphatase 186 U/L (40-150); Anion Gap 15 mmol/L (10-20); BUN (Urea Nitrogen) 9 mg/dL (7.0-18.7); Bilirubin, Total 1.4 mg/dL (0.2-1.2); CK (CPK) 15 U/L (29-168); Calc. Creatinine Clearance 0 mL/min (70-130); Calcium 10.1 mg/dL (7.8-10.44); Carbon Dioxide 22 mmol/L (22-29); Chloride 99 mmol/L (98-107); Estimated GFR-MDRD Greater than 90; Globulin 3.2 g/dL (2.4-3.5); Glucose 190 mg/dL (70-105); Protein, Total 7.2 g/dL (6.0-8.3); Sodium 131 mmol/L (136-145)
[2017-12-13 17:21] LABS: CKMB 0.4 ng/mL (0-6.6); Troponin I Less than 0.010 ng/mL (< 0.028)
--- NOTE | 2017-12-13 17:23 | RAD ---
SINGLE VIEW OF THE CHEST: 12/13/17 COMPARISON: 05/03/17. HISTORY: Dyspnea. Fluid on lungs. FINDINGS: Single view of the chest show normal sized cardiomediastinal silhouette. The Mediport is unchanged in position. There is no evidence of consolidation, mass, or pleural effusion. IMPRESSION: No evidence of acute cardiopulmonary disease. POS: [facility]
[2017-12-13] MEDS ORDERED: Morphine 4 MG/ML VIAL ONE (17:43)
[2017-12-13] MEDS ORDERED: Piperacillin/Tazobactam 4.5 GM VIAL ONE (18:16)
[2017-12-13 18:56] LABS: Bilirubin Negative (Negative); Blood, Urine Negative (Negative); Clarity CLEAR (Clear); Glucose, Urine (Dipstick) Negative (Negative); Leukocyte Negative (Negative); Nitrite Negative (Negative); Protein, Urine (Dipstick) Negative (Neg-Trace); pH, Urine 7.5 (5.0-9.0)
[2017-12-13] MEDS ORDERED: Acetaminophen 325 MG TAB PO PRN (19:49)
[2017-12-13] MEDS ORDERED: HYDROcodone/Acetaminophen 5/325 mg Tablet PO PRN (19:49)
--- NOTE | 2017-12-13 20:20 | CT ---
CTA OF THE CHEST WITH CONTRAST 12/13/17 COMPARISON: 12/07/17 HISTORY: Dyspnea for two to three days. Patient has metastatic esophageal cancer and is on chemotherapy. TECHNIQUE: Multiple contiguous axial images were obtained in a CTA of the chest with contrast per pulmonary embo lism protocol. 3D oblique MIP reformats and direct coronal reformats were performed. FINDINGS: The pulmonary arteries are well opacified without filling defect to suggest pulmonary emboli. The hea rt is normal in size. There is a moderate hiatal hernia. There is thickening of the wall of the distal esophagus. Small bilateral pleural effusions are relatively stable compared to the prior examination. There is s table atelectasis in the medial aspect of the right upper lobe. Atelectasis is also seen in both lung bases. No focal infiltrates are seen. The patient is status post cholecystectomy. Nonspecific hypodensities are seen in the liver which do not meet criteria for simple cysts. The spleen is enlarged. There are bilateral adrenal masses. The l argest is seen in the left adrenal gland measuring 2.6 cm in size. The patient's Mediport is unchanged in position. The chest wall soft tissues are unremarkable. No enl arged axillary lymph nodes are seen. The bones are unremarkable. IMPRESSION: 1. No evidence of pulmonary thromboembolism. 2. Bilateral pleural effusions. 3. Thickening of the distal esophagus may represent the patient's known esophageal malignancy. 4. There appear to be metastatic lesions in the liver. 5. Bilateral adrenal fullness may represent adrenal metastatic disease. POS: [facility]
[2017-12-13 21:03] LABS: Lactic Acid 1.9 mmol/L (0.5-2.2)
[2017-12-13 21:12] VITALS: BMI 21.7
[2017-12-13] MEDS ORDERED: Ondansetron ODT 4 MG TAB SL PRN (21:15)
[2017-12-13] MEDS ORDERED: Ondansetron PF 4 MG/2 ML Vial IVP PRN (21:15)
[2017-12-13] MEDS: Famotidine/PF 20 mg/2ml Vial SLOW IVP SCH (23:56)
[2017-12-13] MEDS: Sodium Chloride 0.9% 1,000 ML IV SCH (23:57)
[2017-12-13] MEDS ORDERED: Piperacillin/Tazobactam 3.375 GM in Sodium Chloride 0.9% 100 ML IVPB SCH (23:59)
[2017-12-14] MEDS: Morphine 4 MG/ML VIAL SLOW IVP PRN ×2 (00:02→04:25)
--- NOTE | 2017-12-14 00:50 | HP ---
CHIEF COMPLAINT: Shortness of breath. HISTORY OF PRESENT ILLNESS: She is a 46-year-old woman with history of recently diagnosed esophageal cancer. She went to see Dr. Hendricks, glove printer when she has been having short of breath for the last 1 week often persistent short of breath on exertion. She has been getting chemo for the esopha geal cancer. She went to see glove printer today and over there, she was short of breath, she is int o the hospital for further evaluation. When she comes to ER, tachycardic at 123, blood pressure 135/ 88, respirations 34, temperature 97.6 and she was saturating 100% on room air. In the ER, chest x-ra y did not show any infection and she has leukocytosis with possibly ruling out PE versus chemo induce d shortness of breath. PAST MEDICAL HISTORY: As mentioned, recently diagnosed esophageal cancer, pancreatitis, and anemia. PAST SURGICAL HISTORY: Cholecystectomy, MediPort, left knee surgery. PSYCHIATRIC HISTORY: No history of suicide ideation. SOCIAL HISTORY: Patient drinks alcohol rarely. Patient denied drug use, no smoking history. MEDICATIONS TAKEN AT HOME: Phenergan 25 oral, lorazepam 0.5 oral, Zofran p.r.n., Lasix 40 mg daily, morphine extended release 30 mg daily. ALLERGIES: She is not allergic to any medications. REVIEW OF SYSTEMS: She denies any fever, any malaise. She denies any ear, nose, throat normal. Car diovascular: She does have some chest pain, dyspnea on exertion. No edema, no syncopal episode, no palpitations. Respiratory: She is short of breath, some wheezing. Gastrointestinal: No nausea, no vomiting, no abdominal pain. Genitourinary: No dysuria, no frequency. Musculoskeletal: Negative musculoskeletal system. Skin: Negative skin review of system. Neurological: Negative review of sy stems denies headache. Hematologic: Normal. Lymphatic: Denies any blood clotting. Allergy/Immuno logy: No allergies. PHYSICAL EXAMINATION: GENERAL: She is a young woman lying in no distress. VITAL SIGNS: Her pulse running 110. Blood pressure 130/80, respiration 20, temperature 98.4. HEAD, EARS, EYES, NOSE, THROAT: Normocephalic. Pupils are round and reactive. Extraocular movement s are intact. Ears, nose, and throat normal. Neck mucosa moist. NECK: Supple, no JVD, no thyromegaly, no lymphadenopathy. CHEST: Diminished breath sounds. No wheeze, no rhonchi noted. There is no infiltrate. CARDIOVASCULAR: S1, S2 audible. No S3, S4. ABDOMEN: Soft. Bowel sounds audible. No organomegaly, no guarding. EXTREMITIES: No pedal edema. No sign of clubbing. SKIN: Warm and dry. NEUROLOGIC: She is alert x2. No focal deficit. LABORATORY DATA: BNP 10. CK-MB 0.4, troponin less than 0.01. Sodium 131, potassium 5.0, chloride 9 0, carbon dioxide 22, anion gap 15, BUN 9, creatinine 0.6, glucose 190, calcium 10.1, bilirubin 1.4, protein 7.2, albumin 4.0, globulin 3.2, alkaline phosphatase 186, AST 30, ALT 24, lactate 3.2. Hemog lobin 10.5, platelets 121,000, hematocrit 30.5, MCV 89. ASSESSMENT AND PLAN: 1. Dyspnea on exertion, possible pulmonary embolism is unlikely could be chemotherapy induced dyspne a. We will get an echocardiogram to rule out any pericardial effusion. A CT scan of the chest to ru le out any pulmonary embolism. Nebulizer. 2. Sepsis with possible sepsis, high lactate acid with no source of infection. We continue to monit or IV fluid cautiously and give Zosyn 3.75 q.6 hourly. 3. Hyponatremia, mild hypovolemia. IV fluids and monitor. 4. Thrombocytopenia, possible chemotherapy induced we will monitor it. 5. Deep vein thrombosis prophylaxis will be sequential compression devices.
[2017-12-14] MEDS: Sodium Chloride 0.9% 1,000 ML IV SCH (06:09)
[2017-12-14] MEDS: Piperacillin/Tazobactam 3.375 GM in Sodium Chloride 0.9% 100 ML IVPB SCH ×2 (06:10→12:36)
[2017-12-14 06:34] LABS: #Lymphocytes 0.4 thou/uL (1.20-3.40); #Monocytes 0.2 thou/uL (0.11-0.59); #Neutrophils 3.1 thou/uL (1.40-6.50); %Basophils 0.1 % (0.0-1.0); %Eosinophils 0.8 % (0.0-10.0); %Monocytes 4.9 % (0.0-10.0); %Neutrophils 83.3 % (42.0-75.0); Hemoglobin 7.2 g/dL (12.0-16.0); Mean Corpuscular HGB CONC 33.4 g/dL (32.0-36.0); Mean Corpuscular Hemoglobin 30.4 pg (27.0-31.0); Mean Corpuscular Volume 91.2 fl (81.0-99.0); Mean Platelet Volume 9.6 fL (7.4-10.4); PLT Morphology Comment Appears Decreased; Platelet Count 66 thou/uL (130-400); RBC Distribution Width 21.2 % (11.5-14.5); Red Blood Cell (RBC) Count 2.35 mill/uL (4.20-5.40); White Blood Cell (WBC) Count 3.8 thou/uL (4.8-10.8)
[2017-12-14 06:43] LABS: ALT (SGPT) 21 U/L (8-55); AST (SGOT) 24 U/L (5-34); Albumin 3.1 g/dL (3.5-5.0); Alkaline Phosphatase 130 U/L (40-150); Anion Gap 10 mmol/L (10-20); BUN (Urea Nitrogen) 11 mg/dL (7.0-18.7); Bilirubin, Total 0.9 mg/dL (0.2-1.2); Calc. Creatinine Clearance 107 mL/min (70-130); Calcium 8.1 mg/dL (7.8-10.44); Carbon Dioxide 24 mmol/L (22-29); Chloride 103 mmol/L (98-107); Estimated GFR-MDRD Greater than 90; Globulin 2.3 g/dL (2.4-3.5); Glucose 93 mg/dL (70-105); Potassium 4.5 mmol/L (3.5-5.1); Protein, Total 5.4 g/dL (6.0-8.3); Sodium 132 mmol/L (136-145)
[2017-12-14] MEDS ORDERED: Morphine 2 MG/ML SYRINGE SLOW IVP PRN (09:12)
[2017-12-14] MEDS: HYDROcodone/Acetaminophen 10/325 mg Tablet PO PRN ×3 (09:22→18:39)
[2017-12-14 10:30] LABS: Actual Bicarbonate (HCO3a) 20.9 mEq/L (22-26); Base Excess (BEa) -3.6 mEq/L (0 (+/-) 2.5); CO2 Tension 34.7 mmHg (35.0-45.0); Hematocrit-ABG 24.3 % (36.0-47.0); O2 Tension (PaO2) 91.9 mmHg (80.0-100.0)
[2017-12-14 10:31] LABS: ALV-art Gradient 14.455 (0-20); Hemoglobin (Hb) 6.9 g/dL (12.0-16.0); Puncture Site RBA
[2017-12-14] MEDS: Famotidine/PF 20 mg/2ml Vial SLOW IVP SCH (12:21)
--- NOTE | 2017-12-14 13:30 | PDOC.PN ---
- Subjective Encounter Start Date: 12/14/17 Encounter Start Time: 14:00 -: old records requested/rev Pt seen adn examined, chart reviewe din its entirety, this is my first visit with this patient. admitted for SOB post chemo. Hgb down post hydrations, CTA neg for PE. echo pending. Discussed with onc tream - pt always gets SOB after chemo. No f/c, no n/v/d/c, no cough or sputum All systems reviewed and neg x as above - Objective MAR Reviewed: Yes Vital Signs & Weight: Vital Signs (12 hours) Temp Pulse Resp BP BP Pulse Ox 12/14/17 11:00 97.8 F 91 30 H 123/75 99 12/14/17 08:00 97.8 F 91 30 H 12/14/17 07:00 97.9 F 91 14 129/77 99 12/14/17 03:00 97.9 F 95 12 112/79 98 I&O: 12/13/17 12/14/17 12/15/17 06:59 06:59 06:59 Intake Total 1645 Balance 1645 Result Diagrams: 12/14/17 06:15 12/14/17 06:15 Radiology Reviewed by me: Yes EKG Reviewed by me: Yes Phys Exam - Physical Examination Constitutional: NAD HEENT: PERRLA, moist MMs, sclera anicteric, oral pharynx no lesions Neck: no nodes, no JVD, supple, full ROM bibasilar crackles, dullness to right base Cardiovascular: RRR, no significant murmur, no rub tachycardia better Gastrointestinal: soft, non-tender, no distention, positive bowel sounds Musculoskeletal: no edema, pulses present Neurological: non-focal, normal sensation, moves all 4 limbs Lymphatic: no nodes Psychiatric: normal affect, A&O x 3 Skin: no rash, normal turgor, cap refill <2 seconds Dx/Plan (1) Dyspnea Code(s): R06.00 - DYSPNEA, UNSPECIFIED Status: Acute Qualifiers: Dyspnea type: dyspnea on exertion Qualified Code(s): R06.09 - Other forms of dyspnea Comment: CTA negative, vitals better after hydration. suspect symptomatic anemia and pleural effusions. follow up on echo. if stable, may discharge (2) Esophageal cancer Status: Chronic Qualifiers: Malignant neoplasm of esophagus location: unspecified location Qualified Code(s): C15.9 - Malignant neoplasm of esophagus, unspecified Comment: Stable. s/p chemo and radation therapy. 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 recheck H/H this afternoon to make sure no still dropping - Plan cont current plan of care * . possible discharge this afternoon or tomorrow if echo ok
[2017-12-14 15:00] LABS: Hemoglobin 7.1 g/dL (12.0-16.0)
--- NOTE | 2017-12-14 15:56 | DIS ---
DATE OF ADMISSION: 12/13/2017 DATE OF DISCHARGE: 12/14/2017 PRIMARY CARE PHYSICIAN: Dr. Anant Esquivel. PRIMARY ONCOLOGIST: Dr. Moya. DISCHARGE DIAGNOSES: 1. Dyspnea. 2. Pancytopenia secondary to chemotherapy. 3. 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 4. Gastroesophageal reflux disease. 5. Dehydration. 6. Symptomatic anemia secondary to chemotherapy. CONSULTATIONS: None. PROCEDURES: CT angiogram of the thorax negative for pulmonary embolism. HISTORY AND PHYSICAL: Ms. Cummings is a 46-year-old female with metastatic esophageal cancer who prese nts to the emergency department on the day of admission for shortness of breath. She gets short of b reath regular when she gets chemo. She started seeing a political reporter and started having shortness o f breath for about 1 week with dyspnea on exertion. She was sent to the ER, she was tachycardic at 1 23, blood pressure was normal, respiratory rate 34, temperature was 97.6, she was satting 100% on ivan m air. She was subsequently admitted for workup. HOSPITAL COURSE: The patient was seen and examined by Dr. Sushant Vega. She was placed in observat ion. CT angiogram was done and it was negative. A 2D echocardiogram was done, which showed normal E F. The patient does have what looks to be a tricuspid regurgitation. Repeat H&H after hydration kaal esparza showed a hemoglobin drop from 10.6-7.2. Repeat hemoglobin 12 hours later was still 7.1. She was otherwise stable for discharge. Breathing much better and was stable and was asked to go home. PHYSICAL EXAMINATION: VITAL SIGNS: The patient was seen and examined on the day of discharge. Discharge plan and disposit ion discussed with the patient's mother face to face at the bedside. DISCHARGE MEDICATIONS: Resume her medications: 1. Varubi 90 mg p.o. p.r.n. 2. Phenergan 25 mg p.o. q.6 hours p.r.n. 3. Compazine 10 mg p.o. q.4 hours p.r.n. nausea. 4. Zofran 8 mg p.o. q.8 hours p.r.n. nausea. 5. Morphine sulphate immediate release 50 mg p.o. q.4 hours p.r.n. severe pain. 6. MS Contin 30 mg p.o. b.i.d. 5. Lorazepam 0.5 mg tablets 1 p.o. q.6 hours p.r.n. anxiety. 6. Hydrocodone/APAP 1-2 tablets p.o. q.4 hours p.r.n. pain. FOLLOWUP APPOINTMENTS: 1. Primary care physician within a week. 2. Dr. Moya as scheduled. DISCHARGE CONDITION: Stable. DISPOSITION: Discharged home via private vehicle. DISCHARGE ACTIVITY: Per cardiopulmonary limits. DISCHARGE DIET: Heart healthy recommended.
--- NOTE | 2017-12-14 20:51 | CON ---
DATE OF CONSULTATION: 12/14/2017 SERVICE: Pulmonary Medicine. REASON FOR CONSULTATION: Dyspnea. HISTORY OF PRESENT ILLNESS: The patient is a 46-year-old white female with past medical history significant for widely metastatic adenocarcinoma of the esophagus. She was in her usual state of health until she started developing dyspnea on exertion. This was progressive in nature, it came on over a period of several weeks if not months. Ultimately, she was seen by her oncologist who ordered a CT PE protocol because of resting tachycardia, though she had no hypoxemia. On the CT, there were some small pleural effusions. She was subsequently sent to my clinic for pleural effusions. We tried to give her a little bit of diuretics, but apparently she had increasing respiratory discomfort and presented to the Emergency Department on . She denies any current fevers, chills, nausea or vomiting. She is not coughing up any sputum. She has no abdominal discomfort and is tolerating p.o. for the most part. She is not having any diarrhea. There are no new hot, red, swollen joints. PAST MEDICAL HISTORY: 1. Esophageal cancer, widely metastatic. 2. Chronic anemia. PAST SURGICAL HISTORY: 1. Cholecystectomy. 2. MediPort placement. 3. Left knee surgery. SOCIAL HISTORY: Negative for alcohol, tobacco or illicit drug use. She has no exposure to any chemicals, dust asbestos or tuberculosis. FAMILY HISTORY: Noncontributory. ALLERGIES: No known drug allergies. MEDICATIONS: List of her inpatient medications were reviewed. A couple of small updates were made. REVIEW OF SYSTEMS: General, head, ears, eyes, nose, throat, cardiovascular, respiratory, GI, , musculoskeletal, neurologic and skin is negative except as mentioned in the HPI. PHYSICAL EXAMINATION: VITAL SIGNS: Afebrile, pulse 91, blood pressure 109/67, respirations 12, saturation 100% on room air. GENERAL: Patient is awake, alert, no apparent distress. LUNGS: Excellent air entry bilaterally. There is no prolonged expiratory phase. I really do not hear any wheezing or rhonchi. There is certainly no crackles present. HEART: Has normal rate, regular. ABDOMEN: Soft, nontender, nondistended. Bowel sounds are positive. MUSCULOSKELETAL: No cyanosis or clubbing. There is no pitting in the bilateral lower extremities. NEUROLOGIC: Grossly nonfocal. LABORATORY DATA: Hemoglobin 7.1. A pH 7.4, pCO2 of 35, pO2 of 92. This was performed on room air. Basic metabolic profile and liver function studies are unremarkable. BNP is below assay limit. Troponin is also negative. Lactate was 3.2, likely from a touch of dehydration, lactate 1.9. Urinalysis is unremarkable. Blood cultures x2 are negative. IMAGIN. Chest x-ray demonstrates no acute cardiopulmonary abnormality. 2. CT of the chest demonstrates small bilateral pleural effusions. The left is ever so slightly larger than the right. There is no pulmonary embolism. I do not appreciate any pleural parenchymal abnormality. The left and right atria are slightly enlarged. ASSESSMENT: 1. Tachycardia. 2. Dyspnea with no clear organic cause. 3. Pleural effusion, bilateral with history of prior thoracentesis. DISCUSSION AND PLAN: When I saw the patient in my clinic, she had elevated JVD. My fear was for possible restrictive cardiovascular disease, particularly if she did not respond to Lasix. After a dose of Lasix, she felt much worse and presented to the Emergency Department. If the echocardiogram does not demonstrate restrictive morphology, she will be stable for transition out of the hospital. In the meantime, we will give her a unit of blood for her anemia. I will have her return to clinic on an as needed basis. I really do not think these pleural effusions are contributing in any way to her dyspnea because they are quite small and there is no associated hypoxemia. Pulmonary will continue to follow along as long as she remains in house, but from my perspective, she is stable for transition out of the hospital, provided, she does not have restrictive pathology on echo. 70 minutes have been devoted to this patient in various activities. I personally reviewed all imaging studies and laboratory data noted within this document. For fifty percent of this time, I was interacting with the patient at the bedside or coordinating care with the care team. For the remainder of the time I was immediately available to the patient in the hospital unit. GUILLERMO
[2017-12-14 21:02] VITALS: TEMP 98.5
[2017-12-14 21:57] VITALS: BP 112/63
--- NOTE | 2017-12-20 12:49 | EKG ---
Test Reason : Blood Pressure : / mmHG Vent. Rate : 115 BPM Atrial Rate : 115 BPM P-R Int : 146 ms QRS Dur : 080 ms QT Int : 336 ms P-R-T Axes : 041 018 136 degrees QTc Int : 464 ms Sinus tachycardia Possible Left atrial enlargement Cannot rule out Anterior infarct , age undetermined Abnormal ECG Confirmed by YUDELKA CABRERA ([id number]), manager editorial NICHOLAS BURGER ([id number]) on 12/20/2017 12:48:56 PM Referred By: ERMD Confirmed By:YUDELKA CABRERA
== END 2017-12-14 21:55 | disposition home or self-care (01) ==
LOC: ERS 16:28 → ONC 20:42
PROVIDERS: ADMIT Internal Medicine; ATTEND Internal Medicine
DX: R06.02 Shortness of breath (principal); J90 Pleural effusion, not elsewhere classified; R00.0 Tachycardia, unspecified; D61.810 Antineoplastic chemotherapy induced pancytopenia; C15.9 Malignant neoplasm of esophagus, unspecified; C78.7 Secondary malignant neoplasm of liver and intrahepatic bile duct; C79.51 Secondary malignant neoplasm of bone; C79.70 Secondary malignant neoplasm of unspecified adrenal gland; E86.0 Dehydration; D64.81 Anemia due to antineoplastic chemotherapy; Z79.899 Other long term (current) drug therapy
CPT/HCPCS: 36415; 36430; 71045; 71275; 80053; 81003; 82553; 82805; 83605; 83880; 84484; 85025; 86850; 86900; 86901; 87040; 93005; 93306; 96361; 96365; 96366; 96368; 96375; 96376; G0378; J2270; J2543; J7050; P9016; Q0162; S0028

== ENCOUNTER 2017-12-21 09:23 | Day surgery (SDC) | payer BC ==
[2017-12-21] MEDS ORDERED: Furosemide 20 MG/2 ML VIAL SLOW IVP SCH (09:45)
[2017-12-21] MEDS ORDERED: Acetaminophen 500 MG TAB PO SCH (09:45)
[2017-12-21] MEDS ORDERED: diphenhydrAMINE 25 MG CAP PO SCH (09:45)
[2017-12-21] MEDS ORDERED: Sodium Chloride 0.9% 40 ML ONE (10:16)
[2017-12-21 14:24] LABS: Hemoglobin 10.2 g/dL (12.0-16.0)
[2017-12-21 17:57] VITALS: BP 151/100; TEMP 96.1
== END 2017-12-21 18:06 | disposition home or self-care (01) ==
LOC: ONC/OP 09:23
PROVIDERS: ATTEND Internal Medicine Hematology & Oncology
DX: D64.9 Anemia, unspecified (principal); D69.6 Thrombocytopenia, unspecified
CPT/HCPCS: 36430; 85014; 85018; 86850; 86900; 86901; A4216; J1642; J1940; P9016

== ENCOUNTER 2017-12-26 09:44 | Outpatient (CLI) | payer BC, OTHER ==
--- NOTE | 2017-12-26 10:24 | RAD ---
PA AND LATERAL CHEST: HISTORY: A 46-year-old female with a history of dyspnea. COMPARISON: 11/06/2017 FINDINGS: Heart size is within normal limits. Bilateral diffuse increased interstitial markings bilaterally wi th bilateral pleural effusions. Right subclavian catheter and injection port. Evidence for a hiatal hernia. IMPRESSION: 1. Stable bilateral pleural effusions and interstitial changes throughout both lungs. 2. Stable appearing hiatal hernia. 3. No significant new process. POS: [facility]
== END 2017-12-26 09:45 | disposition home or self-care (01) ==
LOC: RAD 09:44
PROVIDERS: ATTEND Internal Medicine
DX: R06.00 Dyspnea, unspecified (principal); J90 Pleural effusion, not elsewhere classified; K44.9 Diaphragmatic hernia without obstruction or gangrene; C15.8 Malignant neoplasm of overlapping sites of esophagus; C16.0 Malignant neoplasm of cardia
CPT/HCPCS: 71046; 80053; 81001; 82248; 83615; 84100; 84550; 85025; 87086

== ENCOUNTER 2018-01-05 16:45 | Inpatient (IN) | payer BC, OTHER ==
[2018-01-05 17:51] LABS: Hemoglobin 11.5 g/dL (12.0-16.0); Mean Corpuscular HGB CONC 35.8 g/dL (32.0-36.0); Mean Corpuscular Hemoglobin 34.6 pg (27.0-31.0); Mean Corpuscular Volume 96.7 fL (78.0-98.0); RBC Distribution Width 20.3 % (11.5-14.5); Red Blood Cell (RBC) Count 3.32 mill/uL (4.20-5.40); White Blood Cell (WBC) Count 18.3 thou/uL (4.8-10.8)
--- NOTE | 2018-01-05 17:56 | RAD ---
PORTABLE CHEST ONE VIEW: 01/05/18 at 5:40 p.m. HISTORY: Shortness of breath FINDINGS: Comparison is made with exam of 12/26/17. The heart size is normal. The right sided Port-A-Cath remains in place. Interval worsening of interst itial infiltrates are seen bilaterally. Small bilateral pleural effusions are present. No pneumothora nika are identified. No lobar consolidation is seen. IMPRESSION: Interval worsening since 12/26/17. POS: [facility]
[2018-01-05 18:06] LABS: Actual Bicarbonate (HCO3a) 27.2 mEq/L (22-28); Base Excess (BEa) 2.2 mEq/L (-2.0 to +3.0); CO2 Tension 43.8 mmHg (35.0-45.0); O2 Tension (PaO2) 103.2 mmHg (80.0-100.0); pH, Arterial 7.41 (7.35-7.45)
[2018-01-05 18:07] LABS: Calcium, Ionized 1.1 mmol/L (1.12-1.30); Hematocrit-ABG 37.6 % (36.0-47.0); Hemoglobin (Hb) 10.6 g/dL (12.0-16.0)
[2018-01-05 18:08] LABS: Analyzer IN Cardio ER; Puncture Site RBA
[2018-01-05 18:13] LABS: ALT (SGPT) 10 U/L (8-55); AST (SGOT) 30 U/L (5-34); Albumin 2.6 g/dL (3.5-5.0); Alkaline Phosphatase 215 U/L (40-150); Anion Gap 13 mmol/L (10-20); BUN (Urea Nitrogen) 10 mg/dL (7.0-18.7); Bilirubin, Total 0.9 mg/dL (0.2-1.2); Calc. Creatinine Clearance 0 mL/min (70-130); Calcium 7.8 mg/dL (7.8-10.44); Carbon Dioxide 26 mmol/L (22-29); Chloride 99 mmol/L (98-107); Estimated GFR-MDRD Greater than 90; Globulin 2.2 g/dL (2.4-3.5); Glucose 104 mg/dL (70-105); Potassium 4.7 mmol/L (3.5-5.1); Protein, Total 4.8 g/dL (6.0-8.3); Sodium 133 mmol/L (136-145)
[2018-01-05 18:14] LABS: Anisocytosis SLIGHT = 6-15 cells (100X) (0-5/hpf); Lymphocytes 4 % (21-51); MDiff Complete? YES; Mean Platelet Volume 10.8 fL (7.4-10.4); Monocytes 3 % (0-10); Neutrophil 92 % (42-75); PLT Morphology Comment Appears Decreased; Platelet Count 49 thou/uL (130-400); Toxic Granulation SLIGHT
[2018-01-05] MEDS ORDERED: Cefepime 2 GM VIAL ONE (18:40)
[2018-01-05] MEDS ORDERED: Morphine 10 MG/ML VIAL ONE ×2 (18:41→22:23)
[2018-01-05] MEDS ORDERED: Acetaminophen/Codeine 30-300mg Tablet PO PRN ×3 (19:44→19:52)
[2018-01-05] MEDS ORDERED: HYDROcodone/Acetaminophen 10/325 mg Tablet PO PRN ×2 (19:44→19:52)
[2018-01-05] MEDS ORDERED: Prochlorperazine Maleate 5 MG TAB PO PRN (19:44)
[2018-01-05] MEDS ORDERED: Ondansetron HCl/PF 4 MG/2 ML Vial IVP PRN (19:52)
[2018-01-05] MEDS ORDERED: Vancomycin HCl 1.25 GM in Sodium Chloride 0.9% 250 ML 250 ML IVPB SCH (20:00)
[2018-01-06 01:26] VITALS: BMI 23.5
[2018-01-06] MEDS: Morphine ER 30 MG TAB PO SCH ×3 (02:10→20:34)
[2018-01-06] MEDS: Vancomycin HCl 1 GM in Premix Bag 1 BAG IVPB SCH ×3 (02:38→19:35)
[2018-01-06] MEDS: Cefepime 2 GM in Sodium Chloride 0.9% 100 ML IVPB SCH ×3 (02:38→18:29)
[2018-01-06] MEDS ORDERED: Cefepime 2 GM in Sodium Chloride 0.9% 100 ML IVPB SCH (03:00)
[2018-01-06] MEDS: Ondansetron ODT 8 MG TAB PO PRN (04:09)
[2018-01-06] MEDS: HYDROcodone/Acetaminophen 10/325 mg Tablet PO PRN ×2 (06:22→12:49)
[2018-01-06 06:46] LABS: Anion Gap 11 mmol/L (10-20); BUN (Urea Nitrogen) 8 mg/dL (7.0-18.7); Calc. Creatinine Clearance 152 mL/min (70-130); Calcium 7.2 mg/dL (7.8-10.44); Carbon Dioxide 24 mmol/L (22-29); Chloride 102 mmol/L (98-107); Estimated GFR-MDRD Greater than 90; Glucose 99 mg/dL (70-105); Potassium 4.7 mmol/L (3.5-5.1); Sodium 132 mmol/L (136-145)
[2018-01-06 07:45] LABS: Anisocytosis SLIGHT = 6-15 cells (100X) (0-5/hpf); Band 5 % (5-11); Hemoglobin 10.2 g/dL (12.0-16.0); Lymphocytes 6 % (21-51); MDiff Complete? YES; Mean Corpuscular HGB CONC 33.1 g/dL (32.0-36.0); Mean Corpuscular Hemoglobin 32.4 pg (27.0-31.0); Mean Platelet Volume 11.5 fL (7.4-10.4); Monocytes 1 % (0-10); Neutrophil 88 % (42-75); PLT Morphology Comment Appears Decreased; Platelet Count 36 thou/uL (130-400); RBC Distribution Width 19.9 % (11.5-14.5); Red Blood Cell (RBC) Count 3.15 mill/uL (4.20-5.40); Tear Drops SLIGHT = 2-5 cells (100X) (0-1/hpf)
[2018-01-06] MEDS: Enoxaparin Sodium 40 MG/0.4 ML SYRINGE SC SCH (08:11)
[2018-01-06] MEDS ORDERED: Sodium Chloride 0.9% 1,000 ML IV SCH (08:45)
[2018-01-06] MEDS ORDERED: Senokot S 8.6-50 MG TAB PO SCH (11:00)
[2018-01-06] MEDS: diphenhydrAMINE 25 MG CAP PO PRN ×2 (11:19→20:34)
[2018-01-06] MEDS: Lorazepam 0.5 MG TAB PO PRN (12:10)
[2018-01-06] MEDS: Sodium Chloride 0.9% 1,000 ML IV SCH ×4 (12:47→17:25)
[2018-01-06] MEDS ORDERED: Morphine IR Tab 15 MG TAB PO PRN (13:17)
--- NOTE | 2018-01-06 13:25 | PDOC.PN ---
- Subjective Encounter Start Date: 01/06/18 Encounter Start Time: 13:10 Subjective: f/u for sepsis, PNA with hx of esophageal cancer admitted with SOB -: and tachycardia. Tx with Cefepime/Vancomycin/Duonebs. Still SOB with -: minimal exertion and nsg noted sinus tachycardia. Last chemo 01/03/18 - Objective Resuscitation Status: Resuscitation Status FULL:Full Resuscitation MAR Reviewed: Yes Vital Signs & Weight: Vital Signs (12 hours) Temp Pulse Resp BP Pulse Ox 01/06/18 10:30 100 01/06/18 10:27 121 H 28 H 100 01/06/18 07:45 97.4 F L 120 H 28 H 100 01/06/18 07:42 97.4 F L 120 H 28 H 111/80 100 01/06/18 04:00 97.2 F L 126 H 36 H 120/84 99 Weight Weight 137 lb Result Diagrams: 01/06/18 05:24 01/06/18 05:24 Additional Labs: Microbiology 01/05/18 17:32 Port - Right Subclavian Vein Blood Culture - Preliminary Specimen has been received and culture in progress. No Growth to date. 01/05/18 17:07 Venous blood - Right Hand Blood Culture - Preliminary Specimen has been received and culture in progress. No Growth to date. Laboratory Tests 01/05/18 01/05/18 01/05/18 17:32 17:32 17:32 WBC 18.3 H Hgb 11.5 L Plt Count 49 L Neutrophils % (Manual) 92 H Sodium 133 L Lactic Acid 1.4 01/06/18 05:24 WBC Hgb Plt Count Neutrophils % (Manual) 88 H Sodium Lactic Acid Radiology Reviewed by me: Yes (PCXR - pending) EKG Reviewed by me: Yes (Tele - Sinus tachycardia in 130's) Phys Exam - Physical Examination ill-appearing, tachypnea, pale HEENT: PERRLA, sclera anicteric, oral pharynx no lesions Neck: no nodes, no JVD, supple, full ROM diminished in bibasilar segments, occasional rhonchi and wheeze R upper chest with mediport tachycardic S1, S2 Cardiovascular: no significant murmur, no rub, gallop Gastrointestinal: soft, non-tender, no distention, positive bowel sounds Musculoskeletal: no edema, pulses present Neurological: normal sensation, moves all 4 limbs Psychiatric: normal affect, A&O x 3 Skin: no rash, normal turgor, cap refill <2 seconds Dx/Plan (1) Sepsis Code(s): A41.9 - SEPSIS, UNSPECIFIED ORGANISM Status: Acute Comment: Suspected, continue Cefepime and Vancomycin, IVF's, await final Ucx and blood cx results (2) Acute dyspnea Code(s): R06.00 - DYSPNEA, UNSPECIFIED Status: Acute Comment: Suspect due to PNA and ? pleural effusion, will consider CT PE r/o however, may be unable to anticoagulate if PE found in light of thrombocytopenia due to chemotherapy, repeat PCXR now, ABG now, consult Pulmonology (3) Sinus tachycardia Code(s): R00.0 - TACHYCARDIA, UNSPECIFIED Status: Acute Comment: Persistent , likely due to PNA, sepsis, continue telemetry monitoring, IVF's (4) Metastasis from esophageal cancer Code(s): C79.9 - SECONDARY MALIGNANT NEOPLASM OF UNSPECIFIED SITE; C15.9 - MALIGNANT NEOPLASM OF ESOPHAGUS, UNSPECIFIED Status: Chronic Comment: Continuing active chemotherapy last given 01/03/18 (5) Thrombocytopenia Code(s): D69.6 - THROMBOCYTOPENIA, UNSPECIFIED Status: Acute Comment: Secondary to chemotherapy, hold NSAIDs, anticoagulation, ASA, serial monitoring - Plan continue antibiotics, social media project manager, respiratory therapy, DVT proph w/SCDs Continue aggressive supportive measures -: Duonebs q4h, Solumedrol 40mg IV q6h -: Continue Vancomycin and Cefepime -: PCXR now -: ABG now * AM lab: CMP, CBC, Mg++, PO3, TSH
[2018-01-06 14:06] LABS: Actual Bicarbonate (HCO3a) 23.7 mEq/L (22-28); Base Excess (BEa) -1.9 mEq/L (-2.0 to +3.0); CO2 Tension 44.1 mmHg (35.0-45.0); O2 Tension (PaO2) 99.5 mmHg (80.0-100.0); pH, Arterial 7.35 (7.35-7.45)
[2018-01-06 14:08] LABS: Calcium, Ionized 1.1 mmol/L (1.12-1.30); Puncture Site L.B.
[2018-01-06 14:09] LABS: ALV-art Gradient 45.015 (0-20)
[2018-01-06] MEDS: Morphine IR Tab 15 MG TAB PO PRN (16:03)
[2018-01-06] MEDS: Promethazine 25 MG TAB PO PRN (16:34)
--- NOTE | 2018-01-06 16:55 | RAD ---
SINGLE VIEW CHEST: Date: 01/06/18 COMPARISON: 01/05/18. HISTORY: Shortness of breath and tachycardia. Pneumonia. FINDINGS: Single view of the chest shows a normal sized cardiomediastinal silhouette. MediPort is unchanged in position. There are bilateral pleural effusion. There also appear to be bilateral lower lobe infiltra dianna. IMPRESSION: Bilateral lower lobe infiltrates with adjacent pleural effusions. POS: [facility]
[2018-01-06 17:57] LABS: Vancomycin, Trough 17.4 ug/mL
[2018-01-06] MEDS ORDERED: Lidocaine 1% (PF) 30 ML VIAL FS SCH (18:00)
[2018-01-06] MEDS ORDERED: Metoprolol Tartrate 5 MG/5 ML VIAL IVP SCH (18:00)
--- NOTE | 2018-01-06 18:02 | HP ---
PRIMARY CARE PHYSICIAN: Anant Esquivel D.O. ONCOLOGIST: Tasia Moya M.D. CODE STATUS: FULL CODE, however, the patient does not want to be kept in life support if that is the case, the patient also has a decision maker, "Mrs Monika Ruiz" to make medical decisions, if pt unable to. TIME OF EVALUATION: 7:30 p.m. CHIEF COMPLAINT: Shortness of breath. HISTORY OF PRESENT ILLNESS: This is a 47 years old female patient with past medical history of esophageal cancer, has been going through chemotherapy, patient is still able to eat by mouth, presented to the hospital after having severely, gradually worsening cough and shortness of breath associated with sputum production, the last chemo was , and symptoms have been getting worse after chemo, patient has no alleviating factors of her symptoms, the patient was seen in the past by associate technician and copy manager, she follows with as outpatient. It seems that she might have some damage in the lungs from chemo/radiation. REVIEW OF SYSTEMS: Constitutional: No fever. The patient has chills and generalized weakness. Respiratory: Cough, sputum production, shortness of breath. Cardiovascular: No chest pain, no palpitation, no shortness of breath. Gastrointestinal: The patient has nausea, no vomiting, no diarrhea, abdominal pain. Central nervous system: No dizziness, headache, feeling lightheaded. Genitourinary: No burning on urination. Extremities: No leg swelling. All other systems were reviewed and negative except from the findings mentioned above. PAST MEDICAL HISTORY: Esophageal cancer, pancreatitis, anemia. PAST SURGICAL HISTORY: Cholecystectomy, MediPort, left knee surgery. PSYCHIATRIC HISTORY: No history of psych problem. SOCIAL HISTORY: The patient drinks alcohol occasionally. No drugs. No smoking history. HOME MEDICATIONS: Phenergan, lorazepam, Zofran, Lasix, morphine extended release 30 mg daily. ALLERGIES: No allergies to any medications. PHYSICAL EXAMINATION: VITAL SIGNS: On presentation, the patient has heart rate of 130, blood pressure 135/70, saturation is 95, patient is on 2 liters nasal canula, of note patient use nasal cannula at home 2 liters. GENERAL: The patient is alert, oriented, mild distress due to frequent cough. HEENT: Eyes: Normal conjunctivae. Moist oral mucosa. Anicteric. No JVD. RESPIRATORY: Bilateral air entry. The patient has rales bilaterally, mostly on the left. No wheezing, symmetric expansion. CARDIOVASCULAR: The patient is tachycardic. Normal rate and rhythm. No murmurs, no gallop. No edema. ABDOMEN: Soft, normal bowel sounds. MUSCULOSKELETAL: Baseline range of motion and strength. No tenderness. SKIN: Warm and intact. No pallor, no rash, no redness. NEUROLOGIC: Baseline sensory. No evidence of any new focal weakness. Baseline speech. Cranial nerves seem to be intact. PSYCHIATRIC: The patient is in good mood, no anxiety, oriented, optimal adjustment. LABORATORY DATA: Reviewed. The patient had white count of 18.3, hemoglobin 11 , MCV 96, platelet count 49. ABG was done. The patient has a pH of 7.4, pCO2 of 43, oxygen 103. Chemistry: Sodium 133, potassium 4.7, chloride 99, carbon dioxide 26, anion gap 13, BUN 10, creatinine 0.5, GFR 90, glucose 104. Lactic acid 1.4, calcium 7.8, total bilirubin 0.9, AST 30, ALT 10, alkaline phosphatase 215. Serum total protein 4.8, albumin 2.6, globulin of 2.2, albumin globulin ratio is 1.2. IMAGING: Chest x-ray was reviewed. The heart size is normal and the right- sided Port-A-Cath remains in place, worsening of the interstitial infiltrates are seen bilaterally, small bilateral pleural effusion at present, no pneumothorax identified. No lower consolidation seen. ASSESSMENT AND PLAN: 1. Sepsis in an immunosuppressed host due to chemotherapy, this place the patient at high risk of complications from sepsis. White count 18.3. The patient also had tachycardia and tachypnea. The source is multilobar pneumonia. The patient has been placed on vancomycin and cefepime, cultures to be followed, we will monitor the patient closely, if she continues to deteriorate might need to be admitted to ICU. 2. Multilobar pneumonia. The patient reproted having pneumonia in the past , treatment as above. 3. History of esophageal cancer and the patient getting chemotherapy, she is immunosuppressed, this place the patient at high risk of complication from an infection. To follow up as outpatient. 4. Hyponatremia. Sodium 133, this is mild, we will monitor, will adjust treatment as needed. 5. Normocytic anemia with hemoglobin 11.5, this is chronic, likely secondary to chemo, and cancer, we will trend her hemoglobin, will monitor, will adjust treatment as needed. 6. Thrombocytopenia very severe, platelets 49,000, it is likely secondary to chemo, patient has no bleeding, will monitor, we will treat accordingly. 7. Deep venous thrombosis prophylaxis. MTDD
--- NOTE | 2018-01-06 19:55 | CON ---
DATE OF CONSULTATION: 01/06/2018 SERVICE: Pulmonary Medicine. REASON FOR CONSULTATION: Healthcare associated pneumonia. HISTORY OF PRESENT ILLNESS: The patient is a 47-year-old white female with past medical history significant for widely metastatic adenocarcinoma. She was in her usual state of health until several days prior to admission when she started having some fevers, cough, increasing shortness of breath. She presented to the emergency department and had findings consistent with possible infiltrates. White blood cell count was elevated and she was tachycardic. She is tachycardic at baseline; however. Either way, she was started on broad spectrum antibiotics. Consultation was placed with me. She has had multiple episodes of pneumonia associated with aspiration related events. PAST MEDICAL HISTORY: 1. Esophageal cancer, widely metastatic. 2. Chronic anemia. PAST SURGICAL HISTORY: 1. Cholecystectomy. 2. MediPort placement. 3. Left knee surgery. 4. Thoracentesis. SOCIAL HISTORY: Negative for alcohol, tobacco or illicit drug use. She has no exposure to chemicals, dust, asbestos or tuberculosis. FAMILY HISTORY: Noncontributory. ALLERGIES: No known drug allergies. MEDICATIONS: List of her inpatient medications were reviewed. No updates were made at this time. REVIEW OF SYSTEMS: General, head, ears, eyes, nose, throat, cardiovascular, respiratory, GI, , musculoskeletal, neurologic and skin is negative expect as mentioned in the HPI. PHYSICAL EXAMINATION: VITAL SIGNS: Afebrile, pulse 126, blood pressure 137/90, respirations 28, saturation 97% on 2 liters nasal cannula. GENERAL: The patient is awake, alert, no apparent distress. LUNGS: Decent air entry. Rhonchi are present. There is no prolonged expiratory phase or wheezing appreciated. HEART: Tachycardic. Regular. ABDOMEN: Soft, nontender, nondistended. Bowel sounds are positive. MUSCULOSKELETAL: No cyanosis or clubbing. There is no pitting in the bilateral lower extremities. NEUROLOGIC: Grossly nonfocal. LABORATORY DATA: WBC 15.0, hemoglobin 10.2, platelets 36,000, which are considerably lower than baseline. pH 7.35, pCO2 44, pO2 99, corresponding to an oxygen saturation of 98%. Basic metabolic profile is essentially unremarkable. Liver function studies are also unremarkable. Alkaline phosphatase 215. Lactate is unremarkable. Urinalysis is negative. Blood cultures x2 are unremarkable to date. IMAGING: Chest x-ray demonstrates bilateral infiltrates and/or effusions. ASSESSMENT: 1. Dyspnea without evidence of hypercapnia or hypoxemia. 2. Healthcare associated pneumonia, possible. 3. Sinus tachycardia, chronic. 4. Chronic pain. 5. Adenocarcinoma of the esophagus, widely metastatic. DISCUSSION AND PLAN: I will place a Cardiology consultation to see whether or not they have any thoughts about her dyspnea. It is not coming from the lung origin. Previously, she got some modest relief by pulling minimal fluid off with thoracentesis. We will go ahead and repeat that to see if it provides any therapeutic benefit. It would also give us some diagnostic information as she does have parapneumonic effusions. We will continue antibiotics for the time being. Pulmonary Critical Care will continue to follow along. Of note, she does have a resting tachycardia when we see her in her usual state of health up to the 120s. This is probably not part of sepsis syndrome. 70 minutes have been devoted to this patient in various activities. I personally reviewed all imaging studies and laboratory data noted within this document. For fifty percent of this time, I was interacting with the patient at the bedside or coordinating care with the care team. For the remainder of the time I was immediately available to the patient in the hospital unit. GUILLERMO
[2018-01-06] MEDS: Metoprolol Tartrate 25 MG TAB PO SCH (20:23)
[2018-01-06] MEDS: Morphine ER 15 MG TAB PO SCH (20:33)
[2018-01-06] MEDS: Senokot S 8.6-50 MG TAB PO SCH (20:34)
[2018-01-06 21:13] LABS: Body Fluid Source THORACENTESIS FLD
[2018-01-06 21:14] LABS: BF Color Yellow; Clarity Hazy (Clear); Tube # EDTA; WBC/NonHematic-Auto 587 /cumm
[2018-01-06 21:18] LABS: BF RBC Count - Manual 441 /cumm
[2018-01-06 21:31] LABS: BF Segmented Neutrophils 50 %; Cell Count Non Hematic 42 %; Lymphocytes 8 %
[2018-01-07 01:03] LABS: Fluid, Triglycerides 28 mg/dL (Not Available); Pleural Fluid, Amylase Less than 30 U/L (Not Available); Pleural Fluid, Glucose 92 mg/dL; Pleural Fluid, LDH 583 U/L (Not Available); Pleural Fluid, Protein 2.3 g/dL
[2018-01-07] MEDS: Cefepime 2 GM in Sodium Chloride 0.9% 100 ML IVPB SCH ×3 (02:03→17:38)
[2018-01-07] MEDS: Vancomycin HCl 1 GM in Premix Bag 1 BAG IVPB SCH ×2 (02:04→10:50)
--- NOTE | 2018-01-07 02:24 | OP ---
DATE OF PROCEDURE: 01/06/2018 SERVICE: Pulmonary Medicine. PROCEDURE: Left-sided pleural drainage with catheter insertion, under ultrasound guidance. CONSENT: The risks and benefits of this procedure were explained to the patient. All questions were answered and alternative options explained. STAFF PHYSICIAN: Bryant Hendricks M.D. MEDICATIONS USED: A 1% without epinephrine, a total quantity 10 mL. PREOPERATIVE DIAGNOSES: 1. Dyspnea. 2. Healthcare-associated pneumonia. 3. Pleural effusion POSTPROCEDURE DIAGNOSES: 1. Dyspnea. 2. Healthcare-associated pneumonia. 3. Pleural effusion. DESCRIPTION OF PROCEDURE: A timeout was performed by the procedure team of the patient. The patient was positively identified using name and date of . The procedure site was marked. Vital sign monitoring was accomplished by noninvasive hemodynamic monitoring, pulse oximetry, and telemetry. In the seated position, the left posterior hemithorax was examined using ultrasound probe. The diaphra gm and pleural fluid were easily identified. The right side was also looked at. There was a little less fluid there and appeared to be primarily subpulmonic component. The skin on the left was preppe d and draped in sterile fashion and anesthetized with 1% lidocaine without epinephrine. A finder nee dle was inserted in the pleural space with return of slightly opaque yellow fluid. A pleural drainag e catheter was then inserted in the same location. A total quantity of 1.1 liters was withdrawn by s yringe pump technique. Sample was sent for analysis. Evacuation of fluid was terminated, because th e patient had onset of chest pressure. At the end of the procedure, estimated pleural pressure, agatha ured by manometry was -20 cm of pleural fluid. The intact catheter was withdrawn and exhalation, and a sterile dressing was applied. The patient had stable vitals throughout the entire procedure. ESTIMATED BLOOD LOSS: Less than 1 mL. COMPLICATIONS: None.
[2018-01-07 06:39] LABS: Hemoglobin 9.5 g/dL (12.0-16.0); Mean Corpuscular HGB CONC 33.3 g/dL (32.0-36.0); Mean Corpuscular Hemoglobin 32.3 pg (27.0-31.0); Mean Corpuscular Volume 97.2 fL (78.0-98.0); Mean Platelet Volume 10.4 fL (7.4-10.4); Platelet Count 33 thou/uL (130-400); RBC Distribution Width 19.9 % (11.5-14.5); Red Blood Cell (RBC) Count 2.95 mill/uL (4.20-5.40); White Blood Cell (WBC) Count 6.1 thou/uL (4.8-10.8)
[2018-01-07 06:58] LABS: Vancomycin, Trough 28.8 ug/mL
[2018-01-07 07:26] LABS: ALT (SGPT) 11 U/L (8-55); AST (SGOT) 22 U/L (5-34); Albumin 2.5 g/dL (3.5-5.0); Alkaline Phosphatase 160 U/L (40-150); Anion Gap 11 mmol/L (10-20); BUN (Urea Nitrogen) 7 mg/dL (7.0-18.7); Bilirubin, Total 0.8 mg/dL (0.2-1.2); Calc. Creatinine Clearance 152 mL/min (70-130); Calcium 7.8 mg/dL (7.8-10.44); Carbon Dioxide 25 mmol/L (22-29); Chloride 102 mmol/L (98-107); Estimated GFR-MDRD Greater than 90; Globulin 2.1 g/dL (2.4-3.5); Glucose 134 mg/dL (70-105); Magnesium 1.8 mg/dL (1.6-2.6); Potassium 4.7 mmol/L (3.5-5.1); Protein, Total 4.6 g/dL (6.0-8.3); Sodium 133 mmol/L (136-145)
[2018-01-07 08:06] LABS: Band 19 % (5-11); Lymphocytes 1 % (21-51); MDiff Complete? YES; Neutrophil 80 % (42-75); PLT Morphology Comment Appears Decreased; Polychromasia SLIGHT = 2-3 cells (100X) (0-2/hpf); Tear Drops SLIGHT = 2-5 cells (100X) (0-1/hpf)
--- NOTE | 2018-01-07 08:06 | PRG ---
DATE OF SERVICE: 01/07/2018 SERVICE: Pulmonary Medicine. INTERVAL HISTORY: The patient is actually breathing much better since the thoracentesis. She denies any current chest pain, nausea, vomiting, fevers, or chills. She remains significantly tachycardic. Otherwise, there has been no interval change to her condition. PHYSICAL EXAMINATION: VITAL SIGNS: Afebrile, pulse 114, blood pressure 121/81, respirations 18, saturation 96% on 2 liters nasal cannula. GENERAL: The patient is awake, alert, in no apparent distress. LUNGS: There is good air entry. Dependent crackles are present. There is better air entry at the a t the left base. HEENT: Normocephalic, atraumatic. Sclerae are white. Conjunctivae pink. Oral and nasal mucosae ar e moist without lesions. HEART: Tachycardic. Regular. ABDOMEN: Soft, nontender, nondistended. Bowel sounds are positive. MUSCULOSKELETAL: No cyanosis or clubbing. No pitting in the bilateral lower extremities. NEUROLOGIC: Grossly nonfocal. LABORATORY DATA: Pleural fluid pH is 7.26. LDH 500 glucose 92, amylase is low, total protein 2.3, t riglycerides are also low. A 50% of the white blood cells are neutrophils, 42% nonhematologic cells. Vancomycin is 28. Blood cultures x2 and body fluid culture are negative to date. ASSESSMENT: 1. Dyspnea without evidence of hypercapnia or hypoxemia. 2. Sinus tachycardia. 3. Healthcare-associated pneumonia, possible. 4. Pleural effusion, bilateral, status post thoracentesis on the left. 5. Chronic pain. 6. Adenocarcinoma of the esophagus, widely metastatic. DISCUSSION AND PLAN: The characteristics of the pleural fluid are interesting. The pH is low, sugge sting that there could be a neoplastic or infectious process happening here. It is an exudative flui d with a predominant neutrophil count. I am interested in seeing what the cytology is going to show. We will continue antibiotics. I will consider thoracentesis on the right tomorrow. Pulmonary Crit ical Care will continue to follow.
[2018-01-07] MEDS: Morphine ER 15 MG TAB PO SCH ×2 (08:54→20:49)
[2018-01-07] MEDS: Senokot S 8.6-50 MG TAB PO SCH ×2 (08:54→20:48)
[2018-01-07] MEDS: Morphine ER 30 MG TAB PO SCH ×2 (08:56→20:49)
[2018-01-07] MEDS: Metoprolol Tartrate 25 MG TAB PO SCH ×2 (08:56→20:48)
[2018-01-07] MEDS: HYDROcodone/Acetaminophen 10/325 mg Tablet PO PRN (14:02)
[2018-01-07] MEDS: Morphine IR Tab 15 MG TAB PO PRN ×2 (16:40→20:49)
--- NOTE | 2018-01-07 17:27 | PDOC.PN ---
- Subjective Encounter Start Date: 01/07/18 Encounter Start Time: 16:25 Subjective: f/u for sepsis, acute resp failure and tachycardia. Feeling better today -: s/p L thoracentesis 01/06/18. Remains tachycardic but respirations improved -: Tx with Cefepime/Vancomycin/Solumedrol - Objective Resuscitation Status: Resuscitation Status FULL:Full Resuscitation MAR Reviewed: Yes Vital Signs & Weight: Vital Signs (12 hours) Temp Pulse Resp BP Pulse Ox 01/07/18 16:42 97.8 F 117 H 18 117/83 100 01/07/18 12:00 97.5 F L 114 H 18 125/82 95 01/07/18 10:26 120 H 20 01/07/18 08:00 97.8 F 123 H 19 130/83 95 01/07/18 07:09 121 H 18 97 Weight Weight 137 lb Result Diagrams: 01/07/18 06:20 01/07/18 06:20 Additional Labs: Microbiology 01/06/18 18:25 Pleural fluid Body Fluid Culture - Preliminary 01/05/18 17:32 Port - Right Subclavian Vein Blood Culture - Preliminary Specimen has been received and culture in progress. No Growth to date. 01/05/18 17:32 Port - Right Subclavian Vein Blood Culture - Preliminary NO GROWTH AT 48 HOURS 01/05/18 17:07 Venous blood - Right Hand Blood Culture - Preliminary Specimen has been received and culture in progress. No Growth to date. 01/05/18 17:07 Venous blood - Right Hand Blood Culture - Preliminary NO GROWTH AT 48 HOURS Laboratory Tests 01/05/18 01/05/18 01/05/18 17:32 17:32 17:32 WBC 18.3 H Hgb 11.5 L Plt Count 49 L Neutrophils % (Manual) 92 H Band Neuts % (Manual) Sodium 133 L Lactic Acid 1.4 Magnesium TSH 3rd Generation Vancomycin Trough 01/06/18 01/07/18 01/07/18 05:24 06:20 06:20 WBC 15.0 H Hgb 10.2 L Plt Count 36 L Neutrophils % (Manual) 88 H 80 H Band Neuts % (Manual) 5 19 H Sodium Lactic Acid Magnesium 1.8 TSH 3rd Generation Vancomycin Trough 01/07/18 01/07/18 06:20 06:20 WBC Hgb Plt Count Neutrophils % (Manual) Band Neuts % (Manual) Sodium Lactic Acid Magnesium TSH 3rd Generation 2.2572 Vancomycin Trough 28.8 EKG Reviewed by me: Yes (Tele - Sinus tachycardia in 115's) Phys Exam - Physical Examination Constitutional: NAD alert, responsive, talkative HEENT: PERRLA, sclera anicteric, oral pharynx no lesions Neck: no nodes, no JVD, supple, full ROM coarse sounds bilat, diminished in bases S1, S2, tachycardic Cardiovascular: no significant murmur, no rub, gallop Gastrointestinal: soft, non-tender, no distention, positive bowel sounds Musculoskeletal: pulses present, edema present Neurological: non-focal, normal sensation, moves all 4 limbs Psychiatric: normal affect, A&O x 3 Skin: no rash, normal turgor, cap refill <2 seconds Dx/Plan (1) Sepsis Code(s): A41.9 - SEPSIS, UNSPECIFIED ORGANISM Status: Acute Comment: Suspected, continue Cefepime and Vancomycin, IVF's, await final Ucx and blood cx results (2) Acute dyspnea Code(s): R06.00 - DYSPNEA, UNSPECIFIED Status: Acute Comment: Suspect due to PNA and ? pleural effusion, will consider CT PE r/o however, may be unable to anticoagulate if PE found in light of thrombocytopenia due to chemotherapy, repeat PCXR now, ABG now, consult Pulmonology (3) Sinus tachycardia Code(s): R00.0 - TACHYCARDIA, UNSPECIFIED Status: Acute Comment: Persistent , likely due to PNA, sepsis, continue telemetry monitoring, IVF's (4) Metastasis from esophageal cancer Code(s): C79.9 - SECONDARY MALIGNANT NEOPLASM OF UNSPECIFIED SITE; C15.9 - MALIGNANT NEOPLASM OF ESOPHAGUS, UNSPECIFIED Status: Chronic Comment: Continuing active chemotherapy last given 01/03/18 (5) Thrombocytopenia Code(s): D69.6 - THROMBOCYTOPENIA, UNSPECIFIED Status: Acute Comment: Secondary to chemotherapy, hold NSAIDs, anticoagulation, ASA, serial monitoring - Plan plan discussed w/ family, continue antibiotics, PT/OT, social media marketing manager, respiratory therapy, out of bed/ambulate, DVT proph w/SCDs Continue supportive mgmt -: Continue Cefepime and Vancomycin -: Continue Solumedrol 40mg IV q6h -: Saline lock IVF -: Continue Duonebs and O2 prn * AM lab: BMP, CBC * Await final pleural fluid cx results
[2018-01-07 17:55] LABS: Vancomycin, Trough 26.9 ug/mL
[2018-01-08] MEDS: Cefepime 2 GM in Sodium Chloride 0.9% 100 ML IVPB SCH ×3 (01:01→18:56)
[2018-01-08] MEDS: HYDROcodone/Acetaminophen 10/325 mg Tablet PO PRN ×2 (01:10→18:58)
[2018-01-08] MEDS: Vancomycin HCl 1 GM in Premix Bag 1 BAG IVPB SCH ×2 (02:33→14:50)
[2018-01-08 05:07] LABS: Anion Gap 10 mmol/L (10-20); BUN (Urea Nitrogen) 10 mg/dL (7.0-18.7); Calc. Creatinine Clearance 155 mL/min (70-130); Calcium 7.7 mg/dL (7.8-10.44); Carbon Dioxide 25 mmol/L (22-29); Chloride 102 mmol/L (98-107); Estimated GFR-MDRD Greater than 90; Glucose 157 mg/dL (70-105); Potassium 4.9 mmol/L (3.5-5.1); Sodium 132 mmol/L (136-145)
[2018-01-08] MEDS: Sodium Chloride 0.9% 1,000 ML IV SCH (05:54)
[2018-01-08 06:08] LABS: Anisocytosis SLIGHT = 6-15 cells (100X) (0-5/hpf); Band 28 % (5-11); Hemoglobin 8.8 g/dL (12.0-16.0); MDiff Complete? YES; Mean Corpuscular HGB CONC 33.3 g/dL (32.0-36.0); Mean Corpuscular Hemoglobin 32.5 pg (27.0-31.0); Mean Corpuscular Volume 97.4 fL (78.0-98.0); Mean Platelet Volume 10.8 fL (7.4-10.4); Neutrophil 72 % (42-75); PLT Morphology Comment Appears Decreased; Platelet Count 43 thou/uL (130-400); RBC Distribution Width 19.6 % (11.5-14.5); Red Blood Cell (RBC) Count 2.71 mill/uL (4.20-5.40); White Blood Cell (WBC) Count 10.5 thou/uL (4.8-10.8)
[2018-01-08] MEDS ORDERED: Metoprolol Tartrate 25 MG TAB PO SCH (06:45)
[2018-01-08] MEDS: Senokot S 8.6-50 MG TAB PO SCH ×2 (08:28→20:28)
[2018-01-08] MEDS: Morphine ER 30 MG TAB PO SCH ×2 (08:28→20:28)
[2018-01-08] MEDS: Morphine ER 15 MG TAB PO SCH ×2 (08:29→20:29)
[2018-01-08] MEDS ORDERED: Enoxaparin Sodium 40 MG/0.4 ML SYRINGE SC SCH (09:15)
[2018-01-08] MEDS: Enoxaparin Sodium 40 MG/0.4 ML SYRINGE SC SCH (10:40)
--- NOTE | 2018-01-08 12:47 | PRG ---
DATE OF SERVICE: 01/08/2018 SERVICE: Pulmonary Medicine INTERVAL HISTORY: The patient is doing fine from a respiratory standpoint. She is actually breathin g very comfortably. She has no complaints of chest discomfort, fevers, chills, nausea or vomiting. Cardiology saw her and is working on rate control medications. Otherwise, there has been no interval change to her condition. PHYSICAL EXAMINATION: VITAL SIGNS: Afebrile, pulse 107, blood pressure 132/84, respirations 20, saturation 94% on room air . GENERAL: The patient is awake, alert, in no apparent distress. LUNGS: Decent air entry. Dependent crackles are minimal. HEART: Normal rate, regular. ABDOMEN: Soft, nontender, nondistended. Bowel sounds are positive. MUSCULOSKELETAL: No cyanosis or clubbing. There is 1+ pitting in the bilateral lower extremities. NEUROLOGIC: Nonfocal. LABORATORY DATA: WBC 10.5, hemoglobin 8.8, platelets 43,000. Basic metabolic profile is essentially unremarkable except for sodium of 132. Blood cultures x2 and body fluid culture remains negative. The pathology on the pleural fluid is pending. ASSESSMENT: 1. Dyspnea without evidence of hypercapnia and hypoxemia. 2. Sinus tachycardia, chronic. 3. Healthcare-associated pneumonia, possible. 4. Pleural effusion, bilateral, status post thoracentesis on the left. 5. Chronic pain. 6. Adenocarcinoma of the esophagus, widely metastatic. DISCUSSION AND PLAN: We will perform a thoracentesis on the right side today. If there is still sig nificant amounts of fluid there. We will do this for both diagnostic and therapeutic purposes. She has actually never been tapped on that side before. I will continue empiric antibiotics for the time being. Pulmonary Critical Care will continue to follow along while she remains in house.
[2018-01-08] MEDS ORDERED: Lidocaine 1% (PF) 30 ML VIAL ONE (17:28)
--- NOTE | 2018-01-08 18:22 | PDOC.CTH ---
Cardiology Progress Note - Subjective Improved. Pt scheduled for thoracentesis this afternoon - Objective Vital Signs Temp Pulse Resp BP Pulse Ox 01/08/18 16:30 97.7 F 96 20 117/79 100 01/08/18 13:48 85 16 99 01/08/18 08:00 97.7 F 107 H 20 01/08/18 07:40 97.7 F 107 H 20 132/84 94 L 01/08/18 06:54 97 16 100 Weight 137 lb 01/07/18 01/08/18 01/09/18 06:59 06:59 06:59 Intake Total 990 Balance 990 - Physical Examination General/Neuro: alert & oriented x3, NAD Neck: no JVD present Lungs: other: (decreased bs on right) Heart: RRR Abdomen: no HSM, NT/ND, soft Extremities: + femoral B - Labs Result Diagrams: 01/08/18 04:26 01/08/18 04:26 - Assessment/Plan 1. Tachycardia 2. Esophageal cancer 3. Pleural efffusions HR improved with low dose BB Continue for now Thoracentesis scheduled for this pm. Increase HR likely multifactorial
--- NOTE | 2018-01-08 18:53 | CON ---
DATE OF CONSULTATION: 01/08/2018 REASON FOR CONSULTATION: Tachycardia. REFERRING PROVIDER: Bryant Hendricks. HISTORY OF PRESENT ILLNESS: Ms. Cummings is a very pleasant 47-year-old woman, who unfortunately has m etastatic esophageal cancer. She has been on Herceptin. Previous LVEF at [facility] was estimated t o 45%-50%. Her most recent echo dated 12/14/2017 suggests LVEF of 60%-65%. She recently presented with bilateral pleural effusions in addition to her shortness of breath. Her heart rate was in the 110s to 120s. No chest pain or pressure present. Her main complaint has been shortness of breath. She did have a thoracentesis to the left chest today and is scheduled for thora centesis of the right chest. Her TSH has been within normal limits. PAST MEDICAL HISTORY: As above including pancreatitis and anemia. PAST SURGICAL HISTORY: Cholecystectomy, knee surgery, MediPort placement. SOCIAL HISTORY: Occasional alcohol use. No current tobacco or drug use. HOME MEDICATIONS: Lorazepam, Zofran, Lasix, Phenergan. ALLERGIES: None. REVIEW OF SYSTEMS: Ten point review of system is reviewed as above, otherwise negative. Please see note from 01/07/2018. PHYSICAL EXAMINATION: VITAL SIGNS: Blood pressure 132/84, pulse 116, respirations 20. GENERAL: Patient is a pleasant male/female who is in no acute distress. The patient appears his/her stated age. NEUROLOGIC: The patient is alert and oriented times 3 with no focal neurologic deficits. HEENT: Sclerae without icterus. Mouth has moist mucous membranes with normal pallor. NECK: No JVD. Carotid upstroke brisk. No bruits bilaterally. LUNGS: Decreased breath sounds noted on left versus right. BACK: No scoliosis or kyphosis. CARDIAC: Regular rate and rhythm with normal S1 and S2. No S3 or S4 noted. No significant rubs, mu rmurs, thrills, or gallops noted throughout the precordium. PMI is not displaced. There is no jessenia ternal heave. ABDOMEN: Soft, nontender, nondistended. No peritoneal signs present. No hepatosplenomegaly. No ab normal striae. EXTREMITIES: 2+ femoral and 2+ dorsalis pedis pulses. No cyanosis, clubbing, or edema. SKIN: No gross abnormalities. PERTINENT LABORATORY DATA: Hemoglobin 9.5, creatinine 0.46, albumin 2.5. EKG shows sinus tachycardia. IMPRESSION: 1. Sinus tachycardia. 2. Esophageal cancer. RECOMMENDATIONS: Etiology to sinus tachycardia is likely related to underlying condition. She does have esophageal cancer with metastatic disease in addition to pleural effusions. Her LVEF was noted to be 60%-65% and hyperdynamic on her most recent echo. I did not feel the need to proceed with a re peat echo. She has had improvement after thoracentesis. We will start low dose beta elo therapy . Blood cultures have been drawn.
[2018-01-08 18:55] LABS: Pleural Fluid, Protein 2.1 g/dL
[2018-01-08 19:29] LABS: BF Color Yellow; BF RBC Count - Manual 20 /cumm; BF WBC/Nonhematics Ct. - Manua 315 /cumm; Body Fluid Source THORACENTESIS FLD; Clarity Clear (Clear); Tube # EDTA
[2018-01-08 20:06] LABS: BF Segmented Neutrophils 47 %; Cell Count Non Hematic 50 %; Lymphocytes 3 %
[2018-01-08] MEDS: Metoprolol Tartrate 25 MG TAB PO SCH (20:28)
[2018-01-08] MEDS: Morphine IR Tab 15 MG TAB PO PRN (22:29)
[2018-01-09] MEDS: Cefepime 2 GM in Sodium Chloride 0.9% 100 ML IVPB SCH ×3 (01:05→18:02)
[2018-01-09] MEDS: HYDROcodone/Acetaminophen 10/325 mg Tablet PO PRN (01:12)
[2018-01-09] MEDS: Vancomycin HCl 1 GM in Premix Bag 1 BAG IVPB SCH ×2 (02:24→16:18)
--- NOTE | 2018-01-09 08:13 | PDOC.CTH ---
Cardiology Progress Note - Subjective Feels much better. Less SOB present. HR improved. - Objective Vital Signs Temp Pulse Resp BP Pulse Ox 01/09/18 07:20 97.6 F 95 16 125/79 94 L 01/09/18 07:08 99 18 94 L 01/09/18 03:31 97.6 F 89 18 120/81 96 01/08/18 23:44 98.1 F 95 20 129/88 98 Weight 1415 lb 01/08/18 01/09/18 01/10/18 06:59 06:59 06:59 Intake Total 990 480 Output Total 795 Balance 990 -315 - Physical Examination General/Neuro: alert & oriented x3, NAD Neck: no JVD present Lungs: unlabored respirations Heart: PMI normal, RRR Abdomen: NT/ND, soft Extremities: + femoral B - Labs Result Diagrams: 01/08/18 04:26 01/08/18 04:26 - Assessment/Plan 1. Tachycardia 2. Esophageal cancer 3. Pleural efffusions Improved Increase HR multifactorial responding to low dose BB Ok to transfer to medical from my standpoint No further recommendations. fu with me in 1-2 weeks.
--- NOTE | 2018-01-09 08:28 | PDOC.PN ---
- Subjective Encounter Start Date: 01/09/18 (f/u thrombocytopenia) Encounter Start Time: 08:25 Subjective: Pt reports pain is controlled and 3-4/10 with her usual meds. No BM in 2 -: days. Denies any new sx or concerns - Objective Resuscitation Status: Resuscitation Status FULL:Full Resuscitation Vital Signs & Weight: Vital Signs (12 hours) Temp Pulse Resp BP Pulse Ox 01/09/18 07:20 97.6 F 95 16 125/79 94 L 01/09/18 07:08 99 18 94 L 01/09/18 03:31 97.6 F 89 18 120/81 96 01/08/18 23:44 98.1 F 95 20 129/88 98 Weight Weight 1415 lb I&O: 01/08/18 01/09/18 01/10/18 06:59 06:59 06:59 Intake Total 990 480 Output Total 795 Balance 990 -315 Result Diagrams: 01/08/18 04:26 01/08/18 04:26 EKG Reviewed by me: Yes (tele - sinus 80-100s) Phys Exam - Physical Examination Constitutional: NAD Respiratory: no wheezing, no rales, no rhonchi decreased breath sounds at bilateral bases. cough with inspiration Cardiovascular: RRR, no significant murmur Gastrointestinal: soft, non-tender, no distention, positive bowel sounds Musculoskeletal: no edema Neurological: non-focal, moves all 4 limbs Psychiatric: normal affect Skin: no rash Dx/Plan (1) Multilobar lung infiltrate Code(s): R91.8 - OTHER NONSPECIFIC ABNORMAL FINDING OF LUNG FIELD Status: Acute (2) Pleural effusion Code(s): J90 - PLEURAL EFFUSION, NOT ELSEWHERE CLASSIFIED Status: Acute (3) Anemia Code(s): D64.9 - ANEMIA, UNSPECIFIED Status: Chronic Qualifiers: Other causes of anemia: antineoplastic chemotherapy (4) Thrombocytopenia Code(s): D69.6 - THROMBOCYTOPENIA, UNSPECIFIED Status: Chronic (5) Hyponatremia Code(s): E87.1 - HYPO-OSMOLALITY AND HYPONATREMIA Status: Acute (6) Sepsis Code(s): A41.9 - SEPSIS, UNSPECIFIED ORGANISM Status: Resolved (7) Sinus tachycardia Code(s): R00.0 - TACHYCARDIA, UNSPECIFIED Status: Acute (8) Esophageal cancer Status: Chronic Qualifiers: Malignant neoplasm of esophagus location: unspecified location Qualified Code(s): C15.9 - Malignant neoplasm of esophagus, unspecified - Plan * Appreciate Pulm following - s/p thoracentesis yesterday and sx improved. On broad spectrum abx monitoring cx. * Uncertain of why pt is on IV steroids - will ask Dr. Hendricks * Pain meds adjusted to be closer to home dosing - schedule norco. Continue prn MSIR and reduce tylenol 3 to 1 tab prn to avoid exceeding tylenol max * Add miralax daily and prn lactulose and monitor BM's * Hyponatremia stable * Anemia - hemoglobin is trending down without signs of active bleeding - will recheck in AM and add type/screen if not current. * * dvt prophy =- scd. D/c lovenox due to moderate-severe thrombocytopenia * gi prophy - taking PO * code status full * * reviewed changes iwth patient, no questions or further needs at end of eval * pt remains at high risk in current condition. * * steroids not needed - will d/c
[2018-01-09] MEDS ORDERED: HYDROcodone/Acetaminophen 10/325 mg Tablet PO SCH (09:00)
[2018-01-09] MEDS: Senokot S 8.6-50 MG TAB PO SCH ×2 (09:25→21:32)
[2018-01-09] MEDS: Metoprolol Tartrate 25 MG TAB PO SCH ×2 (09:27→21:36)
[2018-01-09] MEDS: Morphine ER 15 MG TAB PO SCH ×2 (09:28→21:31)
[2018-01-09] MEDS: Morphine ER 30 MG TAB PO SCH ×2 (09:29→21:31)
[2018-01-09] MEDS: Polyethylene Glycol 3350 17 GM Packet PO SCH (09:30)
[2018-01-09] MEDS: HYDROcodone/Acetaminophen 10/325 mg Tablet PO SCH ×3 (11:21→22:50)
--- NOTE | 2018-01-09 12:42 | OP ---
DATE OF PROCEDURE: 01/08/2018 SERVICE: Pulmonary Medicine. PROCEDURE: Right-sided pleural drainage with catheter insertion under ultrasound guidance. CONSENT: Risks and benefits of this procedure were explained to the patient. All questions were ans wered and alternative options explained. STAFF PHYSICIAN: Bryant Hendricks M.D. MEDICATIONS USED: A 1% lidocaine without epinephrine, total quantity 8 mL. PREOPERATIVE DIAGNOSES: 1. Dyspnea. 2. Pleural effusion. POSTPROCEDURE DIAGNOSES: 1. Dyspnea. 2. Pleural effusion. DESCRIPTION OF PROCEDURE: Timeout was performed by the procedure team and patient. The patient was positively identified using name and date of . The procedure site was marked. Vital sign monit oring was accomplished by noninvasive hemodynamic monitoring, pulse oximetry, and telemetry. In a seated position, the right posterior hemithorax was examined using ultrasound probe. The diaphr agm and pleural fluid were easily identified. The skin was prepped and draped in sterile fashion and anesthetized with 1% lidocaine without epinephrine. A finder needle was inserted in the pleural spa ce with return of clear yellow fluid. A pleural drainage catheter was then inserted in the same loca tion and total quantity of 1.1 liters of the same fluid was withdrawn by syringe pump technique. A s ample was sent for analysis. Evacuation of fluid was terminated because fluid stopped coming. At th e end of the procedure, estimated pleural pressures, measured by manometry, was -16 cm of pleural flu id. The intact catheter was withdrawn and exhalation. A sterile dressing was applied. The patient has stable vitals throughout the entire procedure. ESTIMATED BLOOD LOSS: Less than 1 mL. COMPLICATIONS: None.
[2018-01-09] MEDS: Morphine IR Tab 15 MG TAB PO PRN ×2 (14:31→18:03)
[2018-01-09 14:49] LABS: Vancomycin, Trough 15.2 ug/mL
[2018-01-09] MEDS: Sodium Chloride 0.9% 1,000 ML IV SCH (16:26)
--- NOTE | 2018-01-09 18:55 | PRG ---
DATE OF SERVICE: 01/09/2018 SERVICE: Pulmonary Medicine. INTERVAL HISTORY: The patient is doing great from a respiratory standpoint. She denies any current chest pain, nausea, vomiting, fevers or chills. She had a little behind on her p.o. pain medications . As such, she has got little bit more discomfort. Otherwise, there has been no significant interva l change to her condition. OBJECTIVE: VITAL SIGNS: Afebrile, pulse 95, blood pressure 125/79, respirations 16, saturation 94% on room air. GENERAL: The patient is awake, alert, no apparent distress. LUNGS: Decent air entry bilaterally. Dependent crackles are minimal. There is much improved air en try at the bibasilar region compared to presentation. HEART: Normal rate, regular. ABDOMEN: Soft, nontender, nondistended. Bowel sounds are positive. MUSCULOSKELETAL: No cyanosis or clubbing. There is no pitting in the bilateral lower extremities. NEUROLOGIC: Grossly nonfocal. LABORATORY DATA: The pleural fluid on the right has an LDH is 546. It is neutrophil predominant and has multiple nonhematologic cells present. All culture results are unremarkable to date. The cytol ogy on the specimen is positive for metastatic adenocarcinoma, consistent with a primary esophageal c ancer. ASSESSMENT: 1. Dyspnea without evidence of hypercapnia or hypoxemia. 2. Sinus tachycardia, chronic. 3. Healthcare-associated pneumonia, possible. 4. Malignant pleural effusion on the left. 5. Pleural effusion on the right, status post thoracentesis. 6. Chronic pain. 7. Adenocarcinoma of the esophagus, widely metastatic. DISCUSSION AND PLAN: We will continue supportive care for the patient. If by tomorrow, her inflamma tory profile has improved dramatically, she can be converted over to p.o. medications and subsequentl y discharged from the hospital. We are waiting the cytology in the right lung, but the characteristi cs of that fluid nearly the same as what was in the left lung. As such, my suspicion is that the rig ht side will have malignant cells as well. Pulmonary will continue to follow along. We will try to transition the patient to oncology floor.
[2018-01-09] MEDS ORDERED: Sodium Chloride 0.9% 10 ML ONE (19:07)
[2018-01-10] MEDS: Morphine IR Tab 15 MG TAB PO PRN ×3 (01:52→19:36)
[2018-01-10] MEDS: Sodium Chloride 0.9% 1,000 ML IV SCH (02:00)
[2018-01-10] MEDS: Vancomycin HCl 1 GM in Premix Bag 1 BAG IVPB SCH (02:01)
[2018-01-10] MEDS: Cefepime 2 GM in Sodium Chloride 0.9% 100 ML IVPB SCH ×2 (02:04→09:25)
[2018-01-10] MEDS: HYDROcodone/Acetaminophen 10/325 mg Tablet PO SCH ×4 (04:54→22:53)
[2018-01-10 05:37] LABS: Anion Gap 6 mmol/L (10-20); BUN (Urea Nitrogen) 12 mg/dL (7.0-18.7); Calc. Creatinine Clearance 1714 mL/min (70-130); Calcium 7.8 mg/dL (7.8-10.44); Carbon Dioxide 26 mmol/L (22-29); Chloride 103 mmol/L (98-107); Estimated GFR-MDRD Greater than 90; Glucose 88 mg/dL (70-105); Sodium 131 mmol/L (136-145)
--- NOTE | 2018-01-10 05:47 | PDOC.PN ---
- Subjective Encounter Start Date: 01/08/18 Encounter Start Time: 09:30 -: old records requested/rev Pt seen and examined, chart reviewed in its entirety, this is my first visit with this patient Follow up for SOB, effusions, esoph CA S/P thoracentesis 2 days ago, cultrues still neg. to go for tap of right this afternoon. No F/C, no N/V/d/C, no CP, no SOB, some FOX All systems reviewed and neg x as above - Objective Resuscitation Status: Resuscitation Status FULL:Full Resuscitation MAR Reviewed: Yes Vital Signs & Weight: Vital Signs (12 hours) Temp Pulse Resp BP Pulse Ox 01/10/18 00:00 98.5 F 98 20 118/76 93 L 01/09/18 20:15 97.7 F 99 18 113/75 94 L 01/09/18 20:00 97.6 F 82 18 01/09/18 19:40 97.6 F 82 18 109/76 95 01/09/18 18:25 86 20 97 Weight Weight 1415 lb I&O: 01/08/18 01/09/18 01/10/18 06:59 06:59 06:59 Intake Total 990 480 990 Output Total 795 Balance 990 -315 990 Result Diagrams: 01/08/18 04:26 01/10/18 05:11 Radiology Reviewed by me: Yes EKG Reviewed by me: Yes Phys Exam - Physical Examination Constitutional: NAD HEENT: PERRLA, moist MMs, sclera anicteric, oral pharynx no lesions Neck: no nodes, no JVD, supple, full ROM Respiratory: no wheezing, no rales, no rhonchi, clear to auscultation bilateral decreased BS to right base Cardiovascular: RRR, no significant murmur, no rub Gastrointestinal: soft, no distention, positive bowel sounds Musculoskeletal: no edema, pulses present Neurological: non-focal, normal sensation, moves all 4 limbs Lymphatic: no nodes Psychiatric: normal affect, A&O x 3 Skin: no rash, normal turgor, cap refill <2 seconds Dx/Plan - Plan cont current plan of care, plan discussed w/ family, continue antibiotics, out of bed/ambulate * .
[2018-01-10 06:07] LABS: Band 21 % (5-11); Eosinophils 1 % (0-10); Hemoglobin 9.2 g/dL (12.0-16.0); Lymphocytes 5 % (21-51); MDiff Complete? YES; Mean Corpuscular Hemoglobin 32.3 pg (27.0-31.0); Mean Corpuscular Volume 97.7 fL (78.0-98.0); Mean Platelet Volume 9.8 fL (7.4-10.4); Monocytes 1 % (0-10); Neutrophil 72 % (42-75); PLT Morphology Comment Appears Decreased; Platelet Count 53 thou/uL (130-400); RBC Distribution Width 19.2 % (11.5-14.5); Red Blood Cell (RBC) Count 2.86 mill/uL (4.20-5.40); White Blood Cell (WBC) Count 13.6 thou/uL (4.8-10.8)
[2018-01-10] MEDS: Morphine ER 15 MG TAB PO SCH ×2 (08:45→21:13)
[2018-01-10] MEDS: Morphine ER 30 MG TAB PO SCH ×2 (08:45→21:12)
[2018-01-10] MEDS: Senokot S 8.6-50 MG TAB PO SCH ×2 (08:45→21:15)
[2018-01-10] MEDS: Metoprolol Tartrate 25 MG TAB PO SCH ×2 (08:45→21:14)
[2018-01-10] MEDS: Polyethylene Glycol 3350 17 GM Packet PO SCH (08:47)
[2018-01-10] MEDS ORDERED: SODIUM CHLORIDE 0.9% IVPB SCH (10:45)
[2018-01-10] MEDS ORDERED: ONDANSETRON IVP SCH (10:45)
[2018-01-10] MEDS ORDERED: SODIUM CHLORIDE 0.9% IVP SCH (10:45)
[2018-01-10] MEDS ORDERED: DEXAMETHASONE IVP SCH (10:45)
[2018-01-10] MEDS ORDERED: PACLITAXEL IVPB SCH (10:45)
[2018-01-10] MEDS ORDERED: Amoxicillin/Potassium Clav 875 MG TAB PO SCH (11:00)
--- NOTE | 2018-01-10 11:14 | PRG ---
DATE OF SERVICE: 01/10/2018 SERVICE: Pulmonary Medicine INTERVAL HISTORY: The patient is doing outstanding from a respiratory standpoint. She denies any cu rrent chest pain, nausea, vomiting, fevers or chills. Otherwise, there have been no overnight events . Her breathing is fairly comfortable. PHYSICAL EXAMINATION: VITAL SIGNS: Afebrile, pulse 89, blood pressure 109/69, respirations 16, saturation 99% on room air. GENERAL: The patient is awake, alert, no apparent distress. LUNGS: Decent air entry. I do not appreciate any crackles or wheezing. HEART: Normal rate, regular. ABDOMEN: Soft, nontender, nondistended. Bowel sounds are positive. MUSCULOSKELETAL: No cyanosis or clubbing. No pitting in the bilateral lower extremities. NEUROLOGIC: Grossly nonfocal. LABORATORY DATA: WBC 13.6, hemoglobin 9.2, platelets 53,000. Band count is 21%, which is currently down trending. Basic metabolic profile is essentially unremarkable. The cytology is positive for ad enocarcinoma in both the right and left lung. All culture results are negative to date. ASSESSMENT: 1. Dyspnea without evidence of hypercapnia and hypoxemia. 2. Sinus tachycardia, resolved with beta beta-elo. 3. Healthcare-associated pneumonia. 4. Malignant pleural effusion, bilateral. 5. Adenocarcinoma of the esophagus, widely metastatic. 6. Chronic pain. DISCUSSION AND PLAN: The patient can be converted over to p.o. Augmentin and complete a 2 week cour se of p.o. antibiotics. At some point in the future, if the dyspnea returns and she develops hypoxem ia, she can be considered for a unilateral PleurX drainage catheter. Palliative care discussions nee d to continue. Vancomycin and cefepime will be interrupted.
--- NOTE | 2018-01-10 14:16 | DIS ---
DATE OF ADMISSION: 01/05/2018 DATE OF DISCHARGE: 01/10/2018 PRIMARY CARE PHYSICIAN: Anant Esquivel D.O. DISCHARGE DIAGNOSES: 1. Acute shortness of breath. 2. Tachycardia. 3. Bilateral malignant pleural effusions. 4. Metastatic esophageal adenocarcinoma. 5. Possible healthcare-associated pneumonia. CONSULTATIONS: 1. Oncology. 2. Pulmonary and Critical Care, Dr. Bryant Hendricks. PROCEDURES: Bilateral thoracentesis, one on 01/09/2018 on the right and the other on 01/06/2018 on t he left. HISTORY AND PHYSICAL: Ms. Cummings is a 47-year-old female with known esophageal cancer who presented to the emergency department on the day of admission with complaints of shortness of breath. She was seen and evaluated in the emergency department and found to have bilateral pleural effusions, tachyca rdia, and met sepsis criteria. She was subsequently called for admission. HOSPITAL COURSE: The patient was seen and examined by Dr. Vasquez. White count was 18,000. She is tachycardic and tachypneic and felt to have possible multilobar pneumonia. She was started on vanco mycin and cefepime. We were called for admission. The patient was placed in the ICU. Pulmonary and Critical Care was consulted and the patient was mon itored. Overnight 01/05/2018 to 01/06/2018, the patient was taken to OR by Dr. Welsh. She was seen by Dr. Naman yan that evening in consultation. Patient's breathing was relatively stable. She still has shortne ss of breath with minimal exertion and is to remain tachycardic in sinus tachycardia. The patient wa s continued on DuoNeb, Solu-Medrol, vancomycin and cefepime. Chest x-ray was done. ABG was done. The patient was seen by Pulmonary later that evening, and underwent a bedside thoracentesis and remov ed approximately 1 liter of fluid. It was a kind of an interesting makeup and was sent for cultures and cytology and the patient continued on antibiotics. On 01/07/2018, the patient remained somewhat better, but still short of breath. By 01/08/2018, I took the case over for the day. Cultures remained negative. Cytology was still carmen yan. She was scheduled to have her opposite side done with a thoracentesis the following day. On 01/09/2018, she remained afebrile. Culture remained negative and cytology from the initial sample came back with adenocarcinoma. She continued on IV antibiotics and was transitioned to the floor. Today 01/10/2018, she is on the oncology stover, she is getting a dose of Taxol this afternoon. Her br eathing is markedly improved. Tachycardia has resolved with metoprolol, and she is stable for discha rge with outpatient followup. DISCHARGE CONDITION: Stable. DISPOSITION: Discharged home via private vehicle. DISCHARGE ACTIVITY: Per cardiopulmonary limits. DISCHARGE DIET: Heart healthy recommended. DISCHARGE MEDICATIONS: New medications: 1. Amoxicillin/clavulanic acid 875 mg p.o. b.i.d. for 9 more days. 2. Metoprolol tartrate 25 mg p.o. b.i.d. 3. MiraLax 17 grams daily. HOME MEDICATIONS: To continue, 1. Ativan 0.5 mg q.6 hours p.r.n. anxiety. 2. Morphine ER 45 mg p.o. b.i.d. 3. Zofran 8 mg p.o. q.8 hours p.r.n. 4. Compazine 10 mg p.o. q.4 hours p.r.n. nausea, vomiting. 5. Taxol 135 mg IV weekly, last is today. FOLLOWUP APPOINTMENTS: 1. Dr. Moya per clinic. 2. Dr. Hendricks in 2-3 weeks. 3. Primary care physician within a week.
[2018-01-10] MEDS ORDERED: Ketorolac Tromethamine 30 MG/ML VIAL IVP SCH (17:15)
[2018-01-10] MEDS: Ondansetron ODT 8 MG TAB PO PRN (17:21)
[2018-01-10] MEDS: Promethazine 25 MG TAB PO PRN (19:36)
[2018-01-10] MEDS: Amoxicillin/Potassium Clav 875 MG TAB PO SCH (21:11)
[2018-01-11] MEDS: Morphine IR Tab 15 MG TAB PO PRN ×2 (00:31→13:11)
[2018-01-11] MEDS: HYDROcodone/Acetaminophen 10/325 mg Tablet PO SCH ×2 (05:31→11:13)
[2018-01-11] MEDS: Lorazepam 0.5 MG TAB PO PRN (05:32)
[2018-01-11 09:10] VITALS: BP 126/79; TEMP 97.7
[2018-01-11] MEDS: Senokot S 8.6-50 MG TAB PO SCH (09:41)
[2018-01-11] MEDS: Amoxicillin/Potassium Clav 875 MG TAB PO SCH (09:42)
[2018-01-11] MEDS: Metoprolol Tartrate 25 MG TAB PO SCH (09:42)
[2018-01-11] MEDS: Morphine ER 30 MG TAB PO SCH (09:42)
[2018-01-11] MEDS: Morphine ER 15 MG TAB PO SCH (09:43)
[2018-01-11] MEDS: Polyethylene Glycol 3350 17 GM Packet PO SCH (09:45)
--- NOTE | 2018-01-11 12:31 | RAD ---
CHEST 2 VIEWS: HISTORY: Thoracenteses. COMPARISON: 01/06/18. FINDINGS: Cardiac silhouette magnified by projection. Pulmonary vasculature remains engorged with widespread r eticulonodular interstitial prominence. Mediastinum is midline with right internal jugular Port-A-C ath. No significant pleural fluid is evident on the lateral view. No evidence of pneumothorax. IMPRESSION: Pulmonary vascular congestion is similar to the previous exam. No evidence of pneumothorax. POS: [facility]
--- NOTE | 2018-01-11 12:42 | PRG ---
DATE OF SERVICE: 01/11/2018 SERVICE: Pulmonary Medicine INTERVAL HISTORY: The patient is doing great from a respiratory standpoint. She has a little bit of chest discomfort associated with breathing deep. That being said, she feels because we got a little behind on her pain medications. There has been no interval change to her condition, however. PHYSICAL EXAMINATION: VITAL SIGNS: Afebrile, pulse 116, blood pressure 126/79, respirations 16, saturation 98% on room air . GENERAL: The patient is awake, alert, in no apparent distress. LUNGS: Decent air entry. There are some crackles present. There is no prolonged expiratory phase o r wheezing appreciated. HEART: Normal rate, regular. ABDOMEN: Soft, nontender, nondistended. Bowel sounds are positive. MUSCULOSKELETAL: No cyanosis or clubbing. No pitting in the bilateral lower extremities. NEUROLOGIC: Grossly nonfocal. IMAGING: Chest x-ray demonstrates interval improvement in the bilateral pleural effusions. There is still a small pleural effusion on the left. ASSESSMENT: 1. Dyspnea without evidence of hypercapnia or hypoxemia. 2. Sinus tachycardia, likely resulting in heart failure. 3. Healthcare-associated pneumonia. 4. Malignant pleural effusion, bilateral. 5. Adenocarcinoma of the esophagus, widely metastatic. 6. Chronic pain. DISCUSSION AND PLAN: From my perspective, the patient is stable for transition out of the hospital p rovided we have her pain under control. Pulmonary Critical Care will continue to follow along if she remains in house. I do believe the patient would be appropriate for hospice care moving forward, bu t we will certainly leave that to Oncology. If she wants to be aggressive, PleurX catheter could be entertained at some point in the future, but I really do not think she is a great candidate for this and we certainly would not do it unless she demonstrated hypoxemia.
--- NOTE | 2018-01-11 15:03 | DIS ---
DATE OF ADMISSION: 01/05/2018 DATE OF DISCHARGE: 01/11/2018 PRIMARY CARE PHYSICIAN: Drew Esquivel, DO Please refer to my discharge summary dated 01/10/2018, the patient developed severe nausea post-Taxol therapy and discharge was held overnight. This morning, she has remained without any nausea and dariela ble to keep food down. She was subsequently discharged in stable condition. For the remainder of e discharge summary, please see the previous note.
--- NOTE | 2018-01-12 14:19 | EKG ---
Test Reason : Blood Pressure : / mmHG Vent. Rate : 138 BPM Atrial Rate : 138 BPM P-R Int : 124 ms QRS Dur : 084 ms QT Int : 298 ms P-R-T Axes : 020 017 165 degrees QTc Int : 451 ms Sinus tachycardia T wave abnormality, consider anterolateral ischemia Abnormal ECG Confirmed by LAINA VALLES, BHARATI ([id number]), managing editor CIELO RUFFIN ([id number]) on 01/12/2018 2:19:02 PM Referred By: Confirmed By:BHARATI MARINA MD
[2018-01-12 20:07] LABS: Fungus Stain Final report (.)
== END 2018-01-11 14:12 | disposition home or self-care (01) | DRG 871 ==
LOC: ERS 16:45 → 2NO 19:00 → ONC 01-09 20:15
PROVIDERS: ADMIT Family Medicine; ATTEND Family Medicine
PROC: 0W9B30Z Drainage of Left Pleural Cavity with Drainage Device, Percutaneous Approach (ICD-10-PCS; principal; 2018-01-06)
PROC: 0W9930Z Drainage of Right Pleural Cavity with Drainage Device, Percutaneous Approach (ICD-10-PCS; 2018-01-09)
DX: A41.9 Sepsis, unspecified organism (principal); J18.9 Pneumonia, unspecified organism; D61.1 Drug-induced aplastic anemia; C15.9 Malignant neoplasm of esophagus, unspecified; E87.1 Hypo-osmolality and hyponatremia; J91.0 Malignant pleural effusion; C79.9 Secondary malignant neoplasm of unspecified site; Z79.899 Other long term (current) drug therapy; D69.59 Other secondary thrombocytopenia; G89.29 Other chronic pain; K21.9 Gastro-esophageal reflux disease without esophagitis
CPT/HCPCS: 32554; 36415; 71045; 71046; 80048; 80053; 80202; 82150; 82805; 82945; 83605; 83615; 83735; 83986; 84157; 84443; 84478; 85007; 85025; 85027; 85060; 86850; 86900; 86901; 87040; 87070; 87102; 87116; 87205; 87206; 88112; 88305; 88313; 88341; 88342; 89051; 93005; 93010; 94640; 96361; 96365; 96367; 96375; 96376; A4216; J0692; J1100; J1650; J1885; J2001; J2270; J2405; J2920; J3370; J7050; J7620; J9267